=== PATIENT | female | born 1995 | race Caucasian/White ===

== ENCOUNTER 2018-09-19 11:54 | Emergency (ER) | payer OTHER, SELFPAY ==
[2018-09-19 11:55] VITALS: BP 100/60; PULSE 90; RESP 15; TEMP 36.6; O2SAT 96; BMI 26.6
--- NOTE | 2018-09-19 12:31 | ED.DCSUM_ITS ---
- ER Visit Summary Date of Service: 09/19/18 Chief Complaint: Lip piercing embedded in the skin History of Present Illness: The patient is a 23 F had her lower lip pierced on both sides on Thursday. Today the left lower lip piercing has retracted inside the skin and she wants it removed. Physical Examination: Well-appearing young female no acute distress. Vital signs are stable and afebrile. HEENT exam patient has piercings in both her upper and lower lip. The left lower lip piercing is retracted inside the skin. It swollen and tender. There is no obvious signs of infection at this time. Inside her mouth there is no swelling. Lungs clear to auscultation. Heart regular rhythm. Otherwise exam unremarkable. Test Results: None Emergency Department Course and Treatment: Patient did not need any lidocaine as able to manipulate the piercing back to the original hole. Discussed with the patient to the swelling in my concern that it would retract on the skin we did remove it. Also due to the amount of swelling and reported on antibiotics in case this is becoming an early infection. Treatment Plan: Keflex 500 4 times daily for 5 days. Ice to the area. Return if worse. Disposition: Discharge Impression: Removed piercing from left lower lip that was embedded in the subcutaneous tissue This note was generated with [employer] dictation software. It may contain incorrect words, spelling, and punctuation that were not noted in review of the chart prior to signing ED Disposition - Plan for ED Patient: Referrals: Phan Barreto III, MD [Primary Care Provider] -
--- NOTE | 2018-09-19 13:39 | ED.DEP ---
ED Disposition - Plan for ED Patient: Disposition: Home or Assisted Living Prescriptions: Cephalexin [Keflex] 500 mg PO Q6 #20 cap Referrals: Phan Barreto III, MD [Primary Care Provider] - As Needed Additional Instructions: Today. Motrin for Finish the 5 days of antibiotics to prevent a soft tissue infection.
== END 2018-09-19 13:52 | disposition home or self-care (01) ==
PROVIDERS: Emergency Provider Emergency Medicine; Family Provider Family Medicine; PCP Family Medicine
DX: S00.551A Superficial foreign body of lip, initial encounter (principal); W45.8XXA Other foreign body or object entering through skin, initial encounter; Y93.9 Activity, unspecified; Y92.9 Unspecified place or not applicable; Y99.9 Unspecified external cause status; Z72.0 Tobacco use
CPT/HCPCS: 99282

== ENCOUNTER → 2019-01-20 17:57 | Outpatient (CLI) | payer BC, SELFPAY ==
[2019-01-25 15:06] LABS: HPV Reflexed? NOT INDICATED
== END ==
PROVIDERS: Family Provider Family Medicine; PCP Family Medicine; Referring Provider Obstetrics & Gynecology; Visit Provider Obstetrics & Gynecology
DX: Z12.4 Encounter for screening for malignant neoplasm of cervix (principal)
CPT/HCPCS: 88175; G0145

== ENCOUNTER 2021-04-05 22:18 | Emergency (ER) | payer OTHER, SELFPAY ==
[2021-04-05 22:18] VITALS: BP 134/85; PULSE 127; RESP 19; TEMP 36.9; O2SAT 98; BMI 29.1
--- NOTE | 2021-04-05 22:30 | EX.ED.DYSGE1 ---
HPI History of Present Illness Chief Complaint: Cold Sx Informant: patient and spouse/S.O. Onset/Context/Timing Onset: Today Current Severity: Mild Maximum Severity: Moderate Narrative Narrative: Patient presents secondary to fever, sore throat, congestion, cough. Patient states that she woke this morning feeling slightly congested and her symptoms keep worsening throughout the day. Temperature has been fluctuating between 100-101. Cough has been largely nonproductive. Patient was exposed to her father who unfortunately from [facility] yesterday. Patient did have 2 doses of the Pfizer vaccine in January. She did not receive the booster. [facility] Medical History Depression PCOS (polycystic ovarian syndrome) Home Medications cephalexin 500 mg PO Q6 #20 cap 09/19/18 [Rx Last Taken Unknown] norgestimate-ethinyl estradiol [Sprintec (28)] 1 tab PO DAILY 09/19/18 [History Last Taken 09/19/18] Allergy/AdvReac Type Severity Reaction Status Date / Time No Known Allergies Allergy Verified 09/19/18 11:59 Social History Smoking Status: Current every day smoker tobacco type: cigarettes ROS ROS ED Constitutional Constitutional ED: Reports fever(s) Eyes Eyes: Denies blurry vision or change in vision ENT ENT ED: Reports rhinorrhea and sore throat Cardiovascular Cardiovascular: Reports chest pain Respiratory/Chest Respiratory/Chest: Reports cough and dyspnea; Denies sputum Gastrointestinal Gastrointestinal: Denies abdominal pain, nausea or vomiting Musculoskeletal Musculoskeletal: Denies back pain or neck pain Integumentary Denies rash Neurologic Neurologic: Denies weakness Allergic/Immunologic Allergic/Immunologic ED: Denies urticaria EXAM Physical Exam Const Vital Signs: 04/05/21 22:18 04/05/21 23:11 Temperature 98.4 F Temperature Source Temporal Pulse Rate 127 H Respiratory Rate 19 H Respiratory Effort Normal Non-Labored Respiratory Depth Normal Respiratory Pattern Normal Blood Pressure 134/85 H Blood Pressure Mean 101 Pulse Ox 98 Oxygen Delivery Method Room Air Positive well nourished and well developed General Appearance ED: well developed HEENT Reports moist mucous membranes Eyes PERRL and EOMs intact bilaterally Neck no lymphadenopathy and supple Chest Wall inspection of chest normal and palpation of chest normal Resp normal respiratory effort and clear to auscultation bilaterally Cardio regular rhythm Rate: tachycardic GI non-tender Auscultation: hypoactive bowel sounds Palpation: soft Extremity normal to inspection Neuro oriented x3 Sensorium / Orientation: alert Psych mental status grossly normal Skin no rashes or lesions noted MDM MDM MDM Narrative Medical decision making narrative: Portable chest x-ray obtained along with rapid Covid test. Radiography Chest X-Ray - ED: 1 View, Read by ED Physician, Normal, Heart, Lungs and Mediastinum Diagnostic Testing: Clinical Impression(s) from Imaging Studies Chest X-Ray 04/05/21 22:43 IMPRESSION: No acute cardiopulmonary disease. Electronically Signed: Cole Fish, at 23:04 EST Tel [phone], Service support , Treatment and Re-Evaluation Comments:: Patient's chest x-ray is clear. Covid test does return positive. We did discuss monoclonal antibodies. She will be referred for this. Patient does state that she lives in the [place] area and will likely had back home so she does not expose other family members here locally. She will contact her primary care physician to see if she can have monoclonal infusion there. I will go ahead and refer her here as well and if she is unable to get something scheduled in [place] she will return back here for monoclonal antibody treatment. The following information was communicated to the patient or caregiver: Monoclonal antibody infusion is not an FDA approved drug. The FDA has authorized the emergency use of monoclonal antibody therapy. The patient had the option to refuse or accept treatment with monoclonal antibody therapy. The patient was informed that the number of people treated with monoclonal antibody therapy at this time is small. The potential benefits and the potential risks of monoclonal antibody therapy are not fully known. Potential benefits of monoclonal antibody include a reduced risk of progressing to severe COVID-19 infection. Potential risks or side effects of monoclonal antibody therapy include allergic reactions, side effects from injection including brief pain, bleeding, bruising of the skin, soreness, swelling, possible infection at the infusion site. The patient stated understanding of this information communicated and wished to proceed with monoclonal antibody infusion therapy. The patient is appropriate for the Monoclonal Antibody Infusion. The patient states understanding of this information communicated and wishes to proceed with monoclonal antibody infusion therapy. Patient agrees to receive either Balanivimab/Etesvimab or Casirivimab/Imdevimab upon availability. Discharge Plan Triage Chief Complaint: Cold Sx ED Provider: Yesi Dias Dx/Rx/DC Orders Clinical Impression: COVID-19 Instructions: Coronavirus Disease 2019 (COVID-19): Overview, Coronavirus Disease 2019 (COVID-19): Caring for Yourself or Others Prescriptions: No Action norgestimate-ethinyl estradiol [Sprintec (28)] 1 TABLET Dose.Pack 1 tab PO DAILY RF: 0 cephalexin 500 MG capsule 500 mg PO Q6 Qty: 20 RF: 0 Stand Alone Forms: ED Work / School Excuse, Monoclonal Antibody Referral Primary Care Provider: Care Physician,No Primary Referrals: Care Physician,No Primary [Primary Care Provider] - Activity Restrictions/Additional Instructions: As discussed, contact your primary care physician to try to arrange monoclonal antibody treatment. You will be referred here at [facility] as well. Disposition Disposition: Home, Self Care
--- NOTE | 2021-04-05 22:43 | RAD_ITS ---
STUDY: X-RAY CHEST REASON FOR EXAM: Female, 26 years old. Cough. TECHNIQUE: Single AP portable view of the chest. COMPARISON: None. FINDINGS: The lungs are clear and expanded. There is no demonstrated pleural abnormality. Normal size heart. Normal mediastinum and yecenia. Normal visualized pulmonary arteries. Normal visualized aortic arch and descending thoracic aorta. Normal visualized thoracic spine. Normal visualized ribs, clavicles, and shoulders. There is no demonstrated abnormality of the visualized soft tissue structures of the upper abdomen. RAD/Chest 1 View (Portable) IMPRESSION: No acute cardiopulmonary disease. Electronically Signed: Cole Fish DO at 23:04 EST Tel [phone], Service support ,
== END 2021-04-05 23:51 | disposition home or self-care (01) ==
PROVIDERS: Emergency Provider Emergency Medicine
DX: U07.1 COVID-19 (principal); E28.2 Polycystic ovarian syndrome; F17.210 Nicotine dependence, cigarettes, uncomplicated
CPT/HCPCS: 71045; 87426; 99282

== ENCOUNTER 2024-01-17 13:42 | Emergency (ER) | payer SELFPAY ==
[2024-01-17 13:44] VITALS: BP 126/98; PULSE 99; RESP 16; TEMP 37.3; O2SAT 99; BMI 32.4
--- NOTE | 2024-01-17 14:58 | EX.ED.DYSGE1 ---
HPI History of Present Illness Chief Complaint: Edema Narrative Narrative: Chief complaint and HPI: Right cheek swelling. 29-year-old female presents for evaluation of right cheek swelling. Patient states she woke up with it today. She endorses pain in the area of the swelling. She denies any fever, chills, URI symptoms, headache, neck pain, earache, dental pain, difficulty swallowing, abdominal pain, nausea, vomiting. She denies any trauma to the face. States this has never happened to her in the past. Review of systems: See HPI Medications: As listed on the chart Allergies: As listed on the chart PFSH: Per chart Vital signs: As listed on the chart. Reviewed. Physical exam: Gen: A&O x3, NAD Head: Normocephalic, atraumatic Eyes: No sclera icterus, conjunctiva clear, PERRL, EOMI ENT: TMs clear BL, mild swelling of the right cheek externally, moist mucous membranes, posterior oropharynx unremarkable, uvula midline, tonsils not enlarged, no tonsillar exudates, multiple broken teeth and dental caries, patient's right lower wisdom tooth is breaking through the gingiva-there is stuck food in this area-has tenderness to palpation of this tooth/gingiva-states this recreates the pain she is feeling, piece of food was removed with mild gingivitis of the gum-no abscess or purulence, tolerating secretions, no oral swelling, no Steve angina, no tongue enlargement Neck: Trachea midline, No JVD, Full ROM, No meningismus CV: RRR, no murmurs, no peripheral edema Resp: Lungs CTA BL, no w/r/c Musc: Full ROM, no deformity Skin: Warm, dry, no rash Neuro: Alert, oriented, grossly intact, sensation intact Psych: Cooperative, appropriate mood and affect [facility] Medical History Depression PCOS (polycystic ovarian syndrome) Home Medications ?Medication ?Instructions ?Recorded ?Last Taken ?Type cephalexin 500 mg capsule 500 mg PO Q6 #20 caps 09/19/18 Unknown Rx norgestimate 0.25 mg-ethinyl 1 tab PO DAILY 09/19/18 09/19/18 History estradiol 35 mcg tablet (Sprintec (28)) amoxicillin 875 mg-potassium 1 tab PO Q12H 7 days #14 tabs 01/17/24 Unknown Rx clavulanate 125 mg tablet Allergy/AdvReac Type Severity Reaction Status Date / Time No Known Allergies Allergy Verified 01/17/24 13:44 Social History Smoking Status: Former smoker EXAM Physical Exam Const Vital Signs: 01/17/24 13:44 01/17/24 14:23 01/17/24 15:18 Temperature 99.1 F 99.1 F Temperature Source Oral Pulse Rate 99 99 Respiratory Rate 16 16 Respiratory Effort Normal Non-Labored Respiratory Pattern Normal Blood Pressure 126/98 H 126/98 H Blood Pressure Mean 107 107 Pulse Ox 99 99 Oxygen Delivery Method Room Air MDM MDM MDM Narrative Medical decision making narrative: 29-year-old female presents for evaluation of right cheek swelling. See physical exam findings. Differential diagnosis includes dental infection, dental abscess, dental carry. No dental abscess visualized on exam for I&D. Concern is for dental infection. Patient was educated on ibuprofen and Tylenol as needed for pain. Will prescribe her with a 7-day course of Augmentin. She is to follow-up with her dentist or a dentist that was provided to her with the clinic list. She confirmed understanding. Return precautions explained. Impression: 1. Right lower molar dental infection 2. Multiple dental caries Discharge Plan Triage Chief Complaint: Edema ED Provider: Bruno Corrigan Dx/Rx/DC Orders Clinical Impression: Dental infection Instructions: Dental Abscess Prescriptions: New amoxicillin-pot clavulanate 875-125 mg tablet 1 tab PO Q12H 7 Days Qty: 14 0RF No Action norgestimate-ethinyl estradiol [Sprintec (28)] 1 TABLET tablet 1 tab PO DAILY Patient Comments: TAKE 1 TABLET BY MOUTH EVERY DAY cephalexin 500 MG capsule 500 mg PO Q6 Qty: 20 0RF Primary Care Provider: Care Physician,No Primary Referrals: Care Physician,No Primary [Primary Care Provider] - Activity Restrictions/Additional Instructions: Follow-up with your dentist or one of the dental clinics that was provided to you. Take all of your antibiotics. Motrin and Tylenol as needed for pain. Return back if symptoms change or worsen. Print Language: Taiwanese Disposition Disposition: Home, Self Care Discharge Date/Time: 01/17/24 15:20
[2024-01-17 15:18] VITALS: BP 126/98; PULSE 99; RESP 16; TEMP 37.3; O2SAT 99
== END 2024-01-17 15:20 | disposition home or self-care (01) ==
LOC: ED 15:08
PROVIDERS: Emergency Provider Surgery; Visit Provider Surgery
DX: K04.7 Periapical abscess without sinus (principal); Z87.891 Personal history of nicotine dependence; R60.9 Edema, unspecified; K02.9 Dental caries, unspecified
CPT/HCPCS: 99282

== ENCOUNTER 2024-10-24 15:55 | Emergency (ER) | payer BC, SELFPAY ==
[2024-10-24 15:56] VITALS: BP 128/89; PULSE 101; RESP 16; TEMP 36.6; O2SAT 100; BMI 33.7
--- NOTE | 2024-10-24 16:25 | ED.VIS.DENTA ---
HPI History of Present Illness Chief Complaint: Dental Informant: patient Onset/Context/Timing Onset: Days Context: Gradual Onset Timing: Intermittent Maximum Severity: Moderate Narrative Narrative: 28-year-old female no past medical history. Having left upper dental pain intermittently the last several days to weeks. Also has known cavities on the right lower jaw. Currently does not have dental insurance. Prior similar symptoms: Yes Recent Illness/Hospitalization: No PFSH PFSH Medical History Physical exam, pre-employment Depression PCOS (polycystic ovarian syndrome) Home Medications ?Medication ?Instructions ?Recorded ?Last Taken ?Type cephalexin 500 mg capsule 500 mg PO Q6 #20 caps 09/19/18 Unknown Rx norgestimate 0.25 mg-ethinyl 1 tab PO DAILY 09/19/18 09/19/18 History estradiol 0.035 mg tablet (Sprintec (28)) amoxicillin 875 mg-potassium 1 tab PO Q12H 7 days #14 tabs 01/17/24 Unknown Rx clavulanate 125 mg tablet penicillin V potassium 500 mg 500 mg PO 4X/DAY #40 tabs 10/24/24 Unknown Rx tablet Allergy/AdvReac Type Severity Reaction Status Date / Time No Known Allergies Allergy Verified 01/17/24 13:44 Social History Smoking Status: Never smoker ROS ROS ED ROS Narrative Denies recent illness. Constitutional Constitutional ED: Denies chills or fever(s) Eyes Eyes: Denies blurry vision ENT ENT ED: Denies ear pain Cardiovascular Cardiovascular: Denies chest pain Respiratory/Chest Respiratory/Chest: Denies cough or dyspnea Gastrointestinal Gastrointestinal: Denies abdominal pain Genitourinary Genitourinary ED: Denies dysuria or hematuria Musculoskeletal Musculoskeletal: Denies arthralgias or back pain Integumentary Denies abscess or Abrasions Neurologic Neurologic: Denies headache(s) Psychiatric Psychiatric: Denies anxiety Endocrine Endocrinology: Denies cold intolerance Hematologic/Lymphatic Hematologic/Lymphatic: Denies easy bleeding Allergic/Immunologic Allergic/Immunologic ED: Denies mouth swelling EXAM Physical Exam Narrative Exam Narrative: Well-appearing 29-year-old female sitting upright in bed. Vital signs stable afebrile. No distress. H EENT exam left upper dentition midportion third to last molar there is a chip in the posterior aspect. There is no gingival swelling or abscess. Mildly tender. Right lower jaw there is no swelling but she has 2 large cavities decaying the tooth down to the gingiva. There is no abscess. No trismus. Posterior pharynx normal. No trouble swallowing or breathing. Underneath the tongue is normal in appearance. No Toya's. Neck nontender no lymphadenopathy. Lungs clear to auscultation bilaterally. Heart regular rhythm no murmur. Abdomen soft nontender. Moving all 4 extremities. Awake and alert. Const Vital Signs: 10/24/24 15:56 Temperature 97.8 F Temperature Source Temporal Pulse Rate 101 H Respiratory Rate 16 Blood Pressure 128/89 H Blood Pressure Mean 102 Pulse Ox 100 Oxygen Delivery Method Room Air Positive well nourished and well developed; Negative for cachectic, contractures or unkempt General Appearance ED: well developed and NAD; Negative for unkempt, cachectic or contractures Nutritional Appearance: Negative for cachectic HEENT HEENT Narrative: Left upper molar through from the back is chipped. Right lower jaw molars large cavity is decayed to the gumline. Minimal gingival swelling no abscess. No trismus. No trouble swallowing or breathing. Negative for trauma Mouth ED: Yes oral and palatal mucosa normal, Yes lips normal, Yes tongue normal and Yes salivary gland normal Mouth: oral and palatal mucosa normal, lips normal, tongue normal and salivary gland normal Teeth and Gingiva: abnormal tooth and associated gingiva, caries and poor dentition Throat: posterior oropharynx normal Eyes PERRL and EOMs intact bilaterally Neck no lymphadenopathy, supple and no JVD Lymph Lymphatic: no lymphadenopathy noted Chest Wall inspection of chest normal and palpation of chest normal Resp normal respiratory effort, no retractions and clear to auscultation bilaterally Cardio regular rate, regular rhythm, S1 normal heart sound, S2 normal heart sound and no murmurs GI normal to inspection, nondistended, normoactive bowel sounds, non-tender, non-distended and no masses Back/Spine no CVA tenderness Extremity no joint enlargement Neuro oriented x3, CN's II-XII intact bilaterally, moves all extremities and no focal motor deficits Sensorium / Orientation: oriented to person, oriented to place and oriented to time Motor Exam: strength 5/5 throughout Psych mental status grossly normal Appearance: Negative for unkempt Skin no rashes or lesions noted and no wounds Image ED - URI/Dental Diagram:  1. Fractured left upper third molar from the back. 2. Large cavity decay of the third molar on the right bottom and first premolar. MDM MDM MDM Narrative Medical decision making narrative: 29-year-old with placed on Pen-Vee K for dental cavities and gingival swelling. Also has a dental fracture. She [facility]. History & Record Review Discussion w/independent historian: Patient Discharge Plan Triage Chief Complaint: Dental ED Provider: Ruslan Wade Dx/Rx/DC Orders Clinical Impression: Pain, dental, Fracture of tooth, Dental cavity Instructions: ED Dental Pain, ED Dental Cavity Prescriptions: New penicillin V potassium 500 mg tablet 500 mg PO 4X/DAY Qty: 40 0RF No Action norgestimate-ethinyl estradiol [Sprintec (28)] 1 TABLET tablet 1 tab PO DAILY Patient Comments: TAKE 1 TABLET BY MOUTH EVERY DAY cephalexin 500 MG capsule 500 mg PO Q6 Qty: 20 0RF amoxicillin-pot clavulanate 875-125 mg tablet 1 tab PO Q12H 7 Days Qty: 14 0RF Primary Care Provider: Gopal Galarza Referrals: Care Physician,No Primary [Non-Staff] - [facility] [Non-Staff] - As soon as possible Activity Restrictions/Additional Instructions: Ice to your jaw. Motrin and Tylenol for pain. Penicillin 4 times a day. Call the [facility] tell them you need dental care for fractured tooth and cavities and get an appointment set up. They are across the street from the hospital. Print Language: Wolof Disposition Disposition: Home, Self Care
[2024-10-24 16:42] VITALS: BP 122/90; PULSE 81; RESP 18; TEMP 36.9; O2SAT 100
--- OUTSIDE RECORDS SUMMARY | 2024-10-24 21:26 | XMS RPT_ITS | CCD ---
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 Name Role Phone No, Physician Primary Care Provider Santino Al DO, Lele Alvaardo Primary Care Provider CARRIE JEAN-BAPTISTE Attending LELE Viera Primary Care Unavaila ble PARVEEN, KELECHI EDWARD Admitting Unavailabl e PARVEEN, KELECHI EDWARD Attending LELE Flowers Primary Care Unavaila ble PARVEEN, KELECHI EDWARD Admitting Unavailabl e PARVEEN, KELECHI EDWARD Referring UnavailLELE Aguilera Primary Care Unavaila ble PARVEEN, KELECHI EDWARD Admitting UnavailANCELMO Covington Attending LELE Flowers Primary Care Unavaila ANCELMO Esteves Attending UnavailLELE Aguilera Primary Care Unavaila LELE Castañeda Primary Care Unavaila LELE Castañeda Attending Unavaila LELE Castañeda Primary Care Unavaila ble PARVEEN, KELECHI EDWARD Attending MARCO ANTONIO Leyva Referring Unavail LELE Gonzalez Primary Care Unavaila ble PARVEEN, KELECHI EDWARD Admitting Unavailabl e PARVEEN, KELECHI EDWARD Referring UnavailLELE Aguilera Primary Care Unavaila LELE Castañeda Attending Unavaila LELE Castañeda Primary Care Unavaila ble PARVEEN, KELECHI EDWARD Attending LELE Flowers Primary Care Unavaila LELE Castañeda Attending Unavaila LELE Castañeda Primary Care Unavaila ble Servando DO, Lele Alvarado Primary Care Provider AUGUSTA KERR Attending Unavailable LELE AL Primary Care Unavaila ble SERVANDO, LELE ALVARADO Primary Care Unavaila ble AUGUSTA KERR Attending Unavailable LELE AL Primary Care Unavaila SOCO Renteria Attending Unavailabl e No, Physician Primary Care Provider UnavailKeaton Browning Unavailable Unavailable MARZENA SULTANA Attending Unavailable NO, PHYSICIAN Primary Care Unavailable SERVANDO, LELE ALVARADO Primary Care Unavaila CAROLINE Meyer Attending Unavail able Care Physician, No Primary Primary Care Unava ilable Kali Dawkins Attending Unavailable Care Physician, No Primary Referring Unava ilable Care Physician, No Primary Primary Care Unava ilable Kali Dawkins Attending Unavailable Care Physician, No Primary Referring Unava ilable Care Physician, No Primary Primary Care Unava ilable Bruno Corrigan Attending Unavailbuck Galarza DO, [facility] Primary Care Provid er GEOVANNI CATO SHRADDHA Attending Dwight GALARZA, [facility] Primary Care Dwight GALARZA, [facility] Attending Dwight RODARTE Referring Unavailable [facility] Primary Care Unavamariposa GALARZA, CATO SHRADDHA Attending Dwight GALARZA, [facility] Primary Care Vivianavamraiposa GALARZA CATO SHRADDHA Attending Dwight GALARZA, [facility] Primary Care Unavamariposa GALARZA, [facility] Primary Care VivianavaWEDNY Maloney Attending Unavailable [facility], [facility] Primary Care ANUSHA Flores Referring Unavailable [facility], [facility] Primary Care Unavamariposa lablily GALARZA, [facility] Primary Care Unavamariposa GALARZA, CATO SHRADDHA Referring Unavamariposa lablily GALARZA, [facility] Primary Care Unavamariposa GALARZA, CATO SHRADDHA Referring UnavaLOC Maldonado Attending Unavailable GEOVANNI [facility] Dwight GALARZA [facility] WENDY Schreiber Attending Gigi GALARZA [facility] WENDY Schreiber Attending WENDY Greenberg Referring Unavailable Dr. Ruslan Wade MD Emergency Provider Dr. Gopal Galarza DO Primary Care Provider Medications Current Medications Medication Drug Class(es) Dates Sig (Normalized) Sig (Original) amoxicillin 875 mg / clavulanate 125 mg oral tablet (1 source) Penicillin-class Antibacterial Start: 01-17-2024 Amoxicillin-Pot Clavulanate 875-125 mg tablet Active 1 {tbl} PO Q12H 14 7 0 January 17, 2024 12:00am cephalexin 500 mg oral capsule (1 source) Cephalosporin Antibacterial Start: 09-19-2018 take 1 capsule by mouth every six hours Cephalexin 500 MG capsule Active 500 mg PO EVERY 6 HOURS 20 0 September 19, 2018 12:00am citalopram 40 mg oral tablet (14 sources) Serotonin Reuptake Inhibitor Start: 08-30-2024 End: 08-30-2025 take 1 tablet by mouth once daily citalopram (CELEXA) 40 mg tablet Take 1 tablet by mouth once daily. 90 tablet 3 08/30/2024 08/30/2025 Active Start: 05-26-2024 End: 08-31-2024 take 0.5 tablet by mouth once daily, then take 1 tablet by mouth once daily citalopram (CELEXA) 20 mg tablet Indications: Anxiety with depression Take 0.5 tablets by mouth once daily for 7 days, THEN 1 tablet once daily. 94 tablet 05/26/2024 08/31/2024 Active Norgestimate-Ethinyl Estradiol (1 source) Progestin, Estrogen Start: 09-19-2018 take 1 tablet by mouth once daily Norgestimate-Ethinyl Estradiol (Sprintec (28)) 1 TABLET tablet Active 1 {tbl} PO DAILY September 19, 2018 12:00am etonogestrel 68 mg drug implant (5 sources) Progestin Start: 09-22-2024 End: 09-22-2027 etonogestrel (NEXPLANON) subdermal implant 68 mg Indications: Insertion of implantable subdermal contraceptive 1 each by SUBDERMAL route as directed. 1 each 09/22/2024 09/22/2027 Active FLUoxetine 20 mg oral capsule (20 sources) Serotonin Reuptake Inhibitor Start: 01-07-2021 End: 02-23-2022 take 3 capsules by mouth once daily FLUoxetine (PROzac) 20 MG capsule Indications: Depression, unspecified depression type Take 3 (three) capsules (60 mg total) by mouth daily . 270 capsule 0 11/25/2021 Active Start: 12-04-2020 End: 12-04-2021 take 1 capsule by mouth once daily FLUoxetine (PROZAC) 40 MG capsule Indications: Depression, unspecified depression type Take 1 (one) capsule (40 mg total) by mouth daily . 30 capsule 11 12/04/2020 01/07/2021 Discontinued Start: 11-06-2020 End: 11-06-2021 take 1 capsule by mouth once daily FLUoxetine (PROZAC) 20 MG capsule Indications: Depression, unspecified depression type Take 1 (one) capsule (20 mg total) by mouth daily . 30 capsule 2 11/06/2020 12/04/2020 Discontinued metFORMIN hydrochloride 500 mg oral tablet (20 sources) Biguanide Start: 05-26-2024 End: 08-31-2024 take 1 tablet by mouth once daily at breakfast, then take 1 tablet by mouth twice daily at mealtime metFORMIN (GLUCOPHAGE) 500 mg tablet Indications: PCOS (polycystic ovarian syndrome) Take 1 tablet by mouth daily with breakfast for 7 days, THEN 1 tablet two times a day with meals. 187 tablet 05/26/2024 Active Start: 08-26-2020 take 1 tablet by saritha th twice daily metFORMIN (GLUCOPHAGE) 500 MG tablet Indications: polycystic ovarian syndrome Take 1 tablet by mouth 2 (two) times a day Reasons: polycystic ovarian syndrome, a disease with cysts in the ovaries. 0 08/26/2020 Active metroNIDAZOLE 500 mg oral tablet (1 source) Nitroimidazole Antimicrobial Start: 09-29-2020 End: 10-06-2020 take 1 tablet by mouth twice daily metroNIDAZOLE (FlagyL) 500 MG tablet Indications: Bacterial vaginosis Take 1 (one) tablet (500 mg total) by mouth 2 (two) times a day for 7 days . 14 tablet 0 09/29/2020 10/06/2020 Active penicillin v potassium 500 mg oral tablet (5 sources) Start: 10-24-2024 take 1 tablet by mouth four times daily Penicillin V Potassium 500 mg tablet Active 500 mg PO 4 TIMES DAILY 40 0 October 24, 2024 12:00am Start: 11-20-2020 End: 12-04-2020 penicillin v potassium (VEET ID) 500 MG tablet triamcinolone acetonide 1 mg/ml topical cream (1 source) Corticosteroid Start: 03-05-2022 End: 04-04-2022 triamcinolone (KENALOG) 0.1 % cream Apply topically 2 (two) times a day . 15 g 0 03/05/2022 04/04/2022 Active Completed/Discontinued Medications Medication Drug Class(es) Dates Sig (Normalized) Sig (Original) acetaminophen 325 mg / HYDROcodone bitartrate 5 mg oral tablet (4 sources) Opioid Agonist Start: 11-20-2020 End: 12-04-2020 HYDROcodone-acetam inophen (NORCO) 5-325 mg per tablet [id number] 200 actuat albuterol 0.09 mg/actuat metered dose inhaler (1 source) beta2-Adrenergic Agonist Start: 11-03-2018 End: 05-26-2024 take 2 puff(s) by inhalation every six hours as needed albuterol HFA (PROAIR HFA) 90 mcg/actuation inhaler Inhale 2 Puffs as instructed every 6 hours as needed. 1 Inhaler 11/03/2018 05/26/2024 Discontinued (Course of therapy completed) amoxicillin 500 mg oral capsule (1 source) Penicillin-class Antibacterial Start: 10-10-2015 End: 05-26-2024 take 1 capsule by mouth three times daily amoxicillin (POLYMOX, AMOXIL) 500 mg capsule Take 1 capsule by mouth three times daily. 30 capsule 0 10/10/2015 05/26/2024 Discontinued (Course of therapy completed) benzonatate 100 mg oral capsule (1 source) Non-narcotic Antitussive Start: 11-03-2018 End: 05-26-2024 take 2 capsules by mouth every eight hours as needed benzonatate (TESSALON PERLE) 100 mg capsule Take 2 capsules by mouth three times daily as needed. 30 capsule 11/03/2018 05/26/2024 Discontinued (Course of therapy completed) clonazePAM 0.5 mg oral tablet (8 sources) Benzodiazepine Start: 06-02-2024 End: 08-31-2024 take 1 tablet by mouth twice daily as needed for anxiety clonazePAM (KLONOPIN) 0.5 mg tablet Indications: VIVIANA (generalized anxiety disorder) , Panic disorder Take 1 tablet by mouth two times a day as needed for anxiety for up to 7 days. 14 tablet 06/02/2024 08/31/2024 Discontinued (Discontinued by Patient) diclofenac sodium 75 mg delayed release oral tablet (5 sources) Nonsteroidal Anti-inflammatory Drug Start: 11-06-2020 End: 11-06-2021 take 1 tablet by mouth twice daily at mealtime diclofenac sodium (VOLTAREN) 75 MG EC tablet Indications: Ganglion of wrist, unspecified laterality Take 1 (one) tablet (75 mg total) by mouth 2 (two) times a day with meals . 60 tablet 0 11/06/2020 12/04/2020 Discontinued drospirenone / Ethinyl Estradiol (6 sources) Progestin, Estrogen Start: 08-25-2024 End: 09-22-2024 take 1 tablet by mouth once daily Drospirenone-Ethin yl Estradiol (MUKESH, 28,) 3-0.02 mg per tablet Indications: Encounter for initial prescription of contraceptive pills Take 1 tablet by mouth once daily. 84 tablet 3 08/25/2024 09/22/2024 Discontinued (Discontinued by Patient) Start: 08-25-2024 End: 07-27-2025 take 1 tablet by mouth once daily Drospirenone-Ethinyl Estradiol (MUKESH, 28,) 3-0.02 mg per tablet Indications: Encounter for initial prescription of contraceptive pills Take 1 tablet by mouth once daily. 84 tablet 3 08/25/2024 07/27/2025 Active Start: 06-10-2024 End: 05-12-2025 take 1 tablet by mouth once daily Drospirenone-Ethinyl Estradiol (MUKESH, 28,) 3-0.02 mg per tablet Indications: Encounter for initial prescription of contraceptive pills Take 1 tablet by mouth once daily. 84 tablet 3 06/10/2024 05/12/2025 Active fluconazole 150 mg oral tablet (7 sources) Azole Antifungal Start: 02-27-2021 End: 07-11-2021 fluconazole (DIFLUCAN) 150 MG tablet Indications: Vaginal discharge Take 1tab today and repeat in 72 hours if sx persist . 2 tablet 0 02/27/2021 07/11/2021 Discontinued Start: 09-29-2020 End: 11-06-2020 fluconazole (DIFLUCAN) 150 M G tablet Indications: Vaginal discharge Take 1 tab PO today, then repeat a dose in 3 days. . 2 tablet 0 09/29/2020 11/06/2020 Discontinued hydrocortisone 10 mg/ml / neomycin 3.5 mg/ml / polymyxin b [id number] unt/ml otic suspension (1 source) Aminoglycoside Antibacterial, Polymyxin-class Antibacterial, Corticosteroid Start: 10-10-2015 End: 05-26-2024 qzzjubvc-qshiantxe-qnlwndduu isone (CORTISPORIN) 3.5-10,000-1 mg/mL-unit/mL-% otic suspension Use 3 Drops in both ears three times daily. 1 Bottle 0 10/10/2015 05/26/2024 Discontinued (Course of therapy completed) ibuprofen 800 mg oral tablet (5 sources) Nonsteroidal Anti-inflammatory Drug Start: 11-29-2020 End: 07-11-2021 take 1 tablet by mouth every six hours as needed ibuprofen (ADVIL,MOTRIN) 800 MG tablet Take 800 mg by mouth every 6 (six) hours as needed for pain . 0 11/29/2020 07/11/2021 Discontinued Problems Active Problems Problem Classification Problem Date Documented Date Episodic/Chronic Administrative/socia l admission (8 sources) Patient encounter status; Translations: [Persons encountering health services in other specified circumstances] Episodic Allergic reactions (2 sources) Dermatitis, unspecified; Translations: [Dermatitis, unspecified] Onset: 03-05-2022 Episodic Anxiety disorders (20 sources) Mixed anxiety and depressive disorder; Translations: [Other specified anxiety disorders] Onset: 05-26-2024 05-26-2024 Chronic Contraceptive and procreative management (3 sources) Encounter for initial prescription of contraceptive pills; Translations: [History of contraceptive usage] Onset: 06-10-2024 08-31-2024 Episodic Disorders of teeth and jaw (3 sources) Dental caries; Translations: [Dental caries, unspecified] 10-24-2024 Episodic E Codes: Fall (1 source) Fall; Translations: [Unspecified fall, initial encounter] 06-07-2024 Episodic Headache; including migraine (2 sources) Tension-type headache, unspecified, not intractable; Translations: [Tension-type headache, unspecified, not intractable] Onset: 03-05-2022 Chronic Immunizations and screening for infectious disease (3 sources) Contact with and (suspected) exposure to other viral communicable diseases; Translations: [Exposure to SARS-associated coronavirus] Onset: 10-10-2024 Episodic Inflammatory diseases of female pelvic organs (1 source) Bacterial vaginosis; Translations: [Acute vaginitis] Episodic Menstrual disorders (9 sources) Amenorrhea; Translations: [Amenorrhea, unspecified] Onset: 06-10-2024 06-10-2024 Chronic Mood disorders (19 sources) Depressive disorder; Translations: [Major depressive disorder, single episode, unspecified] Onset: 11-06-2020 Chronic Other endocrine disorders (20 sources) Polycystic ovary syndrome; Translations: [Polycystic ovarian syndrome] Onset: 07-11-2021 Chronic Other endocrine disorders (1 source) Polycystic ovarian syndrome; Translations: [PCOS (polycystic ovarian syndrome)] Onset: 05-26-2024 Chronic Other female genital disorders (1 source) Abnormal uterine bleeding; Translations: [Abnormal uterine and vaginal bleeding, unspecified] 08-02-2024 Chronic Other female genital disorders (1 source) Abnormal uterine and vaginal bleeding, unspecified; Translations: [Abnormal uterine bleeding] Onset: 08-02-2024 Chronic Other female genital disorders (3 sources) Vaginal discharge; Translations: [Other specified noninflammatory disorders of vagina] Episodic Other non-traumatic joint disorders (4 sources) Acute ankle pain; Translations: [Pain in left ankle and joints of left foot] 06-07-2024 Episodic Other nutritional; endocrine; and metabolic disorders (18 sources) Obesity; Translations: [Class 1 obesity with body mass index (BMI) of 33.0 to 33.9 in adult, unspecified obesity type, unspecified whether serious comorbidity present] Onset: 05-29-2024 05-26-2024 Chronic Other nutritional; endocrine; and metabolic disorders (1 source) Body mass index (BMI) 38.0-38.9, adult; Translations: [Class 2 obesity with body mass index (BMI) of 38.0 to 38.9 in adult, unspecified obesity type, unspecified whether serious comorbidity present] Onset: 07-15-2024 Chronic Other nutritional; endocrine; and metabolic disorders (1 source) Body mass index (BMI) 37.0-37.9, adult; Translations: [Class 2 obesity with body mass index (BMI) of 37.0 to 37.9 in adult, unspecified obesity type, unspecified whether serious comorbidity present] Onset: 06-10-2024 Chronic Other nutritional; endocrine; and metabolic disorders (1 source) Body mass index (BMI) 33.0-33.9, adult; Translations: [Class 1 obesity with body mass index (BMI) of 33.0 to 33.9 in adult, unspecified obesity type, unspecified whether serious comorbidity present] Onset: 05-29-2024 Chronic Other screening for suspected conditions (not mental disorders or infectious disease) (6 sources) Encounter for screening for lipoid disorders; Translations: [Encounter for screening for other suspected endocrine disorder] Onset: 05-26-2024 10-10-2024 Episodic Other skin disorders (1 source) Abnormal hair finding; Translations: [Other hair color and hair shaft abnormalities] 05-27-2024 Episodic Other upper respiratory infections (2 sources) Acute upper respiratory infection, unspecified; Translations: [Acute upper respiratory infection, unspecified] Onset: 03-05-2022 Episodic Residual codes; unclassified (1 source) Edema, unspecified; Translations: [Edema, unspecified] Onset: 02-11-2024 Episodic Residual codes; unclassified (9 sources) FH: Polycystic kidney; Translations: [Family history of polycystic kidney] Onset: 07-26-2024 07-26-2024 Episodic Residual codes; unclassified (1 source) Family history of polycystic kidney; Translations: [Family history of polycystic kidney] Onset: 07-15-2024 Episodic Sexually transmitted infections (not HIV or hepatitis) (2 sources) Human papillomavirus deoxyribonucleic acid test positive, high risk on cervical specimen; Translations: [Cervical high risk human papillomavirus (HPV) DNA test positive] 10-19-2024 Episodic Skull and face fractures (1 source) Fracture of tooth ; Translations: [Fracture of tooth (traumatic), initial encounter for closed fracture] 10-24-2024 Episodic Sprains and strains (3 sources) Sprain of unspecified ligament of right ankle, initial encounter; Translations: [Sprain of left ankle] Onset: 06-12-2021 Episodic Unclassified (1 source) Class 2 obesity with body mass index (BMI) of 38.0 to 38.9 in adult, unspecified obesity type, unspecified whether serious comorbidity present; Translations: [Class 2 obesity with body mass index (BMI) of 38.0 to 38.9 in adult, unspecified obesity type, unspecified whether serious comorbidity present] Onset: 07-15-2024 Unclassified (1 source) Class 2 obesity with body mass index (BMI) of 37.0 to 37.9 in adult, unspecified obesity type, unspecified whether serious comorbidity present; Translations: [Class 2 obesity with body mass index (BMI) of 37.0 to 37.9 in adult, unspecified obesity type, unspecified whether serious comorbidity present] Onset: 06-10-2024 Unclassified (1 source) Class 1 obesity with body mass index (BMI) of 33.0 to 33.9 in adult, unspecified obesity type, unspecified whether serious comorbidity present; Translations: [Class 1 obesity with body mass index (BMI) of 33.0 to 33.9 in adult, unspecified obesity type, unspecified whether serious comorbidity present] Onset: 05-29-2024 Viral infection (14 sources) Herpetic vulvovaginitis; Translations: [Herpesviral vulvovaginitis] Onset: 08-30-2015 08-30-2015 Chronic Viral infection (1 source) Disease caused by 2019-nCoV; Translations: [COVID-19] 04-05-2021 Episodic Past or Other Problems Problem Classification Problem Date Documented Da te Episodic/Chronic Other connective tissue disease (17 sources) Ganglion cyst of right wrist; Translations: [Ganglion, right wrist] Onset: 11-27-2020 Episodic Other connective tissue disease (15 sources) Ganglion of wrist; Translations: [Ganglion, unspecified wrist] Onset: 11-06-2020 Episodic Other injuries and conditions due to external causes (7 sources) Injury of right ankle; Translations: [Unspecified injury of right ankle, subsequent encounter] Onset: 07-11-2021 Episodic Other non-traumatic joint disorders (2 sources) Pain in right ankle and joints of right foot; Translations: [Pain in right ankle and joints of right foot] Onset: 06-12-2021 Episodic Other non-traumatic joint disorders (1 source) Pain in left ankle and joints of left foot; Translations: [Acute left ankle pain] Onset: 06-07-2024 Episodic Results Test Name Value Interpretation Reference Range Facility BACTERIAL VAGINOSIS NAATon 0 10-10-2024 Lactobacillus crispatus+gasseri+shital senii + Gardnerella vaginalis + Atopobium vaginae rRNA VICKY+probe Ql (Vag fld) Not detected Normal Not detected [facility] Comment on above: Order Comment: Speci men Type: SWABOrdering Facility: [facility] Address: [address] [place] [address] Performed By: #### C VTV, BVAMP ####[facility] LABCLIA [id number] [place] [address] [place] VERÓNICA/TRICHOMONAS NAATon 0 10-10-2024 C. glabrata RNA VICKY+probe Ql (Vag fld) Not detected Normal Not detected [facility] Comment on above: Order Comment: Speci men Type: SWABOrdering Facility: [facility] Address: [address] [place] [address] Performed By: #### C VTV, BVAMP ####[facility] LABIA [id number] [address] [place] Verónica sp DNA VICKY+probe Ql (Vag fld) Not detected Normal Not detected [facility] Comment on above: Order Comment: Speci men Type: SWABOrdering Facility: [facility] Address: [address] [place] [address] Result Comment: The Verónica species group target includes C. albicans, C. tropicalis, C. parapsilosis, and C. dubliniensis. Performed By: #### C VTV, BVAMP ####[facility] LABIA [id number] [place] [address] [place] T. vaginalis DNA VICKY+probe Ql (Unsp spec) Not detected Normal Not detected [facility] Comment on above: Order Comment: Speci men Type: SWABOrdering Facility: [facility] Address: [address] [place] [address] Performed By: #### C VTAmadou, BVAMP ####[facility] LABDESIREE [id number] [place] [address] [place] [facility] CNOVon 10-10-2024 CNOV Office Visit (OBGYWM ) DICKERSON,RUFINA Goel ([id number]) 1995 F Date Time Provider Department 10/10/24 4:00 PM WENDY BENNETT OBGYWM During your visit today, we recorded the following information about you: Blood pressure Weight Height 128/74 91.3 kg 1.628 m Wendy Bennett APRN.CNM 10/10/2024 4:36 PM 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 History Comments: Sexual Activity: Yes; Male Contraception: Pill Menstrual Tracking History Flowsheet Row Office Visit from 08/31/2024 in OB/Gynecology Menstrual Flow Moderate PAST MEDICAL HISTORY Diagnosis Date Abnormal glandular Papanicolaou smear of cervix 2020 Anxiety Depression Insomnia PCOS (polycystic ovarian syndrome) PAST SURGICAL HISTORY Procedure Laterality Date CYST/MOLE REMOVAL gaglean NEXPLANON INSERTION Left 09/22/2024 Placed in office VAGINOSCOPY 2020 Pt reported FAMILY HISTORY Problem Relation Age of Onset other (iron deficient) Mother Kidney Disease Father No Known Problems Sister Hypothyroidism Sister Diabetes Maternal Grandmother SOCIAL HISTORY Social History Tobacco Use Smoking status: Never Smokeless tobacco: Never Vaping Use Vaping status: Never Used Substance Use Topics Alcohol use: Yes Comment: socially Drug use: Yes Types: Marijuana REVIEW OF SYSTEMS Abdomen: No abdominal pain, nausea, vomiting, diarrhea, or constipation. No bloating, early satiety, indigestion, or increased flatulence. Bladder: No dysuria, gross hematuria, urinary frequency, urinary urgency, or incontinence. Breast: No breast lumps, nipple d/c, overlying skin changes, redness or skin retraction. Allergies and current medication updated:Yes SENSITIVE EXAM: The sensitive examination was discussed with the Patient or Patient's Authorized Vice President Media Relations. As applicable, any other physician, advance practice provider, medical student, or other health professional student that will be observing or involved in the sensitive examination for educational or training purposes was discussed with the Patient or Authorized Vice President Media Relations. The Patient or Authorized Vice President Media Relations has agreed to proceed with the sensitive examination. (Sensitive examination includes inspection and/or palpation of the breasts, pelvis, prostate and anorectal regions). EXAM: BP 128/74 Ht 5' 4.094 (1.63m) Wt 201 lb 3.2 oz (91.3kg) LMP 09/07/2024 BMI 34.43 kg/(m2). GENERAL: pleasant, female in no apparent distress HEENT: Normocephalic and atraumatic NECK: Supple and full range of motion DERMATOLOGY: Normal and without lesions BREAST: soft, non-tender, symmetric, no dominant mass, normal nipple-areolar complex, no lymphadenopathy, no nipple discharge, and bilateral piercings CHEST: Normal inspiratory effort ABDOMEN: soft, non-tender, and no masses PELVIC: external genitalia normal, normal Bartholin's glands, urethra, Almanor's glands, no vulvar lesions, no cervical lesions, good vaginal support, normal appearing perineal body and perianal region. Increased white/yellow discharge present. Cervix friable BIMANUAL: uterus normal size, shape and consistency, no adnexal masses, non-tender, and no cervical motion tenderness RECTOVAGINAL: deferred. NEURO: alert and oriented x3,exam grossly non-focal EXTREMITIES: normal ASSESSMENT/PLAN: 1) Health maintenance: Pap done with HPV. Nutrition, exercise and routine health maintenance exams reviewed. HPV vaccine: discussed, not interested 2) Contraception: Nexplanon. Contraceptive options reviewed and information provided. 3) STD screening: Declined STD check. 4) YEAST/BV- collected and sent Follow up one year or sooner as needed Wendy Bennett APRN.CNM Allergies As of Date: 10/10/2024 (No Known Allergies) Date Reviewed: 10/10/2024 Reviewed by: Betty Molina LPN - Fully Assessed Reason for Visit: Well Woman [1463] Primary Visit Diagnosis:Encounter for gynecological examination (general) (routine) without abnormal findings [Z01.419] Other Visit Diagnoses:Screening for cervical cancer [Z12.4] Encounter for screening for human papillomavirus (HPV) [Z11.51] (more content not included)... Normal [facility] HIGH RISK HUMAN PAPILLOMA GRAZYNA (HPV), PCR FOR DETECTION AND GENOTYPINGon 10-10-2024 HPV 16 Ag Ql (Unsp spec) Not detected Normal Not detected [facility] Comment on above: Order Comment: Speci men Type: FLUID SPECIMENOrdering Facility: [facility] Address: [address] [place] [address] Performed By: #### H PVHRT ####[facility] LABIA [id number] [place] [address] [place] HPV 18 Ag Ql (Unsp spec) Not detected Normal Not detected [facility] Comment on above: Order Comment: Speci men Type: FLUID SPECIMENOrdering Facility: [facility] Address: [address] [place] [address] Performed By: #### H PVHRT ####[facility] [id number] [place] [address] [place] HPV 31+33+35+39+45+51+52+ 56+58+59+66+68 DNA VICKY+probe Ql (Cvx) Detected Abnormal Not detected [facility] Comment on above: Order Comment: Speci men Type: FLUID SPECIMENOrdering Facility: [facility] Address: [address] [place] [address] Result Comment: High Risk HPV Other Type includes HPV types 31, 33, 35, 39, 45, 51, 52, 56, 58, 59, 66 and 68. Performed By: #### H PVHRT ####[facility] LABCLIA [id number] [place] [address] [place] PAP TESTon 10-10-2024 ADEQUACY Normal [facility] Comment on above: Order Comment: Speci men Type: FLUID SPECIMEN Ordering Facility: [facility] Address: [address] [place] [address] Result Comment: Sati sfactory for interpretation. Transformation zone present Performed By: #### L [id number] #### [facility] CLIA [id number] [address] [place] [address] [place] CASE REPORT Normal [facility] Comment on above: Order Comment: Speci men Type: FLUID SPECIMEN Ordering Facility: [facility] Address: [address] [place] [address] Result Comment: Gyne cologic Cytology Report Case: [id number] Authorizing Provider: Wendy Bennett APRN.CNM Collected: 10/10/2024 04:24 PM Ordering Location: OB/Gynecology Received: 10/11/2024 12:26 PM First Screen: Kelsi De Los Santos, CT, ASCP Pathologist: Leslie Phillips MD Specimen: Pap Test, ThinPrep, Cervix Performed By: #### L [id number] #### [facility] CLIA [id number] [address] [place] [address] [place] CLINICAL HISTORY, CYTOLOGY, FORENSIC SCIENCE TECHNICIAN Routine Exam Normal [facility] Comment on above: Order Comment: Speci men Type: FLUID SPECIMEN Ordering Facility: [facility] Address: [address] [place] [address] Performed By: #### L [id number] #### [facility] CLIA [id number] [address] [place] [address] [place] [address] [place] FINAL PERFORMING LAB Normal [facility] Comment on above: Order Comment: Speci men Type: FLUID SPECIMEN Ordering Facility: [facility] Address: [address] [place] [address] Result Comment: Tech nical component, bus driver/monitor screening performed at: [facility], [address] [place] [address] [place] [address] CLIA: [id number] Diagnostic interpretation performed at: [facility], [address] [place] [address] [place] [address] CLIA# [id number] Hospice Nurse Practitioner: Hugo Carrasco MD Performed By: #### L [id number] #### [facility] CLIA [id number] [address] [place], [place] [id number] [place] INTERPRETATION, CYTOLOGY, FORENSIC SCIENCE TECHNICIAN Normal [facility] Comment on above: Order Comment: Speci men Type: FLUID SPECIMEN Ordering Facility: [facility] Address: [address] [place] [address] Result Comment: Nega tive for intraepithelial lesion or malignancy. at 0810 EDT Performed By: #### L [id number] #### [facility] CLIA [id number] [address] [place], [place] [id number] [place] LMP 09/07/2024 Normal [facility] Comment on above: Order Comment: Speci men Type: FLUID SPECIMEN Ordering Facility: [facility] Address: [address] [place], [place] [id number] Performed By: #### L [id number] #### [facility] CLIA [id number] [address] [place], [place] [id number] [place] PAP DISCLAIMER COMMENT The Pap Smear is a screening test for cervical cancer. False negative results occur with all screening tests, emphasizing the need for rescreening at recommended intervals, and clinical correlation. Normal [facility] Comment on above: Order Comment: Mona schafer Type: FLUID SPECIMEN Ordering Facility: [facility] Address: [address] [place] [address] Performed By: #### L [id number] #### [facility] CLIA [id number] [address] [place] [address] OF [place] PAP AIR INTELLIGENCE OFFICER COMMENT This specimen has been analyzed by the FDA-approved [employer] System, which uses digital imaging and an enhanced artificial intelligence image analysis algorithm to identify newell of interest on the microscopic slide, to assist the radiotelegraphist and pathologist in evaluating cells on ThinPrep Pap tests. Following analysis, newell of interest on the microscopic slide selected by the algorithm are reviewed by a radiotelegraphist. If a sample requires hierarchical review, the pathologist will review the same newell of interest selected by the algorithm prior to final interpretation. Normal [facility] Comment on above: Order Comment: Mona schafer Type: FLUID SPECIMEN Ordering Facility: [facility] Address: [address] [place] [address] Performed By: #### L [id number] #### [facility] CLIA [id number] [address] [place] [address] OF [facility] CNOVon 09-22-2024 CNOV Office Visit (OBGYWM ) DICKERSONRUFINA ([id number]) 1995 F Date Time Provider Department 09/22/24 2:45 PM WENDY BENNETT OBGYWM During your visit today, we recorded the following information about you: Blood pressure Weight Last Period 110/66 92.1 kg 09/07/24 Wendy Bennett APRN.CNM 09/22/2024 3:32 PM Sabi Almaraz is a 29 year old patient who presents for Nexplanon insertion. Patient's last menstrual period was 09/07/2024 (exact date). VITALS: BP 110/66 Wt 203 lb (92.1kg) LMP 09/07/2024 test: negative Nexplanon lot #: [id number] Exp date: 10/03/2026 [facility]: [id number] UNIVERSAL PROTOCOL / SAFETY CHECKLIST Procedure to be Performed: Nexplanon (contraceptive subdermal implant) insertion Sign In: A Moment of CARE was completed. Appropriate PPE (Personal Protective Equipment) worn by all providers involved with the procedure. Special equipment not required. Patient/Surrogate Stated/Verified: Patient name, Date of , Relevant allergies, and The intended procedure Time Out: Relevant labs, photos, and/or imaging studies have been reviewed. Intended patient and procedure match the source document(s) (e.g. consent, HANDP, associated studies [imaging, pathology]) match the intended patient and procedure. Consent obtained and matches the intended procedure. Yes. Correct side/site is not applicable. Medications required for this procedure are verified. Fire risk assessed and is not applicable. Implants: are not applicable. Sign Out: Specimens not collected. All instruments, equipment, possible retained foreign bodies are accounted for. Yes. The post-procedure plan of care has been communicated to the patient or surrogate. TECHNIQUE: Patient placed in supine position with left) bent at the elbow and placed over the head. Skin cleansed with betadine. 1mL of 1% lidocaine with 1:100,000 epi injected subQ along insertion site. Nexplanon felicia inserted under sterile technique. After insertion by the provider, the felicia was palpable under the skin by both patient and provider. Steristrips and sterile pressure dressing applied. AANDP: Nexplanon inserted without complications. The patient was instructed to remove the dressing after 24 hours. Advised to use backup contraception for 7 days. Wendy Bennett APRN.[facility] Tee Jamison MA 09/22/2024 2:40 PM Signed NEXPLANON PATIENT EDUCATION You may remove dressing in 24 hours. Expect some bruising around insertion site. You may take over the counter pain medication (i.e. Tylenol, motrin, advil, etc) if you have discomfort. Call your provider with excessive bruising or pain. Continue to use condoms for STD prevention. You should use backup contraception for 7 days to prevent . Referring Provider: WENDY BENNETT [[id number]] Allergies As of Date: 09/22/2024 (No Known Allergies) Date Reviewed: 09/22/2024 Reviewed by: Tee Jamison MA - Fully Assessed Reason for Visit: Nexplanon insertion [Other] Primary Visit Diagnosis:Insertion of implantable subdermal contraceptive [Z30.017] Order(s):[] etonogestrel subdermal implant 68 mg (NEXPLANON)Disp: Rfl: etonogestrel (NEXPLANON) subdermal implant 68 mg1 each by SUBDERMAL route as directed.Disp: 1 eachRfl: 0 UA DIP,URINE HCG (POC) [[id number]] Order #: [id number]. #:[id number] Prescriptions as of 09/22/2024 - etonogestrel (NEXPLANON) subdermal implant 68 mg 1 each by SUBDERMAL route as directed. - citalopram (CELEXA) 40 mg tablet Take 1 tablet by mouth once daily. - metFORMIN (GLUCOPHAGE) 500 mg tablet Take 1 tablet by mouth daily with breakfast for 7 days, THEN 1 tablet two times a day with meals. Problem List As Of Date 09/22/2024 Noted Resolved Well adolescent visit [Z00.129] 11/18/2010 Herpes simplex vulvovaginitis [A60.04] 08/30/2015 Anxiety with depression [F41.8] 05/29/2024 PCOS (polycystic ovarian syndrome) [E28.2] 05/29/2024 Class 2 obesity with body mass index (BMI) of 3*05/29/2024 VIVIANA (generalized anxiety disorder) [F41.1] 06/08/2024 Panic disorder [F41.0] 06/08/2024 Family history of polycystic kidney [Z82.71] 07/26/2024 Other instructions from your clinician: NEXPLANON PATIENT EDUCATION You may remove dressing in 24 hours. Expect some bruising around insertion site. You may take over the counter pain medication (i.e. Tylenol, motrin, advil, etc) if you have discomfort. Call your provider with excessive bruising or pain. Continue to use condoms for STD prevention. You should use backup contraception for 7 days to prevent . Prescriptions ordered this encounter Disp Refills Start End ETONOGESTREL 68 MG SUBDERMAL IMPLANT 09/22/2024 09/22/2024 Route: SDRM ETONOGESTREL 68 MG SUBDERMAL IMPLANT 1 ea* 0 09/22/2024 09/22/2027 Class: In Office Route: SDRM Si each by SUBDERMAL route as di (more content not included)... Normal [facility] UA DIP,URINE HCG (POC)on Beta HCG ( test) Ql (U) Negative Negative [facility] Comment on above: Location:[facility], [address] [facility], [place], [address] Combat Control Manager (POCT) Internal QC [place] [facility] Location:[facility], [address] [facility], [place], [address] [facility] POINT OF CARE [facility] CNOVon 08-31-2024 CNOV Office Visit (OBGYWM ) DICKERSONRUFINA ([id number]) 1995 F Date Time Provider Department 08/31/24 10:00 AM WENDY BENNETT OBGYWM During your visit today, we recorded the following information about you: Blood pressure Weight Last Period 124/80 92.5 kg 07/17/24 Wendy Bennett APRN.CNM 08/31/2024 12:46 PM Signed CONTRACEPTION Rufina Dickerson is a 29 year old No obstetric history on file. who presents today for contraception. Patient reported new Rx Mukesh started by PCP on 06/23/2024 reported LMP 07/17/2024 lasting 20 days. Patient's last menstrual period was 07/17/2024.. HPI: Dysmenorrhea Yes Heavy menses Yes Irregular menses Yes SUBJECTIVE Sexually active: Yes Smoking No Last PAP 03/19/2021 ASC-US with +HPV. Method of control: oral contraceptives Mukesh unsatisfactory. Methods tried previously: Depo - Provea, Sprintec Liked Depo other than weight gain Patient currently interested in: oral contraceptives Interested in in the next 3 years? No Date of last test: Not applicable Relevant Past Medical History: OB History No obstetric history on file. PAST MEDICAL HISTORY Diagnosis Date Anxiety Depression Insomnia PCOS (polycystic ovarian syndrome) PAST SURGICAL HISTORY Procedure Laterality Date CYST/MOLE REMOVAL gaglean FAMILY HISTORY Problem Relation Age of Onset other (iron deficient) Mother Kidney Disease Father No Known Problems Sister Hypothyroidism Sister Diabetes Maternal Grandmother SOCIAL HISTORY Social History Tobacco Use Smoking status: Never Smokeless tobacco: Never Vaping Use Vaping status: Never Used Substance Use Topics Alcohol use: Yes Comment: socially Drug use: Yes Types: Marijuana PAST SURGICAL HISTORY Procedure Laterality Date CYST/MOLE REMOVAL gaglean Current Outpatient Medications Medication Sig citalopram (CELEXA) 40 mg tablet Take 1 tablet by mouth once daily. Drospirenone-Ethinyl Estradiol (MUKESH, 28,) 3-0.02 mg per tablet Take 1 tablet by mouth once daily. clonazePAM (KLONOPIN) 0.5 mg tablet Take 1 tablet by mouth two times a day as needed for anxiety for up to 7 days. (Patient not taking: Reported on 06/10/2024) metFORMIN (GLUCOPHAGE) 500 mg tablet Take 1 tablet by mouth daily with breakfast for 7 days, THEN 1 tablet two times a day with meals. No current facility-administered medications for this visit. Allergies As of Date: 08/31/2024 (No Known Allergies) Fully Assessed 08/02/2024 SENSITIVE EXAM: Sensitive exam not performed. OBJECTIVE: General Appearance: Well appearing, alert, in no acute distress, well-hydrated, well nourished. ASSESSMENT/PLAN: 1. Irregular periods 2. Personal history of contraception -Reviewed R/B/A to OCP, Mirena, Nuva Ring, and Nexplanon -Partner has vasectomy -Desires contraception to help regulate periods due to PCOS - Desires placement of Nexplanon- order placed - Due to PAP- hx of abnormal and colposcopy with NO follow up Wendy Bennett APRN.CNM Allergies As of Date: 08/31/2024 (No Known Allergies) Date Reviewed: 08/31/2024 Reviewed by: Betty Molina LPN - Fully Assessed Reason for Visit: Contraception [26] Primary Visit Diagnosis:Irregular periods [N92.6] Other Visit Diagnosis:Personal history of contraception [Z92.0] Order(s):NEXPLANON INSERTION [[id number]] Order #: [id number] Prescriptions as of 08/31/2024 - citalopram (CELEXA) 40 mg tablet Take 1 tablet by mouth once daily. - Drospirenone-Ethinyl Estradiol (MUKESH, 28,) 3-0.02 mg per tablet Take 1 tablet by mouth once daily. - metFORMIN (GLUCOPHAGE) 500 mg tablet Take 1 tablet by mouth daily with breakfast for 7 days, THEN 1 tablet two times a day with meals. Problem List As Of Date 08/31/2024 Noted Resolved Well adolescent visit [Z00.129] 11/18/2010 Herpes simplex vulvovaginitis [A60.04] 08/30/2015 Anxiety with depression [F41.8] 05/29/2024 PCOS (polycystic ovarian syndrome) [E28.2] 05/29/2024 Class 2 obesity with body mass index (BMI) of 3*05/29/2024 VIVIANA (generalized anxiety disorder) [F41.1] 06/08/2024 Panic disorder [F41.0] 06/08/2024 Family history of polycystic kidney [Z82.71] 07/26/2024 Medications Discontinued During This Encounter Prescriptions - clonazePAM (KLONOPIN) 0.5 mg tablet (Discontinued) Reported on 06/10/2024 Disposition: Return if symptoms worsen or fail to improve. Follow-up and Disposition History for Encounter Date Provider Department Center 08/31/2024 [id number] BENNETT [facility] Encounter Status:Closed by WENDY BENNETT on 08/31/24 [facility] CNOVon 08-02-2024 CNOV Office Visit (UCWSTR ) RUFINA DICKERSON ([id number]) 1995 F Date Time Provider Department 08/02/24 6:45 PM LOC BECKETT UCWSTR During your visit today, we recorded the following information about you: Temperature Pulse Respiration Blood pressure 97.6 degrees 86/minute 18/minute 121/80 Weight Last Period 92.8 kg 07/17/24 Loc Beckett APRN.[facility] 08/02/2024 7:34 PM Signed [facility] Subjective Rufina Dickerson is a 29 year old female. Patient presents with: Vaginal Bleeding: X16 days, worse x3 days HPI Patient is a 29 year old female with a chronic history of PCOS that was put on mukesh control on June 10, she stopped her does last after talking to PCP who started her on the medication for a 5 day break and to start the pills tomorrow, she has been bleeding for 16 days but worsened when stopping her control pills. She does have a FORENSIC SCIENCE TECHNICIAN appointment but can't get established until august 31. NO fever, pelvic pain, she has felt tired and fatigued. She is sexually active, did take test when originally started that was negative. She is not soaking through pads in an hour, no dizziness or changes in vision. Review of Systems Constitutional: Negative for fatigue and fever. Genitourinary: Positive for menstrual problem and vaginal bleeding. Negative for dyspareunia, dysuria, flank pain, frequency, genital sores, pelvic pain, urgency, vaginal discharge and vaginal pain. Objective BP 121/80 Pulse 86 Temp 36.4 ?C (97.6 ?F) Resp 18 Wt 92.8 kg (204 lb 9.4 oz) LMP 07/17/2024 (Exact Date) SpO2 98% BMI 38.66 kg/m? PAST MEDICAL HISTORY Diagnosis Date Anxiety Depression Insomnia PCOS (polycystic ovarian syndrome) PAST SURGICAL HISTORY Procedure Laterality Date CYST/MOLE REMOVAL gaglean ALLERGIES Patient has no known allergies. MEDICATIONS metFORMIN (GLUCOPHAGE) 500 mg tablet Take 1 tablet by mouth daily with breakfast for 7 days, THEN 1 tablet two times a day with meals. citalopram (CELEXA) 20 mg tablet Take 0.5 tablets by mouth once daily for 7 days, THEN 1 tablet once daily. Drospirenone-Ethinyl Estradiol (MUKESH, 28,) 3-0.02 mg per tablet Take 1 tablet by mouth once daily. (Patient not taking: Reported on 08/02/2024) clonazePAM (KLONOPIN) 0.5 mg tablet Take 1 tablet by mouth two times a day as needed for anxiety for up to 7 days. (Patient not taking: Reported on 06/10/2024) FAMILY HISTORY Problem Relation Age of Onset other (iron deficient) Mother Kidney Disease Father No Known Problems Sister Hypothyroidism Sister Diabetes Maternal Grandmother Social History Tobacco Use Smoking status: Never Smokeless tobacco: Never Vaping Use Vaping status: Never Used Substance Use Topics Alcohol use: Yes Comment: socially Drug use: Yes Types: Marijuana Physical Exam Vitals reviewed. Constitutional: General: She is not in acute distress. Appearance: Normal appearance. She is not ill-appearing or toxic-appearing. Cardiovascular: Rate and Rhythm: Normal rate. Pulmonary: Effort: Pulmonary effort is normal. Breath sounds: Normal breath sounds. Abdominal: General: Abdomen is flat. Bowel sounds are normal. Tenderness: There is no abdominal tenderness. There is no right CVA tenderness, left CVA tenderness, guarding or rebound. Neurological: Mental Status: She is alert. {ASSESSMENT/PLAN: 1. Abnormal uterine bleeding - ICD9: 626.9, ICD10: N93.9 Discussed increased bleeding from the stop of birthcontrol pills for last 5 days, resume birthcontrol pills and follow up with FORENSIC SCIENCE TECHNICIAN scheduled appointment. Loc Beckett APRN.[facility] History and Record Review External record(s) reviewed: prior outpatient record. Findings from review of outpatient records: pcp plan of care for vaginal bleeding Differential Diagnoses - vaginal bleeding due to contraceptives is more likely for the following reason(s): suggested by HANDP Additional Tests or Interventions The following medication(s) were considered but not ordered: follow up with FORENSIC SCIENCE TECHNICIAN, discussed continue plan by pcp, not clinically indicated to change contraceptives at this time Disposition The patient was discharged. OTC Medications were advised: Tylenol and ibuprofen as needed. Patient is well appearing nontoxic in no acute distress. She presents with continued having vaginal bleeding from starting on mukesh control that is being medically managed by pcp. NO concerns for acute abdomen today of PID, pyelonephritis, sepsis, or acute dehydration. Patient has appointment on August 31, discussed Dr andrew snider accepting new patients and could be earlier appointment time (which is an [place] system) pt lived in [place]. This is after hours, at 7pm unable to call office. 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 ER if worsening (more content not included)... Normal [facility] CNOVon 07-15-2024 CNOV Office Visit (FPDOYL ) RUFINA DICKERSON ([id number]) 1995 F Date Time Provider Department 07/15/24 4:15 PM MORE GALARZA FPDOYL During your visit today, we recorded the following information about you: Pulse Blood pressure Weight 96/minute 100/80 91.6 kg More Galarza DO 07/26/2024 7:41 PM Signed [facility] Uvalde More DO [place] [address] [place] [address] Date of Evaluation: 07/15/2024 Patient Name: Rfuina Dickerson : 1995 Chief Complaint: Patient presents with: Anxiety: Follow up for medication Feeling a little better Contraception: Would like to discuss changing control She would prefer to not have a period Subjective Ms. Dickerson is a 29 year old female who presents with the following complaint(s): The history is provided by the patient. No mind reader was used. Anxiety Pertinent negatives include no weakness. This is a chronic problem. The problem has been gradually improving (patient states that she is smiling more brother has commented that she seems happier.) since onset. Treatments tried: citalopram. The treatment provided significant relief. Review of Systems Constitutional: Negative for fatigue and unexpected weight change. HENT: Negative for nosebleeds. Eyes: Negative for redness and visual disturbance. Respiratory: Negative for apnea, cough and shortness of breath. Cardiovascular: Negative for chest pain, palpitations and leg swelling. Genitourinary: Negative for hematuria. Neurological: Negative for dizziness, weakness, light-headedness, numbness and headaches. Hematological: Does not bruise/bleed easily. Psychiatric/Behaviora l: The patient is nervous/anxious. Denies feeling suicidal or any side effects with SSRI PAST MEDICAL HISTORY Diagnosis Date Anxiety Depression Insomnia PCOS (polycystic ovarian syndrome) PAST SURGICAL HISTORY Procedure Laterality Date CYST/MOLE REMOVAL gaglean FAMILY HISTORY Problem Relation Age of Onset other (iron deficient) Mother Kidney Disease Father No Known Problems Sister Hypothyroidism Sister Diabetes Maternal Grandmother Social History Tobacco Use Smoking status: Never Smokeless tobacco: Never Vaping Use Vaping status: Never Used Substance Use Topics Alcohol use: Yes Comment: socially Drug use: Yes Types: Marijuana Current Outpatient Medications Medication Sig Drospirenone-Ethinyl Estradiol (MUKESH, 28,) 3-0.02 mg per tablet Take 1 tablet by mouth once daily. metFORMIN (GLUCOPHAGE) 500 mg tablet Take 1 tablet by mouth daily with breakfast for 7 days, THEN 1 tablet two times a day with meals. citalopram (CELEXA) 20 mg tablet Take 0.5 tablets by mouth once daily for 7 days, THEN 1 tablet once daily. clonazePAM (KLONOPIN) 0.5 mg tablet Take 1 tablet by mouth two times a day as needed for anxiety for up to 7 days. (Patient not taking: Reported on 06/10/2024) No current facility-administered medications for this visit. I have confirmed and edited as necessary the past medical, family and social histories, HPI, and ROS obtained by others. Objective BP 100/80 Pulse 96 Wt 202 lb (91.6kg) SpO2 97% LMP 10/31/2015 Physical Exam Vitals and nursing note reviewed. Constitutional: General: She is not in acute distress. Appearance: Normal appearance. She is well-developed. She is obese. She is not ill-appearing. HENT: Head: Normocephalic. Nose: Nose normal. Mouth/Throat: Mouth: Mucous membranes are moist. Pharynx: Oropharynx is clear. Uvula midline. No oropharyngeal exudate or posterior oropharyngeal erythema. Eyes: General: Lids are normal. Vision grossly intact. Gaze aligned appropriately. No scleral icterus. Right eye: No discharge. Left eye: No discharge. Extraocular Movements: Extraocular movements intact. Conjunctiva/sclera: Conjunctivae normal. Pupils: Pupils are equal, round, and reactive to light. Neck: Thyroid: No thyroid mass, thyromegaly or thyroid tenderness. Vascular: No carotid bruit. Trachea: Trachea and phonation normal. Cardiovascular: Rate and Rhythm: Normal rate and regular rhythm. Pulses: Normal pulses. Heart sounds: Normal heart sounds. Pulmonary: Effort: Pulmonary effort is normal. Breath sounds: Normal breath sounds. Abdominal: General: Abdomen is flat. Bowel sounds are normal. Palpations: Abdomen is soft. Musculoskeletal: General: Normal range of motion. Right shoulder: Normal. Left shoulder: Normal. Cervical back: Normal, full passive range of motion without pain and neck supple. No tenderness. No spinous process tenderness. Thoracic back: Normal. Lumbar back: Normal. Right knee: Normal. Left knee: Normal. Right lower leg: No edema. Left lower leg: No edema. Ly (more content not included)... Normal [facility] B-HCG SerPl-aCncon 5 HCG.beta subunit Qn m[IU]/mL Normal <5.0 [facility] Comment on above: Order Comment: Speci men Type: BLOOD SPECIMENOrdering Facility: [facility] Address: [address] [place] [address] Result Comment: Musa cheney Performed By: #### 2 1198-7 ####[facility]ORATORYCLIA [id number] [place] [address] [place] CNOVon 06-10-2024 CNOV Office Visit (GAGANYL ) RUFINA DICKERSON ([id number]) 1995 F Date Time Provider Department 06/10/24 2:45 PM MORE GALARZA During your visit today, we recorded the following information about you: Temperature Pulse Blood pressure Weight 98.4 degrees 85/minute 112/84 91.2 kg Height 1.549 m More Galarza DO 06/20/2024 8:02 PM Signed [facility] Medicine [place] More Galarza DO [address] [place] [address] Date of Evaluation: 06/10/2024 Patient Name: Rufina Dickerson : 1995 Chief Complaint: Patient presents with: Anxiety: 1 week recheck. Patient states she stopped the clonazepam PCOS: Requesting control Results: Discuss recent labs Subjective Ms. Dickerson is a 29 year old female who presents with the following complaint(s): The history is provided by the patient. No mind reader was used. Anxiety Pertinent negatives include no weakness. This is a new problem. The current episode started more than 1 month ago. The problem has been gradually improving since onset. Treatments tried: Citalopram and Clonazepam. The treatment provided moderate (has stopped clonazepam, does not like the way it makes her feel- increased fatigue and sleepiness.) relief. Review of Systems Constitutional: Negative for fatigue and unexpected weight change. HENT: Negative for nosebleeds. Eyes: Negative for redness and visual disturbance. Respiratory: Negative for apnea, cough and shortness of breath. Cardiovascular: Negative for chest pain, palpitations and leg swelling. Genitourinary: Negative for hematuria. Neurological: Negative for dizziness, weakness, light-headedness, numbness and headaches. Hematological: Does not bruise/bleed easily. Psychiatric/Behaviora l: The patient is nervous/anxious. PAST MEDICAL HISTORY Diagnosis Date Anxiety Depression Insomnia PCOS (polycystic ovarian syndrome) PAST SURGICAL HISTORY Procedure Laterality Date CYST/MOLE REMOVAL gaglean FAMILY HISTORY Problem Relation Age of Onset other (iron deficient) Mother Kidney Disease Father No Known Problems Sister Hypothyroidism Sister Diabetes Maternal Grandmother Social History Tobacco Use Smoking status: Never Smokeless tobacco: Never Vaping Use Vaping status: Never Used Substance Use Topics Alcohol use: Yes Comment: socially Drug use: Yes Types: Marijuana Current Outpatient Medications Medication Sig metFORMIN (GLUCOPHAGE) 500 mg tablet Take 1 tablet by mouth daily with breakfast for 7 days, THEN 1 tablet two times a day with meals. citalopram (CELEXA) 20 mg tablet Take 0.5 tablets by mouth once daily for 7 days, THEN 1 tablet once daily. Drospirenone-Ethinyl Estradiol (MUKESH, 28,) 3-0.02 mg per tablet Take 1 tablet by mouth once daily. clonazePAM (KLONOPIN) 0.5 mg tablet Take 1 tablet by mouth two times a day as needed for anxiety for up to 7 days. (Patient not taking: Reported on 06/10/2024) No current facility-administered medications for this visit. I have confirmed and edited as necessary the past medical, family and social histories, HPI, and ROS obtained by others. Objective BP 112/84 Pulse 85 Temp 98.4 Ht 5' 1 (1.55m) Wt 201 lb (91.2kg) SpO2 96% LMP 10/31/2015 BMI 38.00 kg/(m2). Physical Exam Vitals and nursing note reviewed. Constitutional: General: She is not in acute distress. Appearance: Normal appearance. She is well-developed. She is obese. She is not ill-appearing. HENT: Head: Normocephalic. Nose: Nose normal. Mouth/Throat: Pharynx: Uvula midline. Eyes: General: Lids are normal. Vision grossly intact. Gaze aligned appropriately. Extraocular Movements: Extraocular movements intact. Conjunctiva/sclera: Conjunctivae normal. Pupils: Pupils are equal, round, and reactive to light. Neck: Thyroid: No thyroid mass, thyromegaly or thyroid tenderness. Trachea: Trachea and phonation normal. Cardiovascular: Rate and Rhythm: Normal rate and regular rhythm. Pulses: Normal pulses. Heart sounds: Normal heart sounds. Pulmonary: Effort: Pulmonary effort is normal. Breath sounds: Normal breath sounds. Musculoskeletal: General: Normal range of motion. Right shoulder: Normal. Left shoulder: Normal. Cervical back: Normal, full passive range of motion without pain and neck supple. No spinous process tenderness. Thoracic back: Normal. Lumbar back: Normal. Right knee: Normal. Left knee: Normal. Right lower leg: No edema. Left lower leg: No edema. Skin: General: Skin is warm and dry. Neurological: General: No focal deficit present. Mental Status: She is alert and oriented to person, place, and time. Mental status is at baseline. Sensory: Sensation is intact. Motor: Motor function is intact. (more content not included)... Normal [facility] HCG QUANTITATIVEon HCG.beta subunit Qn NINF [facility] Comment on above: Negative HCG.beta subunit Qnon 2024 Interpretation and review of laboratory results Normal [facility] Urinalysis complete panel (U )on 06-09-2024 Bacteria LM.HPF (Urine sed) [#/Area] Negative Normal Negative [facility] Comment on above: Order Comment: Speci men Type: URINE SPECIMENOrdering Facility: [facility] Address: [address] [place] [address] Performed By: #### 2 4356-8 ####[facility] LABCLIA [id number] [place] [address] [place] Bilirubin Ql (U) Negative Normal Negative [facility] Comment on above: Order Comment: Speci men Type: URINE SPECIMENOrdering Facility: [facility] Address: [address] [place] [address] Performed By: #### 2 4356-8 ####[facility] LABCLIA [id number] [place] [address] [place] Clarity (Unsp spec) Clear Normal Clear [facility] Comment on above: Order Comment: Speci men Type: URINE SPECIMENOrdering Facility: [facility] Address: [address] [place] [address] Performed By: #### 2 4356-8 ####[facility] LABCLIA [id number] [place] [id number] [place] Color (U) Yellow Normal Yellow [facility] Comment on above: Order Comment: Speci men Type: URINE SPECIMENOrdering Facility: [facility] Address: [address] [place] [address] Performed By: #### 2 4356-8 ####[facility] LABCLIA [id number] [place] [id number] [place] Epithelial cells LM.HPF (Urine sed) [#/Area] None Seen Normal [facility] Comment on above: Order Comment: Speci men Type: URINE SPECIMENOrdering Facility: [facility] Address: [address] [place] [address] Performed By: #### 2 4356-8 ####[facility] LABCLIA [id number] [address] [place] [address] [place] Glucose Test strip (U) [Mass/Vol] Negative Normal Negative [facility] Comment on above: Order Comment: Speci men Type: URINE SPECIMENOrdering Facility: [facility] Address: [address] [place] [address] Performed By: #### 2 4356-8 ####[facility] LABCLIA [id number] [address], [place] [address] [place] Hemoglobin Ql (U) Negative Normal Negative [facility] Comment on above: Order Comment: Speci men Type: URINE SPECIMENOrdering Facility: [facility] Address: [address] [place] [address] Performed By: #### 2 4356-8 ####[facility] LABCLIA [id number] [address], [place] [address] [place] Hyaline casts (Urine sed) [#/Area] 0 /[LPF] Normal 0 /LPF [facility] Comment on above: Order Comment: Speci men Type: URINE SPECIMENOrdering Facility: [facility] Address: [address] [place] [address] Performed By: #### 2 4356-8 ####[facility] LABCLIA [id number] [facility] [address], [facility]95 [place] Ketones Ql (U) Negative Normal Negative [facility] Comment on above: Order Comment: Speci men Type: URINE SPECIMENOrdering Facility: [facility] Address: [address] [place] [address] Performed By: #### 2 4356-8 ####[facility] LABCLIA [id number] [address] [place] [address] [place] Leukocyte esterase Test strip Ql (U) Negative Normal Negative [facility] Comment on above: Order Comment: Speci men Type: URINE SPECIMENOrdering Facility: [facility] Address: [address] [place] [address] Performed By: #### 2 4356-8 ####[facility] LABCLIA [id number] [address], [facility]95 [place] Nitrite Ql (U) Negative Normal Negative [facility] Comment on above: Order Comment: Speci men Type: URINE SPECIMENOrdering Facility: [facility] Address: [address] [place] [address] Performed By: #### 2 4356-8 ####[facility] LABCLIA [id number] [address], [facility]95 [place] pH (U) 6.0 [pH] Normal <8.5 [facility] Comment on above: Order Comment: Speci men Type: URINE SPECIMENOrdering Facility: [facility] Address: [address] [place] [address] Performed By: #### 2 4356-8 ####[facility] LABCLIA [id number] [address], [place] [address] [place] Protein (U) [Mass/Vol] Negative Normal Negative [facility] Comment on above: Order Comment: Speci men Type: URINE SPECIMENOrdering Facility: [facility] Address: [address] [place] [address] Performed By: #### 2 4356-8 ####[facility] LABCLIA [id number] [address], [facility]95 [place] RBC LM.HPF (Urine sed) [#/Area] 0-2 /HPF Normal 0-2 /HPF [facility] Comment on above: Order Comment: Speci men Type: URINE SPECIMENOrdering Facility: [facility] Address: [address] [place] [address] Performed By: #### 2 4356-8 ####[facility] LABIA [id number] [place] [address] [place] Specific gravity (U) [Rel density] 1.011 Normal 1.005-1.030 [facility] Comment on above: Order Comment: Speci men Type: URINE SPECIMENOrdering Facility: [facility] Address: [address] [place] [address] Performed By: #### 2 4356-8 ####[facility] LABIA [id number] [place] [address] [place] Urobilinogen Ql (U) 0.2 EU/dL Normal 0.2-1.0 EU/dL [facility] Comment on above: Order Comment: Speci men Type: URINE SPECIMENOrdering Facility: [facility] Address: [address] [place] [address] Performed By: #### 2 4356-8 ####[facility] LABIA [id number] [place] [address] [place] WBC LM.HPF (Urine sed) [#/Area] 0-5 /HPF Normal 0-5 /HPF [facility] Comment on above: Order Comment: Speci men Type: URINE SPECIMENOrdering Facility: [facility] Address: [address] [place] [address] Performed By: #### 2 4356-8 ####[facility] LABIA [id number] [place] [id number] [place] CBC W Auto Differential pane l (Bld)on 06-08-2024 Basophils (Bld) [#/Vol] 0.08 10*3/uL Normal <0.11 [facility] Comment on above: Order Comment: Speci men Type: BLOOD SPECIMENOrdering Facility: [facility] Address: [address] [place] [address] Performed By: #### 5 7021-8 ####[facility] LABORATORYCLIA [id number] [address] [place] Basophils/100 WBC (Bld) 0.7 % Normal [facility] Comment on above: Order Comment: Speci men Type: BLOOD SPECIMENOrdering Facility: [facility] Address: [address] [place] [address] Performed By: #### 5 7021-8 ####[facility]ORATORYCLIA [id number] [address] [place] Differential cell count method Nom (Bld) Auto Normal [facility] Comment on above: Order Comment: Speci men Type: BLOOD SPECIMENOrdering Facility: [facility] Address: [address] [place] [address] Performed By: #### 5 7021-8 ####[facility]ATORYCLIA [id number] [address] [place] Eosinophils (Bld) [#/Vol] 0.40 10*3/uL Normal <0.46 [facility] Comment on above: Order Comment: Speci men Type: BLOOD SPECIMENOrdering Facility: [facility] Address: [address] [place] [address] Performed By: #### 5 7021-8 ####[facility]ATORYCLIA [id number] [address] [place] Eosinophils/100 WBC (Bld) 3.7 % Normal [facility] Comment on above: Order Comment: Speci men Type: BLOOD SPECIMENOrdering Facility: [facility] Address: [address] [place] [address] Performed By: #### 5 7021-8 ####[facility]ATORYCLIA [id number] [address] [place] Erythrocyte distribution width (RBC) [Ratio] 14.2 % Normal 11.5-15.0 [facility] Comment on above: Order Comment: Speci men Type: BLOOD SPECIMENOrdering Facility: [facility] Address: [address] [place] [address] Performed By: #### 5 7021-8 ####[facility]ATORYCLIA [id number] [address] [place] Hematocrit (Bld) [Volume fraction] 39.9 % Normal 36.0-46.0 [facility] Comment on above: Order Comment: Speci men Type: BLOOD SPECIMENOrdering Facility: [facility] Address: [address] [place] [address] Performed By: #### 5 7021-8 ####[facility] LABORATORYCLIA [id number] [address] [place] Hemoglobin (Bld) [Mass/Vol] 12.7 g/dL Normal 11.5-15.5 [facility] Comment on above: Order Comment: Speci men Type: BLOOD SPECIMENOrdering Facility: [facility] Address: [address] [place] [address] Performed By: #### 5 7021-8 ####[facility] LABORATORYCLIA [id number] [address] [place] Immature granulocytes (Bld) [#/Vol] 0.03 10*3/uL Normal <0.10 [facility] Comment on above: Order Comment: Speci men Type: BLOOD SPECIMENOrdering Facility: [facility] Address: [address] [place] [address] Performed By: #### 5 7021-8 ####[facility] LABORATORYCLIA [id number] [address] [place] Immature granulocytes/100 WBC (Bld) 0.3 % Normal [facility] Comment on above: Order Comment: Speci men Type: BLOOD SPECIMENOrdering Facility: [facility] Address: [address] [place] [address] Performed By: #### 5 7021-8 ####[facility]ORATORYCLIA [id number] [place] [address] [place] Lymphocytes (Bld) [#/Vol] 4.38 10*3/uL High 1.00-4.00 [facility] Comment on above: Order Comment: Speci men Type: BLOOD SPECIMENOrdering Facility: [facility] Address: [address] [place] [address] Performed By: #### 5 7021-8 ####[facility]ORATORYCLIA [id number] [address] [place] Lymphocytes/100 WBC (Bld) 40.9 % Normal [facility] Comment on above: Order Comment: Speci men Type: BLOOD SPECIMENOrdering Facility: [facility] Address: [address] [place] [address] Performed By: #### 5 7021-8 ####[facility]ORATORYCLIA [id number] [address] [place] MCH (RBC) [Entitic mass] 26.8 pg Normal 26.0-34.0 [facility] Comment on above: Order Comment: Speci men Type: BLOOD SPECIMENOrdering Facility: [facility] Address: [address] [place] [address] Performed By: #### 5 7021-8 ####[facility]ORATORYCLIA [id number] [address] [place] MCHC (RBC) [Mass/Vol] 31.8 g/dL Normal 30.5-36.0 [facility] Comment on above: Order Comment: Speci men Type: BLOOD SPECIMENOrdering Facility: [facility] Address: [address] [place] [address] Performed By: #### 5 7021-8 ####[facility]ORATORYCLIA [id number] [address] [place] MCV (RBC) [Entitic vol] 84.4 fL Normal 80.0-100.0 [facility] Comment on above: Order Comment: Speci men Type: BLOOD SPECIMENOrdering Facility: [facility] Address: [address] [place] [address] Performed By: #### 5 7021-8 ####[facility]ORATORYCLIA [id number] [address] [place] Monocytes (Bld) [#/Vol] 0.85 10*3/uL Normal <0.87 [facility] Comment on above: Order Comment: Speci men Type: BLOOD SPECIMENOrdering Facility: [facility] Address: [address] [place] [address] Performed By: #### 5 7021-8 ####[facility]ORATORYCLIA [id number] [place] [address] [place] Monocytes/100 WBC (Bld) 7.9 % Normal [facility] Comment on above: Order Comment: Speci men Type: BLOOD SPECIMENOrdering Facility: [facility] Address: [address] [place] [address] Performed By: #### 5 7021-8 ####[facility] LABORATORYCLIA [id number] [place] [address] [place] Neutrophils (Bld) [#/Vol] 4.98 10*3/uL Normal 1.45-7.50 [facility] Comment on above: Order Comment: Speci men Type: BLOOD SPECIMENOrdering Facility: [facility] Address: [address] [place] [address] Performed By: #### 5 7021-8 ####[facility]ATORYCLIA [id number] [place] [address] [place] Neutrophils/100 WBC (Bld) 46.5 % Normal [facility] Comment on above: Order Comment: Speci men Type: BLOOD SPECIMENOrdering Facility: [facility] Address: [address] [place] [address] Performed By: #### 5 7021-8 ####[facility] LABORATORYCLIA [id number] [place] [address] [place] Nucleated RBC (Bld) [#/Vol] 10*3/uL Normal <0.01 [facility] Comment on above: Order Comment: Speci men Type: BLOOD SPECIMENOrdering Facility: [facility] Address: [address] [place] [address] Performed By: #### 5 7021-8 ####[facility]ATORYCLIA [id number] [place] [address] [place] Nucleated RBC/100 WBC (Bld) [Ratio] 0.0 /100 WBC Normal [facility] Comment on above: Order Comment: Speci men Type: BLOOD SPECIMENOrdering Facility: [facility] Address: [address] [place] [address] Performed By: #### 5 7021-8 ####[facility] LABORATORYCLIA [id number] [place] [address] [place] Platelet mean volume (Bld) [Entitic vol] 11.0 fL Normal 9.0-12.7 [facility] Comment on above: Order Comment: Speci men Type: BLOOD SPECIMENOrdering Facility: [facility] Address: [address] [place] [address] Performed By: #### 5 7021-8 ####LVL7 SystemsMON[facility] LABORATORYCLIA [id number] [place] [address] [place] Platelets (Bld) [#/Vol] 321 10*3/uL Normal 150-400 [facility] Comment on above: Order Comment: Speci men Type: BLOOD SPECIMENOrdering Facility: [facility] Address: [address] [place] [address] Performed By: #### 5 7021-8 ####[facility]ORATORYCLIA [id number] [place] [address] [place] RBC (Bld) [#/Vol] 4.73 10*6/uL Normal 3.90-5.20 [facility] Comment on above: Order Comment: Speci men Type: BLOOD SPECIMENOrdering Facility: [facility] Address: [address] [place] [address] Performed By: #### 5 7021-8 ####[facility]ATORYCLIA [id number] [place] [address] [place] WBC (Bld) [#/Vol] 10.72 10*3/uL Normal 3.70-11.00 [facility] Comment on above: Order Comment: Speci men Type: BLOOD SPECIMENOrdering Facility: [facility] Address: [address] [place] [address] Performed By: #### 5 7021-8 ####[facility] LABORATORYCLIA [id number] [place] [address] [place] [facility] Comprehensive metabolic 2000 panelon 06-08-2024 Albumin [Mass/Vol] 4.2 g/dL Normal 3.9-4.9 [facility] Comment on above: Order Comment: Speci men Type: BLOOD SPECIMENOrdering Facility: [facility] Address: [address] [place] [address] Performed By: #### 2 4323-8, 3016-3, 64156-5 ####[facility]ATORYCLIA [id number] [place] [address] [place] ALP [Catalytic activity/Vol] 81 U/L Normal 34-123 [facility] Comment on above: Order Comment: Speci men Type: BLOOD SPECIMENOrdering Facility: [facility] Address: [address] [place] [address] Performed By: #### 2 4323-8, 6-3, 38849-8 ####[facility]ORATORYCLIA [id number] [place] [address] [place] ALT With P-5'-P [Catalytic activity/Vol] 14 U/L Normal 7-38 [facility] Comment on above: Order Comment: Speci men Type: BLOOD SPECIMENOrdering Facility: [facility] Address: [address] [place] [address] Performed By: #### 2 4323-8, 6-3, 85997-3 ####[facility]ORATORYCLIA [id number] [place] [address] [place] Anion gap [Moles/Vol] 13 mmol/L Normal 8-15 [facility] Comment on above: Order Comment: Speci men Type: BLOOD SPECIMENOrdering Facility: [facility] Address: [address] [place] [address] Performed By: #### 2 4323-8, 6-3, 91603-2 ####[facility] LABORATORYCLIA [id number] [place] [address] [place] AST With P-5'-P [Catalytic activity/Vol] 23 U/L Normal 13-35 [facility] Comment on above: Order Comment: Speci men Type: BLOOD SPECIMENOrdering Facility: [facility] Address: [address] [place] [address] Performed By: #### 2 4323-8, 3016-3, 41855-4 ####[facility] LABORATORYCLIA [id number] [place] [address] [place] Bilirubin [Mass/Vol] 0.5 mg/dL Normal 0.2-1.3 [facility] Comment on above: Order Comment: Speci men Type: BLOOD SPECIMENOrdering Facility: [facility] Address: [address] [place] [address] Performed By: #### 2 4323-8, 6-3, 52702-9 ####[facility] LABORATORYCLIA [id number] [place] [address] [place] Calcium [Mass/Vol] 9.5 mg/dL Normal 8.5-10.2 [facility] Comment on above: Order Comment: Speci men Type: BLOOD SPECIMENOrdering Facility: [facility] Address: [address] [place] [address] Performed By: #### 2 4323-8, 6-3, 55474-6 ####[facility] LABORATORYCLIA [id number] [place] [address] [place] Chloride [Moles/Vol] 101 mmol/L Normal 98-107 [facility] Comment on above: Order Comment: Speci men Type: BLOOD SPECIMENOrdering Facility: [facility] Address: [address] [place] [address] Performed By: #### 2 4323-8, 3016-3, 37894-0 ####[facility] LABORATORYCLIA [id number] [place] [address] [place] CO2 [Moles/Vol] 25 mmol/L Normal 22-30 [facility] Comment on above: Order Comment: Speci men Type: BLOOD SPECIMENOrdering Facility: [facility] Address: [address] [place] [address] Performed By: #### 2 4323-8, 3016-3, 87412-8 ####NIC [facility] ERCLIA [id number] [place] [id number] [place] Creatinine [Mass/Vol] 0.79 mg/dL Normal 0.58-0.96 [facility] Comment on above: Order Comment: Speci men Type: BLOOD SPECIMENOrdering Facility: [facility] Address: [address] [place] [address] Performed By: #### 2 4323-8, 301-3, 63755-6 ####[facility] HOSPITALIA [id number] [address] [facility] Creatinine and Glomerular filtration rate.predicted panel (S/P/Bld) 104 mL/min/1.73m??? Normal >=60 [facility] Comment on above: Order Comment: Speci men Type: BLOOD SPECIMENOrdering Facility: [facility] Address: [address] [place] [address] Result Comment: Lavern mated Glomerular Filtration Rate (eGFR) is calculated using the 2020 CKD-EPI creatinine equation. This equation utilizes serum creatinine, sex, and age as parameters. The creatinine assay has traceable calibration to isotope dilution-mass spectrometry. Refer to KDIGO guidelines for clinical interpretation. In patients with unstable renal function, e.g. those with acute kidney injury, the eGFR may not accurately reflect actual GFR. Performed By: #### 2 4323-8, 6-3, 53194-2 ####[facility] LABORATORYCLIA [id number] [place] [id number] [place] Glucose [Mass/Vol] 78 mg/dL Normal 74-99 [facility] Comment on above: Order Comment: Mona men Type: BLOOD SPECIMENOrdering Facility: [facility] Address: [address] [place] [address] Result Comment: The [place] Diabetes Association (ADA) provides guidance for cutoff values for fasting glucose and random glucose. The ADA defines fasting as no caloric intake for at least 8 hours. Fasting plasma glucose results between 100 to 125 mg/dL indicate increased risk for diabetes (prediabetes). Fasting plasma glucose results greater than or equal to 126 mg/dL meet the criteria for diagnosis of diabetes. In the absence of unequivocal hyperglycemia, results should be confirmed by repeat testing. In a patient with classic symptoms of hyperglycemia or hyperglycemic crisis, random plasma glucose results greater than or equal to 200 mg/dL meet the criteria for diagnosis of diabetes. Reference: Standards of Medical Care in Diabetes 2016, [place] Diabetes Association. Diabetes Care. 2016.39(Suppl 1). Performed By: #### 2 4323-8, 6-3, 85160-7 ####LVL7 SystemsMON[facility]OM[facility] LABORATORYCLIA [id number] [place] [address] [place] Potassium [Moles/Vol] 4.7 mmol/L Normal 3.7-5.1 [facility] Comment on above: Order Comment: Speci men Type: BLOOD SPECIMENOrdering Facility: [facility] Address: [address] [place] [address] Performed By: #### 2 4323-8, 3, 84393-8 ####LVL7 SystemsCHARLESTON AREA MEDICAL CENTERCLIA [id number] [place] [address] [place] Protein [Mass/Vol] 7.4 g/dL Normal 6.3-8.0 [facility] Comment on above: Order Comment: Speci men Type: BLOOD SPECIMENOrdering Facility: [facility] Address: [address] [place] [address] Performed By: #### 2 4323-8, 3, 85899-0 ####[facility] LABORATORYCLIA [id number] [place] [address] [place] Sodium [Moles/Vol] 139 mmol/L Normal 136-144 [facility] Comment on above: Order Comment: Speci men Type: BLOOD SPECIMENOrdering Facility: [facility] Address: [address] [place] [address] Performed By: #### 2 4323-8, 3015-3, 54487-4 ####[email or web address] LABORATORYCLIA [id number] [place] [address] [place] Urea nitrogen [Mass/Vol] 11 mg/dL Normal 7-21 [facility] Comment on above: Order Comment: Speci men Type: BLOOD SPECIMENOrdering Facility: [facility] Address: [address] [place] [address] Performed By: #### 2 4323-8, 3016-3, 91948-1 ####[facility]ATORYCLIA [id number] [place] [address] [place] Lipid 1996 panelon 5 Cholesterol [Mass/Vol] 205 mg/dL High <200 [facility] Comment on above: Order Comment: Speci men Type: BLOOD SPECIMENOrdering Facility: [facility] Address: [address] [place] [address] Result Comment: <200 mg/dL, Desirable 200-239 mg/dL, Borderline high >239 mg/dL, High Performed By: #### 2 4323-8, 3016-3, 37550-3 ####[facility]ATORYCLIA [id number] [address] [place] Cholesterol in HDL [Mass/Vol] 68 mg/dL Normal >39 [facility] Comment on above: Order Comment: Speci men Type: BLOOD SPECIMENOrdering Facility: [facility] Address: [address] [place] [address] Result Comment: 40-5 9 mg/dL, Acceptable >59 mg/dL, High: Negative risk factor for coronary heart disease <40 mg/dL, Low: Positive risk factor for coronary heart disease Performed By: #### 2 4323-8, 3016-3, 50265-1 ####[facility]ATORYCLIA [id number] [place] [address] [place] Cholesterol in LDL [Mass/Vol] 120 mg/dL High <100 [facility] Comment on above: Order Comment: Speci men Type: BLOOD SPECIMENOrdering Facility: [facility] Address: [address] [place] [address] Result Comment: <100 mg/dL, Optimal 100-129 mg/dL, Near optimal/above optimal 130-159 mg/dL, Borderline high 160-189 mg/dL, High >189 mg/dL, Very high Secondary prevention optimal LDL Cholesterol levels are recommended to be < 70 mg/dL Performed By: #### 2 4323-8, 3016-3, 42886-9 ####LVL7 SystemsMON[facility]OM[facility] LABORATORYCLIA [id number] [place] [address] [place] Cholesterol in LDL/Cholesterol in HDL [Mass ratio] 1.76 {ratio} Normal <2.54 [facility] Comment on above: Order Comment: Speci men Type: BLOOD SPECIMENOrdering Facility: [facility] Address: [address] [place] [address] Result Comment: Santos albarran: 1. National Cholesterol Education Program ATP III Guideline At-A-Glance Quick Desk Reference: National Heart, Lung, and Blood [place]. National Institutes of Health. 2001: NIH Publication No. 01-3305. 2. An International Atherosclerosis Society position paper: global recommendations for the management of dyslipidemia: executive summary, Atherosclerosis. 2014: 232(2):410-413. Performed By: #### 2 4323-8, 6-3, 55575-0 ####LVL7 SystemsMONTGOM[facility] LABORATORYCLIA [id number] [place] [address] [place] Cholesterol in VLDL [Mass/Vol] 17 mg/dL Normal <30 [facility] Comment on above: Order Comment: Mona schafer Type: BLOOD SPECIMENOrdering Facility: [facility] Address: [address] [place] [address] Performed By: #### 2 4323-8, 6-3, 99085-1 ####[facility]ORATORYCLIA [id number] [place] [address] [place] Cholesterol non HDL [Mass/Vol] 137 mg/dL High <130 [facility] Comment on above: Order Comment: Mona schafer Type: BLOOD SPECIMENOrdering Facility: [facility] Address: [address] [place] [address] Result Comment: <130 mg/dL, Optimal 130-159 mg/dL, Near optimal/above optimal 160-189 mg/dL, Borderline high 190-219 mg/dL, High >219 mg/dL, Very high Secondary prevention optimal non HDL Cholesterol levels are recommended to be <100 mg/dL Performed By: #### 2 4323-8, 3016-3, 75475-9 ####[facility] LABORATORYCLIA [id number] [address] STATES [facility] Cholesterol.total/Cho lesterol in HDL [Mass ratio] 3.01 {ratio} Normal <5.10 [facility] Comment on above: Order Comment: Speci men Type: BLOOD SPECIMENOrdering Facility: [facility] Address: [address] [place] [address] Performed By: #### 2 4323-8, 3015-3, 22054-5 ####[facility] LABORATORYCLIA [id number] [address] FASTING TIME 12 hrs Normal [facility] Comment on above: Order Comment: Speci men Type: BLOOD SPECIMENOrdering Facility: [facility] Address: [address] [place] [address] Performed By: #### 2 4323-8, 6-3, 93698-1 ####[facility]ATORYCLIA [id number] [address] Triglyceride [Mass/Vol] 87 mg/dL Normal <150 [facility] Comment on above: Order Comment: Speci men Type: BLOOD SPECIMENOrdering Facility: [facility] Address: [address] [place] [address] Result Comment: <150 mg/dL, Normal 150-199 mg/dL, Borderline high 200-499 mg/dL, High >499 mg/dL, Very high Performed By: #### 2 4323-8, 6-3, 84018-4 ####[facility] LABORATORYCLIA [id number] [place] [address] [place] TSH SerPl-aCncon 06-08-2024 TSH Qn 1.590 m[IU]/L Normal 0.270-4.200 [facility] Comment on above: Order Comment: Speci men Type: BLOOD SPECIMENOrdering Facility: [facility] Address: [address], [place] [address] Result Comment: If t he patient is , TSH reference range varies by gestational period: First Trimester (weeks 9-12): 0.180-2.990 mIU/L Second Trimester: 0.110-3.980 mIU/L Third Trimester: 0.480-4.710 mIU/L Ciro Doshi et al. A Practical Approach for the Verifications and Determination of Site- and Trimester-Specific Reference Intervals for Thyroid Function tests in . Thyroid, 2019:29:3:412-420. Mu Goldstein, et al. 2017 Guidelines of the [place] Thyroid Association for the Diagnosis and Management of Thyroid Disease during and the . Thyroid, 2017:27:3:315-389. Performed By: #### 2 4323-8, 3016-3, 15638-0 ####[facility] LABORATORYCLIA [id number] [address] [facility] CNOVon 06-07-2024 CNOV Office Visit (WSTR ) DICKERSON,RUFINA Goel ([id number]) 1995 F Date Time Provider Department 06/07/24 6:00 PM ANUSHA GUILLORY [facility] During your visit today, we recorded the following information about you: Temperature Pulse Respiration Blood pressure 96.9 degrees 112/minute 16/minute 124/70 Weight 90.8 kg Anusha Guillory APRN.SLEEVE IRONER 06/07/2024 7:42 PM Signed This note was created using NoteWriter. Subjective Rufina Manasa Tuan is a 29 year old female. 29 year old female with PCOS and anxiety present for ankle pain Acute onset 06/04/24 Left ankle Endorses that her foot fell asleep, As she went to stand [place] it crack and twisted Denies head injury Denies LOC Denies neck or back pain Denies abdominal pain Denies N/V/D +swelling +pain with walking The history is provided by the patient. No mind reader was used. Musculoskeletal Problem This is a new problem. The current episode started in the past 7 days. The problem occurs constantly. The problem has been unchanged. Pertinent negatives include no abdominal pain, anorexia, arthralgias, change in bowel habit, chest pain, chills, congestion, coughing, diaphoresis, fatigue, fever, headaches, joint swelling, myalgias, nausea, neck pain, numbness, rash, sore throat, swollen glands, urinary symptoms, vertigo, visual change, vomiting or weakness. Exacerbated by: walking, touching , activity. She has tried nothing for the symptoms. The treatment provided no relief. PAST MEDICAL HISTORY Diagnosis Date Anxiety Depression Insomnia PCOS (polycystic ovarian syndrome) PAST SURGICAL HISTORY Procedure Laterality Date CYST/MOLE REMOVAL gaglean ALLERGIES Patient has no known allergies. MEDICATIONS clonazePAM (KLONOPIN) 0.5 mg tablet Take 1 tablet by mouth two times a day as needed for anxiety for up to 7 days. metFORMIN (GLUCOPHAGE) 500 mg tablet Take 1 tablet by mouth daily with breakfast for 7 days, THEN 1 tablet two times a day with meals. citalopram (CELEXA) 20 mg tablet Take 0.5 tablets by mouth once daily for 7 days, THEN 1 tablet once daily. FAMILY HISTORY Problem Relation Age of Onset other (iron deficient) Mother Kidney Disease Father No Known Problems Sister Hypothyroidism Sister Diabetes Maternal Grandmother Social History Tobacco Use Smoking status: Never Smokeless tobacco: Never Vaping Use Vaping status: Never Used Substance Use Topics Alcohol use: Yes Comment: socially Drug use: Yes Types: Marijuana Review of Systems Constitutional: Negative for chills, diaphoresis, fatigue and fever. HENT: Negative for congestion and sore throat. Respiratory: Negative for cough. Cardiovascular: Negative for chest pain. Gastrointestinal: Negative for abdominal pain, anorexia, change in bowel habit, nausea and vomiting. Musculoskeletal: Negative for arthralgias, joint swelling, myalgias and neck pain. Left ankle pain Skin: Negative for rash. Allergic/Immunologic: Negative for environmental allergies, food allergies and immunocompromised state. Neurological: Negative for vertigo, weakness, numbness and headaches. Hematological: Negative for adenopathy. Does not bruise/bleed easily. Psychiatric/Behaviora l: Negative for agitation and behavioral problems. Objective BP 124/70 Pulse 112 Temp 36.1 ?C (96.9 ?F) Resp 16 Wt 90.8 kg (200 lb 2.8 oz) LMP 10/31/2015 SpO2 97% BMI 33.31 kg/m? Physical Exam Vitals and nursing note reviewed. Constitutional: General: She is not in acute distress. Appearance: Normal appearance. She is normal weight. She is not ill-appearing, toxic-appearing or diaphoretic. HENT: Head: Normocephalic and atraumatic. Right Ear: Ear canal and external ear normal. Left Ear: Ear canal and external ear normal. Nose: Nose normal. No congestion or rhinorrhea. Mouth/Throat: Mouth: Mucous membranes are moist. Pharynx: No oropharyngeal exudate or posterior oropharyngeal erythema. Eyes: General: Right eye: No discharge. Left eye: No discharge. Extraocular Movements: Extraocular movements intact. Conjunctiva/sclera: Conjunctivae normal. Pupils: Pupils are equal, round, and reactive to light. Cardiovascular: Rate and Rhythm: Normal rate and regular rhythm. Pulses: Normal pulses. Heart sounds: Normal heart sounds. No murmur heard. No friction rub. Pulmonary: Effort: Pulmonary effort is normal. No respiratory distress. Breath sounds: Normal breath sounds. No stridor. No wheezing, rhonchi or rales. Chest: Chest wall: No tenderness. Abdominal: General: Abdomen is flat. There is no distension. Palpations: Abdomen is soft. There is no mass. Tenderness: There is no abdominal tenderness. There is no right CVA tenderness, left CVA tenderness, guarding or rebound. Hernia: No hernia is present. Musculoskeletal: General: Swelling, tenderness and signs (more content not included)... Normal [facility] XR ANKLE 3V AP/LAT/OBL LTon 06-07-2024 XR ANKLE 3V AP/LAT/OBL LT * * *Final Report* * * DATE OF EXAM: Jun 07 2024 6:32PM WOX [id number] - XR ANKLE 3V AP/LAT/OBL LT / PROCEDURE REASON: Acute left ankle pain * * * * Physician Interpretation * * * * EXAMINATION: XR ANKLE 3V AP/LAT/OBL LT CLINICAL HISTORY: Left ankle pain Technique: XR ANKLE 3V AP/LAT/OBL LT -- LEFT with 3 views on 3 images Comparison: None RESULT: There is no acute fracture or malalignment. There is no significant joint effusion. There is no radiopaque foreign body or soft tissue gas. IMPRESSION: No acute abnormality. Ethanol Quality Leader: PSCB Transcribe Date/Time: Jun 07 2024 7:29P Dictated by : KAILA BURRELL MD This examination was interpreted and the report reviewed and electronically signed by: KAILA BURRELL MD on Jun 07 2024 7:30PM EST [id number] Normal [facility] XR Ankle - left AP and Later al and obliqueon 06-07-2024 IMPRESSION: No acute abnormality. Ethanol Quality Leader: PSCB Transcribe Date/Time: Jun 07 2024 7:29P Dictated by : KAILA BURRELL MD This examination was interpreted and the report reviewed and electronically signed by: KAILA BURRELL MD on Jun 07 2024 7:30PM EST DIVISION OF RADIOLOGY * * *Final Report* * * DATE OF EXAM: Jun 07 2024 6:32PM WOX [id number] - XR ANKLE 3V AP/LAT/OBL LT / PROCEDURE REASON: Acute left ankle pain * * * * Physician Interpretation * * * * EXAMINATION: XR ANKLE 3V AP/LAT/OBL LT CLINICAL HISTORY: Left ankle pain Technique: XR ANKLE 3V AP/LAT/OBL LT -- LEFT with 3 views on 3 images Comparison: None RESULT: There is no acute fracture or malalignment. There is no significant joint effusion. There is no radiopaque foreign body or soft tissue gas. DIVISION OF RADIOLOGY Provider, [facility] - 06/07/2024 * * *Final Report* * * DATE OF EXAM: Jun 07 2024 6:32PM WOX [id number] - XR ANKLE 3V AP/LAT/OBL LT / PROCEDURE REASON: Acute left ankle pain * * * * Physician Interpretation * * * * EXAMINATION: XR ANKLE 3V AP/LAT/OBL LT CLINICAL HISTORY: Left ankle pain Technique: XR ANKLE 3V AP/LAT/OBL LT -- LEFT with 3 views on 3 images Comparison: None RESULT: There is no acute fracture or malalignment. There is no significant joint effusion. There is no radiopaque foreign body or soft tissue gas. IMPRESSION IMPRESSION: No acute abnormality. Ethanol Quality Leader: PSCB Transcribe Date/Time: Jun 07 2024 7:29P Dictated by : KAILA BURRELL MD This examination was interpreted and the report reviewed and electronically signed by: KAILA BURRELL MD on Jun 07 2024 7:30PM EST [facility] Radiology Study observation (narrative) [facility] XR Ankle - left AP and Later al and obliqueOrdered By: [facility]cf Provider on 06-07-2024 [facility] CNOVon 06-02-2024 CNOV Office Visit (FPDOYL ) DICKERSONRUFINA Goldstein ([id number]) 1995 F Date Time Provider Department 06/02/24 4:15 PM MORE GALARZA FPDOYL During your visit today, we recorded the following information about you: Pulse Blood pressure Weight Height 72/minute 90/60 90.7 kg 1.651 m More Galarza DO 06/08/2024 5:44 PM Signed [facility] Medicine [place] More Galarza DO [address] [place] [address] Date of Evaluation: 06/02/2024 Patient Name: Rufina Dickerson : 1995 Chief Complaint: Patient presents with: Panic attacks: Had one Thursday and Thursday - felt this way around 4 hours Chest Pain: Chest gets very tight and difficult to breathe Anxiety: Very fidgety Dizziness Subjective Ms. Dickerson is a 29 year old female who presents with the following complaint(s): The history is provided by the patient. Anxiety Primary symptoms comment: chest pain, sob, increased anxiety, dizziness , feeling of doom. This is a chronic problem. The problem has been gradually worsening (with new increased panic attacks) since onset. Review of Systems Constitutional: Negative for fatigue and unexpected weight change. HENT: Negative for nosebleeds. Eyes: Negative for redness and visual disturbance. Respiratory: Negative for apnea, cough and shortness of breath. Cardiovascular: Negative for chest pain, palpitations and leg swelling. Genitourinary: Negative for hematuria. Neurological: Negative for dizziness, light-headedness, numbness and headaches. Hematological: Does not bruise/bleed easily. Psychiatric/Behaviora l: The patient is not nervous/anxious. PAST MEDICAL HISTORY Diagnosis Date Anxiety Depression Insomnia PCOS (polycystic ovarian syndrome) PAST SURGICAL HISTORY Procedure Laterality Date CYST/MOLE REMOVAL gaglean FAMILY HISTORY Problem Relation Age of Onset other (iron deficient) Mother Kidney Disease Father No Known Problems Sister Hypothyroidism Sister Diabetes Maternal Grandmother Social History Tobacco Use Smoking status: Never Smokeless tobacco: Never Vaping Use Vaping status: Never Used Substance Use Topics Alcohol use: Yes Comment: socially Drug use: Yes Types: Marijuana Current Outpatient Medications Medication Sig metFORMIN (GLUCOPHAGE) 500 mg tablet Take 1 tablet by mouth daily with breakfast for 7 days, THEN 1 tablet two times a day with meals. citalopram (CELEXA) 20 mg tablet Take 0.5 tablets by mouth once daily for 7 days, THEN 1 tablet once daily. clonazePAM (KLONOPIN) 0.5 mg tablet Take 1 tablet by mouth two times a day as needed for anxiety for up to 7 days. No current facility-administered medications for this visit. I have confirmed and edited as necessary the past medical, family and social histories, HPI, and ROS obtained by others. Objective BP 90/60 Pulse 72 Ht 5' 5 (1.65m) Wt 200 lb (90.7kg) SpO2 96% LMP 10/31/2015 BMI 33.28 kg/(m2). Physical Exam Vitals and nursing note reviewed. Constitutional: General: She is not in acute distress. Appearance: Normal appearance. She is well-developed. She is obese. She is not ill-appearing. HENT: Head: Normocephalic. Nose: Nose normal. Mouth/Throat: Pharynx: Uvula midline. Eyes: General: Lids are normal. Vision grossly intact. Gaze aligned appropriately. Extraocular Movements: Extraocular movements intact. Conjunctiva/sclera: Conjunctivae normal. Pupils: Pupils are equal, round, and reactive to light. Neck: Thyroid: No thyroid mass, thyromegaly or thyroid tenderness. Trachea: Trachea and phonation normal. Cardiovascular: Rate and Rhythm: Regular rhythm. Pulses: Normal pulses. Heart sounds: Normal heart sounds. Pulmonary: Effort: Pulmonary effort is normal. Breath sounds: Normal breath sounds. Musculoskeletal: General: Normal range of motion. Right shoulder: Normal. Left shoulder: Normal. Cervical back: Normal, full passive range of motion without pain and neck supple. No spinous process tenderness. Thoracic back: Normal. Lumbar back: Normal. Right knee: Normal. Left knee: Normal. Right lower leg: No edema. Left lower leg: No edema. Skin: General: Skin is warm and dry. Neurological: General: No focal deficit present. Mental Status: She is alert and oriented to person, place, and time. Mental status is at baseline. Sensory: Sensation is intact. Motor: Motor function is intact. Psychiatric: Attention and Perception: Attention and perception normal. Mood and Affect: Mood is anxious. Speech: Speech normal. Behavior: Behavior normal. Thought Content: Thought content normal. Judgment: Judgment normal. Data Reviewed: No new labs Advised to get blood work previously ordered. ASSESSMENT/PLAN: 1. VIVIANA (gener (more content not included)... Normal [facility] CNOVon 05-26-2024 CNOV Office Visit (FPDOYL ) RUFINA DICKERSON ([id number]) 1995 F Date Time Provider Department 05/26/24 2:30 PM MORE GALARZA FPDOYL During your visit today, we recorded the following information about you: Temperature Pulse Blood pressure Weight 98.6 degrees 81/minute 120/84 90.7 kg Height 1.651 m More Galarza DO 05/29/2024 3:50 PM Signed [facility] Galarza DO [address] [place] [address] Date of Evaluation: 05/26/2024 Patient Name: Rufina Dickerson : 1995 Chief Complaint: Patient presents with: Establish Care Depression Sleep Problem PCOS Subjective Ms. Dickerson is a 29 year old female who presents with the following complaint(s): The history is provided by the patient. No mind reader was used. Depression Pertinent negatives include no weakness. This is a chronic problem. The current episode started more than 1 year ago. The problem is unchanged. Past treatments include nothing. Anxiety Pertinent negatives include no weakness. This is a chronic problem. The current episode started more than 1 year ago. The problem is unchanged. Past treatments include nothing. Review of Systems Constitutional: Negative for fatigue and unexpected weight change. HENT: Negative for nosebleeds. Eyes: Negative for redness and visual disturbance. Respiratory: Negative for apnea, cough and shortness of breath. Cardiovascular: Negative for chest pain, palpitations and leg swelling. Genitourinary: Negative for hematuria. Neurological: Negative for dizziness, weakness, light-headedness, numbness and headaches. Hematological: Does not bruise/bleed easily. Psychiatric/Behaviora l: Positive for depression, dysphoric mood and sleep disturbance. Suicidal ideas: has had thoughts in the past but never intentions or plans..The patient is nervous/anxious. PAST MEDICAL HISTORY Diagnosis Date Anxiety Depression Insomnia PCOS (polycystic ovarian syndrome) PAST SURGICAL HISTORY Procedure Laterality Date CYST/MOLE REMOVAL gaglean FAMILY HISTORY Problem Relation Age of Onset other (iron deficient) Mother Kidney Disease Father No Known Problems Sister Hypothyroidism Sister Diabetes Maternal Grandmother Social History Tobacco Use Smoking status: Never Smokeless tobacco: Never Vaping Use Vaping status: Never Used Substance Use Topics Alcohol use: Yes Comment: socially Drug use: Yes Types: Marijuana No current outpatient medications on file. No current facility-administered medications for this visit. I have confirmed and edited as necessary the past medical, family and social histories, HPI, and ROS obtained by others. Objective BP 120/84 Pulse 81 Temp 98.6 Ht 5' 5 (1.65m) Wt 200 lb (90.7kg) SpO2 98% LMP 10/31/2015 BMI 33.28 kg/(m2). Physical Exam Vitals and nursing note reviewed. Constitutional: General: She is not in acute distress. Appearance: Normal appearance. She is well-developed. She is obese. She is not ill-appearing. HENT: Head: Normocephalic. Nose: Nose normal. Mouth/Throat: Mouth: Mucous membranes are moist. Pharynx: Oropharynx is clear. Uvula midline. No oropharyngeal exudate or posterior oropharyngeal erythema. Eyes: General: Lids are normal. Vision grossly intact. Gaze aligned appropriately. No scleral icterus. Right eye: No discharge. Left eye: No discharge. Extraocular Movements: Extraocular movements intact. Conjunctiva/sclera: Conjunctivae normal. Pupils: Pupils are equal, round, and reactive to light. Neck: Thyroid: No thyroid mass, thyromegaly or thyroid tenderness. Vascular: No carotid bruit. Trachea: Trachea and phonation normal. Cardiovascular: Rate and Rhythm: Normal rate and regular rhythm. Pulses: Normal pulses. Heart sounds: Normal heart sounds. Pulmonary: Effort: Pulmonary effort is normal. Breath sounds: Normal breath sounds. Abdominal: General: Abdomen is flat. Bowel sounds are normal. Palpations: Abdomen is soft. Musculoskeletal: General: Normal range of motion. Right shoulder: Normal. Left shoulder: Normal. Cervical back: Normal, full passive range of motion without pain and neck supple. No tenderness. No spinous process tenderness. Thoracic back: Normal. Lumbar back: Normal. Right knee: Normal. Left knee: Normal. Right lower leg: No edema. Left lower leg: No edema. Lymphadenopathy: Cervical: No cervical adenopathy. Skin: General: Skin is warm and dry. Comments: Slight facial hair to face Neurological: General: No focal deficit present. Mental Status: She is alert and oriented to person, place, and time. Mental status is at baseline. Sensory: Sensation is intact. Motor: Motor function is intact. Psychi (more content not included)... Normal [facility] Office Visit Reporton 2023 Office Visit Report [facility] [address] [place] [address] OFFICE VISIT Date of Service: 02/03/24 MR#: [id number] Acct: [id number] Patient: RUFINA ASTUDILLO Rep #: [id number] : 1995 Provider: PETER Blancas Age/Sex: 29/F Location: [facility] Status: Signed Intake Vital Signs 01/17/24 13:44 Height 5 ft 5 in Weight: 195 lb BMI 32.4 BP 126/98 H Respiration 16 Pulse 99 Temp 99.1 F Temp Source Oral Pulse Oximetry (%) 99 Intake Visit Reasons: PRE EMP/NON DOT/DRUG/BAT SCREEN/SINDY BRUSH Allergies No Known Allergies Allergy (Verified 01/17/24 13:44) Office Procedures [facility] Billing Sheet Testing Breath Alcohol Test Pre-Employment: Yes Pre-Employment Drug Screen: Yes 02/08/24 0658 Date Kali GREEN Cosigner Signature: Date (if applicable) CC: Normal [facility] Urgent Care Visit Reporton 1 Urgent Care Visit Report [facility] [address], [address] [place] [address] OFFICE VISIT Date of Service: 02/03/24 MR#: [id number] Acct: [id number] Name: RUFINA ASTUDILLO Rep #: [id number] : 1995 Provider: PETER Blancas Age/Sex: 29/F Location: [facility] Status: Signed Intake Vital Signs 01/17/24 13:44 Height 5 ft 5 in Intake Visit Reasons: PRE EMP/NON DOT/PHYSICAL/SINDY BRUSH Allergies No Known Allergies Allergy (Verified 01/17/24 13:44) [facility] Medical History (Updated 02/03/24 @ 17:05 by Kali GREEN PA) Physical exam, pre-employment Depression PCOS (polycystic ovarian syndrome) Social History Smoking Status: Former smoker HPI HPI Details: RUFINA ASTUDILLO, is a 29 F who presents to the office today for Office Procedures Physical Exam Coding PE Coding Pre-employment PE: Yes Coding Level of Care Code No Charge Diagnoses Physical exam, pre-employment Z02.1 Assessment and Plan Assessment and Plan (1) Physical exam, pre-employment: Status: Acute 02/03/24 1733 Date Kali Esteban Signature: Date (if applicable) CC: Normal [facility] Emergency Department Summary on 01-17-2024 Emergency Department Summary [facility] Medical Records Department [address] [place] [address] Emergency Department Summary 01/17/24 MR#: [id number] Acct: [id number] Name: RUFINA ASTUDILLO Rep #: [id number] : 1995 29 From: Bruno Corrigan DO PCP: Care Physician,No Primary Status:DEP ER Location: ED HPI History of Present Illness Chief Complaint: Edema Narrative Narrative: Chief complaint and HPI: Right cheek swelling. 29-year-old female presents for evaluation of right cheek swelling. Patient states she woke up with it today. She endorses pain in the area of the swelling. She denies any fever, chills, URI symptoms, headache, neck pain, earache, dental pain, difficulty swallowing, abdominal pain, nausea, vomiting. She denies any trauma to the face. States this has never happened to her in the past. Review of systems: See HPI Medications: As listed on the chart Allergies: As listed on the chart PFSH: Per chart Vital signs: As listed on the chart. Reviewed. Physical exam: Gen: A O x3, NAD Head: Normocephalic, atraumatic Eyes: No sclera icterus, conjunctiva clear, PERRL, EOMI ENT: TMs clear BL, mild swelling of the right cheek externally, moist mucous membranes, posterior oropharynx unremarkable, uvula midline, tonsils not enlarged, no tonsillar exudates, multiple broken teeth and dental caries, patient's right lower wisdom tooth is breaking through the gingiva-there is stuck food in this area-has tenderness to palpation of this tooth/gingiva-states this recreates the pain she is feeling, piece of food was removed with mild gingivitis of the gum-no abscess or purulence, tolerating secretions, no oral swelling, no Steve angina, no tongue enlargement Neck: Trachea midline, No JVD, Full ROM, No meningismus CV: RRR, no murmurs, no peripheral edema Resp: Lungs CTA BL, no w/r/c Musc: Full ROM, no deformity Skin: Warm, dry, no rash Neuro: Alert, oriented, grossly intact, sensation intact Psych: Cooperative, appropriate mood and affect PFSH [facility] Medical History Depression PCOS (polycystic ovarian syndrome) Home Medications ???Medication ???Instructions ???Recorded ???Last Taken ???Type cephalexin 500 mg capsule 500 mg PO Q6 #20 caps 09/19/18 Unknown Rx norgestimate 0.25 mg-ethinyl 1 tab PO DAILY 09/19/18 09/19/18 History estradiol 35 mcg tablet (Sprintec (28)) amoxicillin 875 mg-potassium 1 tab PO Q12H 7 days #14 tabs 01/17/24 Unknown Rx clavulanate 125 mg tablet Allergy/AdvReac Type Severity Reaction Status Date / Time No Known Allergies Allergy Verified 01/17/24 13:44 Social History Smoking Status: Former smoker EXAM Physical Exam Const Vital Signs: 01/17/24 13:44 01/17/24 14:23 01/17/24 15:18 Temperature 99.1 F 99.1 F Temperature Source Oral Pulse Rate 99 99 Respiratory Rate 16 16 Respiratory Effort Normal Non-Labored Respiratory Pattern Normal Blood Pressure 126/98 H 126/98 H Blood Pressure Mean 107 107 Pulse Ox 99 99 Oxygen Delivery Method Room Air MDM MDM MDM Narrative Medical decision making narrative: 29-year-old female presents for evaluation of right cheek swelling. See physical exam findings. Differential diagnosis includes dental infection, dental abscess, dental carry. No dental abscess visualized on exam for I D. Concern is for dental infection. Patient was educated on ibuprofen and Tylenol as needed for pain. Will prescribe her with a 7-day course of Augmentin. She is to follow- up with her dentist or a dentist that was provided to her with the clinic list. She confirmed understanding. Return precautions explained. Impression: 1. Right lower molar dental infection 2. Multiple dental caries Discharge Plan Triage Chief Complaint: Edema ED Provider: Bruno Corrigan Dx/Rx/DC Orders Clinical Impression: Dental infection Instructions: Dental Abscess Prescriptions: New amoxicillin-pot clavulanate 875-125 mg tablet 1 tab PO Q12H 7 Days Qty: 14 0RF No Action norgestimate-ethinyl estradiol [Sprintec (28)] 1 TABLET tablet 1 tab PO DAILY Patient Comments: TAKE 1 TABLET BY MOUTH EVERY DAY cephalexin 500 MG capsule 500 mg PO Q6 Qty: 20 0RF Primary Care Provider: Care Physician,No Primary Referrals: Care Physician,No Primary [Primary Care Provider] - Activity Restrictions/Addition al Instructions: Follow-up with your dentist or one of the dental clinics that was provided to you. Take all of your antibiotics. Motrin and Tylenol as needed for pain. Return back if symptoms change or worsen. Print Language: Sierra Leonean Disposition Disposition: Home, Self Care Discharge Date/Time: 01/17/24 15:20 What to d (more content not included)... Normal [facility] COVID-19/INFLUENZA A,B MOLEC [facility] 03-05-2022 SARS-CoV-2 (COVID-19) Ab IA Ql SARS-COV-2 (TYRON): Not Detected INFLUENZA A (TYRON): Not Detected INFLUENZA B (TYRON): Not Detected Normal Not Detected [facility] Comment on above: Order Comment: This test was performed under the FDA's Emergency Use Authorization (EUA). Testing was performed using the Fany Annalisa SARS-CoV-2 RT-PCR AND Influenza A/B Nucleic Acid Test on the Annalisa Tyron System. This test has not been approved for use in asymptomatic patients and its performance in this patient population has not been evaluated. Negative results do not rule out the presence of SARS-CoV-2, influenza A, and/or influenza B. Fact sheets for the EUA can be found at the following links: For Healthcare Providers: https://www.fda.gov/media/407255/download For Patients: https://www.fda.gov/media/188705/download Performed By: #### L [id number] #### [place] [address] [place], [place] [address] Judi Vizcarra M.D. [id number] XR ANKLE RIGHT 3+ VIEWS (STA NDARD)on 06-12-2021 XR ANKLE RIGHT 3+ VIEWS (STANDARD) EXAMINATION: XR ANKLE RIGHT 3+ VIEWS (STANDARD) 06/12/2021 9:01 pm HISTORY: ORDERING SYSTEM PROVIDED HISTORY: injury, TECHNOLOGIST PROVIDED HISTORY: The patient is a 26-year-old female. Injury/Trauma Reason for exam: injury Cancer History: / Surgery, RadiationHistory: / Encounter Type: Initial Mechanism of injury: . ORDERING SYSTEM PROVIDED DIAGNOSIS CODES: COMPARISON: None. FINDINGS: I do not identify any acute or ununited fractures within or around the ankle joint. The ankle mortise is intact and uniform. The syndesmosis is maintained. There is lateral soft tissue swelling. IMPRESSION: No fracture seen. Workstation ID: [id number] Dictated by: COLLEEN LAUREN on ThuJun 12, 2021 9:10:29 PM EST Transcribed by: COLLEEN LAUREN on ThuJun 12, 2021 9:10:29 PM EST Finalized by: COLLEEN LAUREN on ThuJun 12, 2021 9:10:29 PM EST Normal [facility] Comment on above: Order Comment: Injur y/Trauma or Illness?:Injury/Trauma How long have you had these symptoms (acute/chronic)?:Acute Reason for exam?:injury History of cancer?:/ Surgeries, chemotherapy, or radiation?:/ Type of Exam?:Initial Mechanism of injury?:. COVID-19, MOLECULARon 2020 SARS-CoV-2 (COVID-19) RNA VICKY+probe Ql (Unsp spec) Not detected Normal Not Detected [facility] Comment on above: Result Comment: This test was performed under the FDA's Emergency Use Authorization (EUA). Testing was performed using the Annalisa SARS-CoV-2 RT-PCR assay on the Fany Annalisa 6800 System. This test has not been approved for use in asymptomatic patients and its performance in this patient population has not been evaluated. Negative results do not rule out the presence of SARS-CoV-2/COVID-19. Fact sheets for this EUA can be found at the following links: For Healthcare Providers: https://www.fda.gov/media/212222/download For Patients: https://www.fda.gov/media/290224/download Performed By: #### L [id number] #### [facility] [address] [place] [address] Cristian Ghotra M.D. [id number] COVID-19, MolecularOrdered B y: Leandro King on 12-10-2020 SARS-CoV-2 (COVID-19) RNA VICKY+probe Ql (Resp) Not detected Not Detected [facility] Comment on above: This test was perfor med under the FDA's Emergency Use Authorization (EUA). Testing was performed using the Annalisa SARS-CoV-2 RT-PCR assay on the Fany Annalisa 6800 System. This test has not been approved for use in asymptomatic patients and its performance in this patient population has not been evaluated. Negative results do not rule out the presence of SARS-CoV-2/COVID-19. Fact sheets for this EUA can be found at the following links: For Healthcare Providers: https://www.fda.gov/media/550009/download For Patients: https://www.fda.gov/media/669088/download SARS-CoV-2 (COVID-19) RNA NA A+probe Ql (Resp)Ordered By: Leandro King on 12-10-2020 Interpretation and review of laboratory results Normal [facility] XR WRIST RIGHT 2 VIEWSon XR WRIST RIGHT 2 VIEWS X-rays 2 views of Right wrist (PA, lateral) were obtained and independently reviewed. Impression: Well-preserved joint spaces, negative for acute osseous abnormality. Dictated by: KELECHI POLANCO on ThuNov 21, 2020 9:00:00 AM EDT Transcribed by: KELECHI POLANCO on ThuNov 21, 2020 9:00:00 AM EDT Finalized by: KELECHI POLANCO on ThuNov 21, 2020 9:00:00 AM EDT Normal [facility] Comment on above: Order Comment: Injur y/Trauma or Illness?:Illness/Other How long have you had these symptoms (acute/chronic)?:Unknown Reason for exam?:/ History of cancer?:/ Surgeries, chemotherapy, or radiation?:/ Type of Exam?:Initial Additional signs and symptoms?:/ CBC panel Auto (Bld)Ordered By: Lele Al on 11-06-2020 Erythrocyte distribution width (RBC) [Entitic vol] 13.5 % 11.6 - 14.8 % [facility] Hematocrit (Bld) [Volume fraction] 39.9 % 36.0 - 46.0 % [facility] Hemoglobin (Bld) [Mass/Vol] 12.7 g/dL 12.0 - 16.0 g/dL [facility] MCH (RBC) [Entitic mass] 28.0 pg 26.0 - 34.0 pg [facility] MCHC (RBC) [Mass/Vol] 31.8 g/dL 31.0 - 37.0 g/dL [facility] MCV (RBC) [Entitic vol] 87.9 fL 80.0 - 100.0 fL [facility] Nucleated RBC (Bld) [#/Vol] 0.00 10*3/uL [facility] Nucleated RBC/100 WBC (Bld) [Ratio] 0.0 % [facility] Platelet mean volume (Bld) [Entitic vol] 10.8 fL 9.4 - 12.4 fL [facility] Platelets (Bld) [#/Vol] 269 10*3/uL [facility] RBC (Bld) [#/Vol] 4.54 10*6/uL [facility] WBC (Bld) [#/Vol] 8.65 10*3/uL [facility] POC Bacterial VaginosisOrder ed By: Jesenia Moy on 09-29-2020 Bacterial Vaginosis Positive Abnormal Negative [facility] Interpretation and review of laboratory results Abnormal [facility] PROLACTINon 08-25-2019 PROLACTIN 17.1 ng/mL Normal [facility] Comment on above: Result Comment: Unab le to flag abnormal result(s), please refer to reference range(s) below: Reference range(s): Adult Males: 2.0 - 18.0 ng/mL Adult Females: - Non-: 3.0 - 30.0 ng/mL - : 10.0 - 209.0 ng/mL - Post-Menopausal: 2.0 - 20.0 ng/mL Test Performed by [facility], [place], [address] [place], [place] Cisco Bush M.D., Ph.D., Director of Laboratories , CLIA [id number] TESTOSTERONE FREEon 08-25-19 20 Testosterone [Mass/Vol] 69 ng/dL Abnormal 2-45 [facility] Comment on above: Result Comment: For additional information, please refer to http://education.Deal Co-op/faq/ UbgxwVqvzyrhlmqlfHTWMRSGXY111 (This link is being provided for informational/ educational purposes only.) This test was developed and its analytical performance characteristics have been determined by [employer] [place], [place]. It has not been cleared or approved by the U.S. Food and Drug Administration. This assay has been validated pursuant to the CLIA regulations and is used for clinical purposes. TESTOSTERONE FREE 12.5 pg/mL Abnormal 0.1-6.4 [facility] Comment on above: Result Comment: This test was developed and its analytical performance characteristics have been determined by [employer] [place], [place]. It has not been cleared or approved by the U.S. Food and Drug Administration. This assay has been validated pursuant to the CLIA regulations and is used for clinical purposes. Test Performed by [facility], [address] [place], [place] Cisco Bush M.D., Ph.D., Director of Laboratories , CLIA [id number] COMPREHENSIVE METABOLIC PANE Maximino 08-22-2019 Albumin [Mass/Vol] 4.6 g/dL High 3.0-4.5 [facility] Comment on above: Performed By: #### C VARGHESE ROSS #### MAIN [facility] CLIA:[id number] [address] [place] [address] Albumin/Globulin [Mass ratio] 1.5 {ratio} High 1-1.4 [facility] Comment on above: Performed By: #### C MP, VASR #### [facility] CLIA:[id number] [address] [place] [address], [place] [address] ALP [Catalytic activity/Vol] 78 U/L Normal 35-104 [facility] Comment on above: Performed By: #### C VANDANA, VASR #### [facility] CLIA:[id number] [address] [place] [address], [place] [address] ALT [Catalytic activity/Vol] 15 U/L Normal 0-33 [facility] Comment on above: Performed By: #### C VANDANA, VASR #### [facility] CLIA:[id number] [address] [place] [address], [place] [address] Anion gap [Moles/Vol] 16 mmol/L Normal 9-18 [facility] Comment on above: Performed By: #### C VANDANA, VASR #### MAIN [facility] CLIA:[id number] [address] [place] [address], [place] [address] AST [Catalytic activity/Vol] 20 U/L Normal 0-32 [facility] Comment on above: Performed By: #### C VANDANA, VASR #### MAIN [facility] CLIA:[id number] [address] [place] [address], [place] [address] Bilirubin [Mass/Vol] 0.3 mg/dL Normal 0.2-1.2 [facility] Comment on above: Performed By: #### C VANDANA, VASR #### MAIN [facility] CLIA:[id number] [address] [place] [address], [place] [address] Calcium [Mass/Vol] 9.9 mg/dL Normal 8.6-10.0 [facility] Comment on above: Performed By: #### C VANDANA, VASR #### MAIN LAB CLIA:[id number] [address] [place] [address], [place] [address] Chloride [Moles/Vol] 99 mmol/L Normal 98-107 [facility] Comment on above: Performed By: #### C VANDANA, VASR #### MAIN [facility] CLIA:[id number] [address] [place] [address], [place] [address] CO2 [Moles/Vol] 27 mmol/L Normal 22-29 [facility] Comment on above: Performed By: #### Russ ROSS, VASR #### MAIN LAB CLIA:[id number] [address] [place] [address] Creatinine [Mass/Vol] 0.59 mg/dL Normal 0.50-0.90 [facility] Comment on above: Performed By: #### C VANDANA, VASR #### MA[facility] CLIA:[id number] [address] [place] [address] GFR/1.73 sq M.predicted MDRD (S/P/Bld) [Vol rate/Area] mL/min/{1.73_m2} Normal >60 mL/min [facility] Comment on above: Result Comment: eGFR is calculated using the CKD-EPI equation. Result is intended only for patients between 18 and 71 years of age and is corrected for age, race, and gender. eGFR should NOT be used for pharmacy dosing. Performed By: #### C VANDANA, VASR #### [facility] CLIA:[id number] [address] [place] [address] Globulin (S) [Mass/Vol] 3.0 g/dL Normal 2.3-3.5 [facility] Comment on above: Performed By: #### Russ ROSS, VASR #### [facility] CLIA:[id number] [address] [place] [address] Glucose [Mass/Vol] 83 mg/dL Normal 74-109 [facility] Comment on above: Performed By: #### Russ ROSS, VASR #### MA[facility] CLIA:[id number] [address] [place] [address] Potassium [Moles/Vol] 3.9 mmol/L Normal 3.5-5.1 [facility] Comment on above: Performed By: #### Russ ROSS, VASR #### MA[facility] CLIA:[id number] [address] [place] [address] Protein [Mass/Vol] 7.6 g/dL Normal 6.4-8.3 [facility] Comment on above: Performed By: #### Russ ROSS, VASR #### MAIN [facility] CLIA:[id number] [address] [place] [address] Sodium [Moles/Vol] 138 mmol/L Normal 136-145 [facility] Comment on above: Performed By: #### C VANDANA VASR #### MAIN LAB CLIA:[id number] [address] [place] [address] 48387 Urea nitrogen [Mass/Vol] 10 mg/dL Normal 6-20 [facility] Comment on above: Performed By: #### C VANDANA, VASR #### MAIN LAB CLIA:[id number] [address] [place] [address] 77256 Urea nitrogen/Creatinine [Mass ratio] 16.9 mg/mg Normal [facility] Comment on above: Performed By: #### C VANDANA VASR #### MAIN LAB CLIA:[id number] [address] [place] [address] 56838 THYROID STIMULATING HORMONEo n 08-22-2019 TSH Qn 2.11 uIU/mL Normal 0.27-4.20 [facility] Comment on above: Performed By: #### T SH #### MAIN LAB CLIA:[id number] [address] [place] [address] 52395 VASCULAR RISK PANELon 2019 Cholesterol [Mass/Vol] 223 mg/dL High 0-199 [facility] Comment on above: Performed By: #### C VANDANA VASR #### MAIN LAB CLIA:[id number] [address] [place] [address] 85825 Cholesterol in HDL [Mass/Vol] 86 mg/dL Normal >65 [facility] Comment on above: Performed By: #### C VANDANA VASR #### MAIN LAB CLIA:[id number] [address] [place] [address] 34951 Cholesterol in LDL [Mass/Vol] 125 mg/dL Normal <129 [facility] Comment on above: Performed By: #### C VANDANA VASR #### MAIN LAB CLIA:[id number] [address] [place] [address] 89790 Triglyceride [Mass/Vol] 60 mg/dL Normal 0-199 [facility] Comment on above: Performed By: #### C VANDANA VASR #### MAIN LAB CLIA:[id number] [address] [place] [address] 30419 VLDL CHOLESTEROL 12 mg/dL Normal 5-40 [facility] Comment on above: Performed By: #### C VARGHESE ROSS #### MAIN LAB CLIA:[id number] [address] [place] [address] 38547 COMPLETE BLOOD COUNTon 05-29 ABSOLUTE SEGS 4000 /cmm Normal 5949-0633 [facility] Comment on above: Performed By: #### C BC #### MAIN LAB CLIA:[id number] [address] [place] [address] 27972 Basophils (Bld) [#/Vol] 100 /cmm Normal <216 [facility] Comment on above: Performed By: #### C BC #### MAIN LAB CLIA:[id number] [address] [place] [address] 03790 Basophils/100 WBC (Bld) 0.6 % Normal <2.0 [facility] Comment on above: Performed By: #### C BC #### MAIN LAB CLIA:[id number] [address] [place] [address] 26887 Eosinophils (Bld) [#/Vol] 300 /cmm Normal <432 [facility] Comment on above: Performed By: #### C BC #### MAIN LAB CLIA:[id number] [address] [place] [address] 95617 Eosinophils/100 WBC (Bld) 3.0 % Normal <4.0 [facility] Comment on above: Performed By: #### C BC #### MAIN LAB CLIA:[id number] [address] [place] [address] 09859 Erythrocyte distribution width (RBC) [Ratio] 14.1 % Normal 11.5-14.5 [facility] Comment on above: Performed By: #### C BC #### MAIN LAB CLIA:[id number] [address] [place] [address] 33939 Hematocrit (Bld) [Volume fraction] 47.4 % High 38.0-47.0 [facility] Comment on above: Performed By: #### C BC #### MAIN LAB CLIA:[id number] [address] [place] [address] 54919 Hemoglobin (Bld) [Mass/Vol] 15.3 g/dL Normal 12.0-16.4 [facility] Comment on above: Performed By: #### C BC #### MAIN LAB CLIA:[id number] [address] [place] [address] 81031 Lymphocytes (Bld) [#/Vol] 3700 /cmm Normal [facility] Comment on above: Performed By: #### C BC #### MAIN LAB CLIA:[id number] [address] [place] [address] 70428 Lymphocytes/100 WBC (Bld) 42.6 % Normal 20.0-44.0 [facility] Comment on above: Performed By: #### C BC #### MAIN LAB CLIA:[id number] [address] [place] [address] 44086 MCH (RBC) [Entitic mass] 27.9 pg Normal 27.0-31.0 [facility] Comment on above: Performed By: #### C BC #### MAIN LAB CLIA:[id number] [address] [place] [address] 34038 MCH (RBC) [Entitic mass] 32.2 g/dL Normal 32.0-36.0 [facility] Comment on above: Performed By: #### C BC #### MAIN LAB CLIA:[id number] [address] [place] [address] 11341 MCV (RBC) [Entitic vol] 87 fL Normal 80.0-96.0 [facility] Comment on above: Performed By: #### C BC #### MAIN LAB CLIA:[id number] [address] [place] [address] 67239 Monocytes (Bld) [#/Vol] 700 /cmm Normal 96-972 [facility] Comment on above: Performed By: #### C BC #### MAIN LAB CLIA:[id number] [address] [place] [address] 52651 Monocytes/100 WBC (Bld) 8.0 % Normal 2.0-9.0 [facility] Comment on above: Performed By: #### C BC #### MAIN LAB CLIA:[id number] [address] [place] [address] 99215 Neutrophils/100 WBC (Bld) 45.8 % Low 50.0-70.0 [facility] Comment on above: Performed By: #### C BC #### MAIN LAB CLIA:[id number] [address] [place] [address] 21113 Platelets (Bld) [#/Vol] 302 10 3/uL Normal 130-400 [facility] Comment on above: Performed By: #### C BC #### MAIN LAB CLIA:[id number] [address] [place] [address] 85066 RBC (Bld) [#/Vol] 5.46 10 6/cmm High 4.20-5.40 [facility] Comment on above: Performed By: #### C BC #### MAIN LAB CLIA:[id number] [address] [place] [address] 23599 WBC (Bld) [#/Vol] 8.6 10 3/uL Normal 4.8-10.8 [facility] Comment on above: Performed By: #### C BC #### MAIN LAB CLIA:[id number] [address] [place] [address] [address] [facility] 05-29-2019 Albumin [Mass/Vol] 4.9 g/dL High 3.0-4.5 [facility] Comment on above: Performed By: #### C MP #### MAIN LAB CLIA:[id number] [address] [place] [address] 89193 Albumin/Globulin [Mass ratio] 1.4 {ratio} Normal 1-1.4 [facility] Comment on above: Performed By: #### C MP #### MAIN LAB CLIA:[id number] [address] [place] [address] 82125 ALP [Catalytic activity/Vol] 82 U/L Normal 35-104 [facility] Comment on above: Performed By: #### C MP #### MAIN LAB CLIA:[id number] [address] [place] [address] 20896 ALT [Catalytic activity/Vol] 23 U/L Normal 0-33 [facility] Comment on above: Performed By: #### C MP #### MAIN LAB CLIA:[id number] [address] [place] [address] [place] [address] Anion gap [Moles/Vol] 19 mmol/L High 9-18 [facility] Comment on above: Performed By: #### C MP #### MAIN LAB CLIA:[id number] [address] [place] [address] 00444 AST [Catalytic activity/Vol] 26 U/L Normal 0-32 [facility] Comment on above: Performed By: #### C MP #### MAIN LAB CLIA:[id number] [address] [place] [address] 35461 Bilirubin [Mass/Vol] 0.5 mg/dL Normal 0.2-1.2 [facility] Comment on above: Performed By: #### C MP #### MAIN LAB CLIA:[id number] [address] [place] [address] 44285 Calcium [Mass/Vol] 10.4 mg/dL High 8.6-10.0 [facility] Comment on above: Performed By: #### C MP #### MAIN LAB CLIA:[id number] [address] [place] [address] 03495 Chloride [Moles/Vol] 99 mmol/L Normal 98-107 [facility] Comment on above: Performed By: #### C MP #### MAIN LAB CLIA:[id number] [address] [place] [address] 47081 CO2 [Moles/Vol] 23 mmol/L Normal 22-29 [facility] Comment on above: Performed By: #### C MP #### MAIN LAB CLIA:[id number] [address] [place] [address] 07965 Creatinine [Mass/Vol] 0.57 mg/dL Normal 0.50-0.90 [facility] Comment on above: Performed By: #### C MP #### MAIN LAB CLIA:[id number] [address] [place] [address] 05927 GFR/1.73 sq M.predicted MDRD (S/P/Bld) [Vol rate/Area] 139 /1.73 m2 Normal >60 mL/min [facility] Comment on above: Result Comment: Norm al Range Stage Description: 1 Normal or Increased GFR >=90 2 Mild Decrease in GFR 60-90 3 Moderately Decreased GFR 30-59 4 Severely Decreased GFR 15-29 5 Kidney Failure <15 Performed By: #### C MP #### MAIN LAB CLIA:[id number] [address] [place] [address] 88040 Globulin (S) [Mass/Vol] 3.6 g/dL High 2.3-3.5 [facility] Comment on above: Performed By: #### C MP #### MAIN LAB CLIA:[id number] [address] [place] [address] 73963 Glucose [Mass/Vol] 83 mg/dL Normal 74-109 [facility] Comment on above: Performed By: #### C MP #### MAIN LAB CLIA:[id number] [address] [place] [address] 59483 Potassium [Moles/Vol] 4.3 mmol/L Normal 3.5-5.1 [facility] Comment on above: Performed By: #### C MP #### MAIN LAB CLIA:[id number] [address] [place] [address] 97433 Protein [Mass/Vol] 8.5 g/dL High 6.4-8.3 [facility] Comment on above: Performed By: #### C MP #### MAIN LAB CLIA:[id number] [address] [place] [address] 92293 Sodium [Moles/Vol] 137 mmol/L Normal 136-145 [facility] Comment on above: Performed By: #### C MP #### MAIN LAB CLIA:[id number] [address] [place] [address] 10751 Urea nitrogen [Mass/Vol] 11 mg/dL Normal 6-20 [facility] Comment on above: Performed By: #### C MP #### MAIN LAB CLIA:[id number] [address] [place] [address] 40751 Urea nitrogen/Creatinine [Mass ratio] 19.3 mg/mg Normal [facility] Comment on above: Performed By: #### C MP #### MAIN LAB CLIA:[id number] [address] [place] [address] Emergency Room Visit Reporto n 05-29-2019 [place] [address] - RUFINA DICKERSON JERRI 1995 (24 F) [id number] Jacky Finch MD ED Report #: [id number] (Signed) PCP: No Doctor Emergency Room Visit Report Visit Date: 05/29/19 Report Date/Time: 05/29/19 1219 Dizziness (EDM) Arrival Condition on Arrival: Good GAB Level: 3 Information Source: patient and significant other ( boyfriend) Mode of Arrival: vehicle Limitations: no limitations Lives With: Significant Other Support System: Significant Other Travel Screening Traveled Out Of Country In Last 30 Days: No (Or) Been in Contact With Ill Person Who Has Traveled: No (If Yes) Was Travel to [place] or an Ebola Affected Area: No Are Symptoms Present: No History of Present Illness Complaint: dizziness Other Description of Symptoms: Patient has been having dizziness since thursday. She left work x2 days last week for this. She reports she gets dizzy at work around 9-10am. She usually eats breakfast. She denies any falls or injury. She has reciently stopped taking control in due to running out. Date of Onset (approx): 05/24/19 Time of Onset (approx): 08:00 Timing: sudden onset Improves With: nothing Provider HPI Details Please note that a [employer] system is utilized in the completion of this document, and this may result in errors and/or erroneous omissions/additons during the dictation process. History as per nursing. 24-year-old female previously well who notes the onset about 3-4 days ago of some intermittent dizziness the patient describes as mild lightheadedness and not vertigo. She denies syncopal type symptoms are near-syncope just feels generalized weakness and slightly dizzy when up and around at work, more typically in the morning. Patient denies any syncope, falls or injury. No new headache, neck pain, chest pain, abdominal pain, extremity concerns or any neurovascular complaints. Patient has a history of an long-term therapy with oral contraceptives which she took from February 2018 into the moved here recently in April 2019 and she has been off it since then. She feels coming off her control pill is likely the cause of her symptoms. She does work for shift at [employer] and is a full-time employee. She denies any systemic complaints or concerns otherwise. Immunizations Immunizations Up to Date: yes Patient Tetanus UTD (Within 5 Years): yes Flu Vaccine: no Pneumonia Vaccine: no Allergies/Home Meds Allergy to Contrast: No Allergy to Iodine/Shellfish: No Allergies Allergy/AdvReac Type Severity Reaction Status Date / Time No Known Drug Allergies Allergy Unverified 05/29/19 11:00 Home Medications Medication Instructions Recorded Confirmed Nonformulary [No Known Home 05/29/19 05/29/19 Medications] Last Intake Date Of Last Food/Fluid: 05/29/19 Time Of Last Food/Fluid: 09:00 Reproductive History LMP: 04/30/2019 Sexually Active: Yes Currently : No Possibility of : Yes Comment: just stopped taking control in April Past Medical/Family/Social Hx [facility] Medical History Medical History (Updated 05/29/19 @ 12:32 by Jacky Finch MD) PCOS (polycystic ovarian syndrome) (Acute) Social History Social History (Updated 05/29/19 @ 11:01 by Candice Feliz RN) Smoking Status: Patient has never smoked. Substance Use: Denies substance use. Lives With: Lives with significant other. Housing: Lives in a house. Marital Status: Patient marital status is single. Caregiver/Support Person: Support person includes significant other. Employment Status: Employed; Sexually Active: Patient is sexually active. ROS Constitutional: Reports: no symptoms reported; Denies: body aches, chills, decreased/poor appetite, difficulty sleeping, fever(s), headache(s), malaise or weakness Eyes: Reports: no symptoms reported; Denies: blurry vision or light sensitivity Ears, Nose, Throat: Reports: as per HPI and dizziness; Denies: difficulty swallowing, ear pain, headache(s), nasal congestion or sore throat Breast/Chest: Reports: no symptoms reported Cardiovascular: Reports: no symptoms reported; Denies: chest pain, generalized swelling, palpitations or shortness of breath Respiratory: Reports: no symptoms reported; Denies: cough, shortness of breath or wheezing Gastrointestinal: Reports: no symptoms reported; Denies: abdominal pain, diarrhea, difficulty swallowing, nausea or vomiting Genitourinary: Reports: no symptoms reported; Denies: blood in urine or painful urination Musculoskeletal: Reports: no symptoms reported; Denies: muscle cramps Integumentary: Reports: no symptoms reported; Denies: rash Neurological: Reports: no symptoms reported; Denies: headache(s) Psychological: Reports: no symptoms reported Endocrine: Denies: palpitations Hematological/Lymphat ic: Reports: no symptoms reported Allergic/Immunologic: Reports: no symptoms reported; Denies: wheezing Exam Vital Signs Vital Signs Arrival Temperature 98.0 F 05/29/19 10:55 Pulse Rate 85 05/29/19 10:55 Respiratory Rate 16 05/29/19 10:55 Blood Pressure 143/71 H 05/29/19 10:55 Pulse Oximetry 100 05/29/19 10:55 Current/Last Documented Temperature 98.0 F 05/29/19 10:59 Pulse Rate 70 05/29/19 12:10 Respiratory Rate 18 05/29/19 12:10 Blood Pressure 139/70 05/29/19 12:10 Pulse Oximetry 100 05/29/19 12:10 Height/Weight/BMI Height 5 ft 4 in Weight 74.843 kg Body Mass Index 28.3 Const General no acute distress, appears healthy, well developed, comfortable, cooperative and not ill appearing Orientation alert, oriented x 3 and awake Appearance well groomed Limitations no limitations HENMT Head normal to inspection, normocephalic, atraumatic, no cyanosis and no periorbital ecchymosis Ears external ears normal bilaterally Nose external nose normal Face/Sinus normal facial exam Mouth normal oral mucosae, normal oropharynx and normal speech Teeth/Gingiva normal dentition and normal gingiva Throat posterior oropharynx normal Eyes Eyes normal appearance, normal alignment, normal conjunctivae and normal periorbital findings Pupils PERRL EOM EOM intact bilaterally Neck Neck normal visual inspection, supple, full ROM, trachea midline, nontender and no submandibular swelling Lymphatic no lymphadenopathy Chest Chest normal chest inspection and symmetrical chest movement Cardio Rate regular rate Rhythm regular rhythm Heart Sounds without murmurs Resp Effort Inspection normal respiratory effort, no accessory muscle use, no audible wheezes, no respiratory distress, no segmental paradoxical chest movements and symmetric chest movement Auscultation clear bilaterally throughout, no rales, no rhonchi and no wheezes GI Inspection normal inspection and no distension Palpation soft and nontender General bladder normal to palpation Musc Cervical Spine normal cervical lordosis Skin Skin pink, warm, dry, normal turgor, no cyanosis, no diaphoresis and no rash Neuro General alert, awake and oriented x3 (person, place, time) Cranial Nerves CN's II-XII intact bilaterally and PERRL Speech normal speech Gait normal gait Extrem Inspection normal inspection of extremities, normal/full ROM, normal capillary refill, normal gait, no calf tenderness and no edema Details Bilateral upper and lower extremities both with full range of motion and good strength and sensation throughout with no significant tenderness, lesions, weakness or sensory changes except as noted above. Psych Mental Status mental status grossly normal Speech normal speech Movement normal movement Results (EDM) Results Reviewed: laboratory results reviewed and radiology results reviewed Last Chemstick Result Finger Stick Blood Glucose 80 Laboratory 05/29/19 05/29/19 Range/Units 11:15 11:15 WBC 8.6 (4.8-10.8) 10 3/uL RBC 5.46 H (4.20-5.40) 10 6/cmm Hgb 15.3 (12.0-16.4) g/dL Hct 47.4 H (38.0-47.0) % MCV 87 (80.0-96.0) fL MCH 27.9 (27.0-31.0) pg MCHC 32.2 (32.0-36.0) g/dL RDW 14.1 (11.5-14.5) Plt Count 302 (130-400) 10 3/uL Neut % (Auto) 45.8 L (50.0-70.0) % Lymph % (Auto) 42.6 (20.0-44.0) % Dixon % (Auto) 8.0 (2.0-9.0) % Eos % (Auto) 3.0 (<4.0) % Baso % (Auto) 0.6 (<2.0) % Abs Neuts cells/mm3 4000 (4290-1777) /cmm Lymphocytes # 3700 (960-4752) /cmm Monocytes # 700 (96-972) /cmm Eosinophils # 300 (<432) /cmm Basophils # 100 (<216) /cmm Sodium 137 (136-145) mmol/L Potassium 4.3 (3.5-5.1) mmol/L Chloride 99 (98-107) mmol/L Carbon Dioxide 23 (22-29) mmol/L Anion Gap 19 H (9-18) BUN 11 (6-20) mg/dL Creatinine 0.57 (0.50-0.90) mg/dL GFR Calculation 139 (>60 mL/min) /1.73 m2 BUN/Creatinine Ratio 19.3 Glucose 83 (74-109) mg/dL Calcium 10.4 H (8.6-10.0) mg/dL Total Bilirubin 0.5 (0.2-1.2) mg/dL AST 26 (0-32) U/L ALT 23 (0-33) U/L Alkaline Phosphatase 82 (35-104) U/L Total Protein 8.5 H (6.4-8.3) g/dL Albumin 4.9 H (3.0-4.5) g/dL Globulin 3.6 H (2.3-3.5) g/dL Albumin/Globulin Ratio 1.4 (1-1.4) ratio Course Testing/Orders: Orders Category Date Time Status Orthostatic BP's PRN ADL 05/29/19 10:53 Active Neurological Checks ONCE Assessment 05/29/19 10:53 Active COMPLETE BLOOD COUNT Stat Lab 05/29/19 11:15 Completed COMPREHENSIVE METABOLIC PANEL Stat Lab 05/29/19 11:15 Completed - Urine [HCG URINE] Stat Lab 05/29/19 12:09 Received URINALYSIS Stat Lab 05/29/19 12:09 Received Chemsticks ONCE Routine Ca 05/29/19 10:53 Active Telemetry in ED ED TELE Routine Ca 05/29/19 10:53 Completed Course Narrative: COURSE SUMMARY: On arrival, patient was evaluated. Vital signs within normal limits. Patient comfortable and in no distress or discomfort. Physical exam is benign with no abnormal findings noted. For completeness orthostatic blood pressures were obtained and okay. Also labs obtained including a CBC and CMP and both demonstrated no acute findings. Urinalysis was within normal limits and serum HCG was negative. Patient does appear to have some intermittent dizziness of uncertain etiology. This could be secondary to hormonal modulation secondary to the recent discontinuation of her oral contraceptives a couple months ago after long-term therapy. I did give her a referral list for primary care physicians and gynecologists in the area and encouraged her to get evaluated, and restarted on her medication if needed. 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 However I did advise observation for signs and symptoms of such. Return to the ED if symptoms worsen or if additional concerns develop. Patient and her boyfriend were comfortable with this will follow up as discussed. I did advise her off work today. Discharge Plan Visit Data Chief Complaint: ED: Dizziness Stated Complaint: LIGHTHEADED, DIZZY, HEADACHES Triaged At: 05/29/19 10:53 Time Seen by Provider: 05/29/19 11:18 Disposition Disposition: Home or Self Care Discharge Clinical Impression: Dizziness Prescriptions: No Action No Known Home Medications 0 RF: 0 Follow-Up/Referrals: Doctor,No [Primary Care Provider] - [facility] Education/Forms: Retail Pharmacy (ED/URG), Patient Portal Instructions, ED-Off Work/School, Phys Accepting New Patients Education/Instruction s: Dizziness (ED) Additional/Special Instructions: Please note that testing in the ER today did include normal labs, normal urinalysis, negative and normal orthostatic blood pressures. Increase fluids and maintain good hydration. Ibuprofen (400-600 mg) or Tylenol every 6-8 hours as needed for discomfort. Disposition/Condition Condition: Good Electronically Signed By/Signed Date Time Jacky Finch MD 05/29/19 1930 Electronically Cosigned By/Signed Date Time Normal [facility] HCG URINEon 05-29-2019 Beta HCG ( test) Ql (U) Negative Normal [facility] Comment on above: Order Comment: COLLE CTED BY: adina oliveira Performed By: #### H CGU #### MAIN LAB CLIA:[id number] [address] [place] [address] URINALYSISon 05-29-2019 Appearance (U) CLEAR Normal CLEAR [facility] Comment on above: Order Comment: COLLE CTED BY: adina oliveira VOID-MIDSTREAM Performed By: #### U A #### MAIN LAB CLIA:[id number] [address] [place] [address] 70139 Color (U) YELLOW Normal [facility] Comment on above: Order Comment: COLLE CTED BY: adina oliveira VOID-MIDSTREAM Performed By: #### U A #### MAIN LAB CLIA:[id number] [address] [place] [address] 91342 RBC (U) [#/Vol] NONE Normal 0-2 [facility] Comment on above: Order Comment: COLLE CTED BY: adina oliveira VOID-MIDSTREAM Performed By: #### U A #### MAIN LAB CLIA:[id number] [address] [place] [address] 81686 UA BACTERIA NONE Normal NONE [facility] Comment on above: Order Comment: COLLE CTED BY: adina oliveira VOID-MIDSTREAM Performed By: #### U A #### MAIN LAB CLIA:[id number] [address] [place] [address] 81360 UA SQUAMOUS EPITHELIAL NONE Normal 0-4 [facility] Comment on above: Order Comment: COLLE CTED BY: adina oliveira VOID-MIDSTREAM Performed By: #### U A #### MAIN LAB CLIA:[id number] [address] [place] [address] 92296 UA WBC 0-2 Normal 0-2 [facility] Comment on above: Order Comment: COLLE CTED BY: adina oliveira VOID-MIDSTREAM Performed By: #### U A #### MAIN LAB CLIA:[id number] [address] [place] [address] 20284 Glucose (U) [Mass/Vol] Negative Normal NEGATIVE [facility] Comment on above: Order Comment: COLLE CTED BY: adina oliveira VOID-MIDSTREAM Performed By: #### U A #### MAIN LAB CLIA:[id number] [address] [place] [address] 16103 Ketones Ql (U) Negative Normal NEGATIVE [facility] Comment on above: Order Comment: COLLE CTED BY: adina oliveira VOID-MIDSTREAM Performed By: #### U A #### MAIN LAB CLIA:[id number] [address] [place] [address] 90193 Protein (U) [Mass/Vol] Negative Normal NEGATIVE [facility] Comment on above: Order Comment: COLLE CTED BY: adina oliveira VOID-MIDSTREAM Performed By: #### U A #### MAIN LAB CLIA:[id number] [address] [place] [address] 14445 UA BILIRUBIN Negative Normal NEGATIVE [facility] Comment on above: Order Comment: COLLE CTED BY: adina oliveira VOID-MIDSTREAM Performed By: #### U A #### MAIN LAB CLIA:[id number] [address] [place] [id number] UA BLOOD Negative Normal NEGATIVE [facility] Comment on above: Order Comment: COLLE CTED BY: adina oliveira VOID-MIDSTREAM Performed By: #### U A #### MAIN LAB CLIA:[id number] [address] [place] [address]4840 UA LEUKOCYTE ESTERASE Negative Normal NEGATIVE [facility] Comment on above: Order Comment: COLLE CTED BY: adina oliveira VOID-MIDSTREAM Performed By: #### U A #### MAIN LAB CLIA:[id number] [address] [place] [address] 96205 UA NITRITES Negative Normal NEGATIVE [facility] Comment on above: Order Comment: COLLE CTED BY: adina oliveira VOID-MIDSTREAM Performed By: #### U A #### MAIN LAB CLIA:[id number] [address] [place] [address]11 UA PH 5.5 Normal 5.0-8.0 [facility] Comment on above: Order Comment: COLLE CTED BY: adina oliveira VOID-MIDSTREAM Performed By: #### U A #### MAIN LAB CLIA:[id number] [address] [place] [address] 69876 UA SPECIFIC GRAVITY 1.010 Normal 1.001-1.035 [facility] Comment on above: Order Comment: COLLE CTED BY: adina oliveira VOID-MIDSTREAM Performed By: #### U A #### MAIN LAB CLIA:[id number] [address] [place] [address] [id number] UA UROBILINOGEN 0.2 mg/dL Normal 0.0-1.0 [facility] Comment on above: Order Comment: COLLE CTED BY: adina oliveira VOID-MIDSTREAM Performed By: #### U A #### MAIN LAB CLIA:[id number] [address] [place] [address] 24012 URINE SOURCE VOID-MIDSTREAM [facility] Comment on above: Order Comment: COLLE CTED BY: adina oliveira VOID-MIDSTREAM Performed By: #### U A #### MAIN LAB CLIA:[id number] [address] [place], [place] [id number] Vital Signs Date Time Vital Sign Value Performing Clinician Facility 10-24-2024 16:42-0400 Body temperature 98.5 [degF] Dr. Ruslan Wade MD Work Phone: 3([phone])[phone] [place] [address] 10-24-2024 16:42-0400 Diastolic blood pressure 90 mm[Hg] Dr. Ruslan Wade MD Work Phone: 4(712)[phone] [place] [address] 10-24-2024 16:42-0400 Heart rate 81 /min Dr. Ruslan Wade MD Work Phone: 8(926)866-117791 [place] [address] 10-24-2024 16:42-0400 Respiratory rate 18 /min Dr. Ruslan Wade MD Work Phone: 9(172)[phone] [place] [address] 10-24-2024 16:42-0400 SaO2% (BldA) [Mass fraction] 100 % Dr. Ruslan Wade MD Work Phone: 0(185)060-181891 [place] [address] 10-24-2024 16:42-0400 Systolic blood pressure 122 mm[Hg] Dr. Ruslan Wade MD Work Phone: 0(235)[phone] [place] [address] 10-24-2024 15:56-0400 Body height 165.[address] Ruslan Wade MD Work Phone: 3(619)[phone] [place] [address] 10-24-2024 15:56-0400 Body mass index (BMI) [Ratio] 33.7 kg/m2 Dr. Ruslan Wade MD Work Phone: 5(200)166-021828 [place] [address] 10-24-2024 15:56-0400 Body weight 92.[address] Ruslan Wade MD Work Phone: 9(142)[phone] [place] [address] 10-10-2024 15:55-0400 Body height 162.8 cm Wendy Plotts SOFTWARE TESTING SPECIALIST.CNM Work Phone: [facility] 10-10-2024 15:55-0400 Body mass index (BMI) [Ratio] 34.43 kg/m2 Wendy Plotts SOFTWARE TESTING SPECIALIST.CNM Work Phone: [facility] 10-10-2024 15:55-0400 Body weight 91.26 kg Wendy Plotts SOFTWARE TESTING SPECIALIST.CNM Work Phone: [facility] 10-10-2024 15:55-0400 Diastolic blood pressure 74 mm[Hg] Wendy Plotts SOFTWARE TESTING SPECIALIST.CNM Work Phone: [facility] 10-10-2024 15:55-0400 Systolic blood pressure 128 mm[Hg] Wendy Plotts SOFTWARE TESTING SPECIALIST.CNM Work Phone: [facility] 09-22-2024 14:47-0400 Body mass index (BMI) [Ratio] 38.36 kg/m2 Wendy Plotts SOFTWARE TESTING SPECIALIST.CNM Work Phone: [facility] 09-22-2024 14:47-0400 Body weight 92.08 kg Wendy Plotts SOFTWARE TESTING SPECIALIST.CNM Work Phone: [facility] 09-22-2024 14:47-0400 Diastolic blood pressure 66 mm[Hg] Wendy Plotts SOFTWARE TESTING SPECIALIST.CNM Work Phone: [facility] 09-22-2024 14:47-0400 Systolic blood pressure 110 mm[Hg] Wendy Plotts SOFTWARE TESTING SPECIALIST.CNM Work Phone: [facility] 08-31-2024 10:06-0400 Body mass index (BMI) [Ratio] 38.55 kg/m2 Wendy Plotts SOFTWARE TESTING SPECIALIST.CNM Work Phone: [facility] 08-31-2024 10:06-0400 Body weight 92.53 kg Wendy Plotts SOFTWARE TESTING SPECIALIST.CNM Work Phone: [facility] 08-31-2024 10:06-0400 Diastolic blood pressure 80 mm[Hg] Wendy Plotts SOFTWARE TESTING SPECIALIST.CNM Work Phone: [facility] 08-31-2024 10:06-0400 Systolic blood pressure 124 mm[Hg] Wendy Martinezts SOFTWARE TESTING SPECIALIST.CNM Work Phone: [facility] 08-02-2024 18:39-0400 Body mass index (BMI) [Ratio] 38.66 kg/m2 Loc Swank 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 Work Phone: [facility] 08-02-2024 18:39-0400 Body temperature 97.59 [degF] Loc Swank 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 Work Phone: [facility] 08-02-2024 18:39-0400 Body weight 92.8 kg Loc Swank 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 Work Phone: [facility] 08-02-2024 18:39-0400 Diastolic blood pressure 80 mm[Hg] Loc Swank 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 Work Phone: [facility] 08-02-2024 18:39-0400 Heart rate 86 /min Loc Swank 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 Work Phone: [facility] 08-02-2024 18:39-0400 Respiratory rate 18 /min Loc Swank 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 Work Phone: [facility] 08-02-2024 18:39-0400 SaO2% (BldA) [Mass fraction] 98 % Loc Swank 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 Work Phone: [facility] 08-02-2024 18:39-0400 Systolic blood pressure 121 mm[Hg] Loc Swank 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 Work Phone: [facility] 07-15-2024 16:04-0400 Body mass index (BMI) [Ratio] 38.17 kg/m2 [place] Geovanni DO Work Phone: [facility] 07-15-2024 16:04-0400 Body weight 91.63 kg Corey Hospitalrio DO Work Phone: [facility] 07-15-2024 16:04-0400 Diastolic blood pressure 80 mm[Hg] More Geovanni DO Work Phone: [facility] 07-15-2024 16:04-0400 Heart rate 96 /min More Geovanni DO Work Phone: [facility] 07-15-2024 16:04-0400 SaO2% (BldA) [Mass fraction] 97 % [place] Geovanni DO Work Phone: [facility] 07-15-2024 16:04-0400 Systolic blood pressure 100 mm[Hg] [place] Geovanni DO Work Phone: [facility] 06-10-2024 14:42-0500 Body height 154.9 cm [place] Geovanni DO Work Phone: [facility] 06-10-2024 14:42-0500 Body mass index (BMI) [Ratio] 37.98 kg/m2 More Geovanni DO Work Phone: [facility] 06-10-2024 14:42-0500 Body temperature 98.4 [degF] More Geovanni DO Work Phone: [facility] 06-10-2024 14:42-0500 Body weight 91.17 kg More Geovanni DO Work Phone: [facility] 06-10-2024 14:42-0500 Diastolic blood pressure 84 mm[Hg] More Geovanni DO Work Phone: [facility] 06-10-2024 14:42-0500 Heart rate 85 /min [place] Geovanni DO Work Phone: [facility] 06-10-2024 14:42-0500 SaO2% (BldA) [Mass fraction] 96 % [place] Geovanni DO Work Phone: [facility] 06-10-2024 14:42-0500 Systolic blood pressure 112 mm[Hg] More Geovanni DO Work Phone: [facility] 06-07-2024 18:02-0500 Body mass index (BMI) [Ratio] 33.31 kg/m2 Anusha Guillory 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 Work Phone: [facility] 06-07-2024 18:02-0500 Body temperature 96.91 [degF] Anusha Guillory 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 Work Phone: [facility] 06-07-2024 18:02-0500 Body weight 90.8 kg Anusha Guillory 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 Work Phone: [facility] 06-07-2024 18:02-0500 Diastolic blood pressure 70 mm[Hg] Anusha Guillory 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 Work Phone: [facility] 06-07-2024 18:02-0500 Heart rate 112 /min Anusha Guillory 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 Work Phone: [facility] 06-07-2024 18:02-0500 Respiratory rate 16 /min Anusha Guillory 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 Work Phone: [facility] 06-07-2024 18:02-0500 SaO2% (BldA) [Mass fraction] 97 % Anusha Guillory 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 Work Phone: [facility] 06-07-2024 18:02-0500 Systolic blood pressure 124 mm[Hg] Anusha Guillory 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 Work Phone: [facility] 06-02-2024 16:20-0500 Body height 165.1 cm MoreFutubrario DO Work Phone: [facility] 06-02-2024 16:20-0500 Body mass index (BMI) [Ratio] 33.28 kg/m2 [place] Geovanni DO Work Phone: [facility] 06-02-2024 16:20-0500 Body weight 90.72 kg [place] Geovanni DO Work Phone: [facility] 06-02-2024 16:20-0500 Diastolic blood pressure 60 mm[Hg] More Geovanni DO Work Phone: [facility] 06-02-2024 16:20-0500 Heart rate 72 /min [place] Geovanni DO Work Phone: [facility] 06-02-2024 16:20-0500 SaO2% (BldA) [Mass fraction] 96 % [place] Geovanni DO Work Phone: [facility] 06-02-2024 16:20-0500 Systolic blood pressure 90 mm[Hg] [place] Geovanni DO Work Phone: [facility] 05-26-2024 14:28-0500 Body height 165.1 cm More Geovanni DO Work Phone: [facility] 05-26-2024 14:28-0500 Body mass index (BMI) [Ratio] 33.28 kg/m2 [place] Geovanni DO Work Phone: [facility] 05-26-2024 14:28-0500 Body temperature 98.6 [degF] [place] Geovanni DO Work Phone: [facility] 05-26-2024 14:28-0500 Body weight 90.72 kg More Geovanni DO Work Phone: [facility] 05-26-2024 14:28-0500 Diastolic blood pressure 84 mm[Hg] More Geovanni DO Work Phone: [facility] 05-26-2024 14:28-0500 Heart rate 81 /min [place] Geovanni DO Work Phone: [facility] 05-26-2024 14:28-0500 SaO2% (BldA) [Mass fraction] 98 % More Geovanni DO Work Phone: [facility] 05-26-2024 14:28-0500 Systolic blood pressure 120 mm[Hg] More Geovanni DO Work Phone: [facility] 11-10-2021 16:43-0400 Body height 163.8 cm Augusta Kerr SLEEVE IRONER Work Phone: [facility] 11-10-2021 16:43-0400 Body mass index (BMI) [Ratio] 30.42 kg/m2 Augusta Kerr CNP Work Phone: [facility] 11-10-2021 16:43-0400 Body temperature 97.9 [degF] Augusta Kerr CNP Work Phone: [facility] 11-10-2021 16:43-0400 Body weight 81.65 kg Augusta Kerr CNP Work Phone: [facility] 11-10-2021 16:43-0400 Diastolic blood pressure 76 mm[Hg] Augusta Kerr CNP Work Phone: [facility] 11-10-2021 16:43-0400 Heart rate 75 /min Augusta Kerr CNP Work Phone: [facility] 11-10-2021 16:43-0400 Respiratory rate 16 /min Augusta Kerr CNP Work Phone: [facility] 11-10-2021 16:43-0400 SaO2% (BldA) [Mass fraction] 95 % Augusta Kerr CNP Work Phone: [facility] 11-10-2021 16:43-0400 Systolic blood pressure 107 mm[Hg] Augusta Kerr CNP Work Phone: [facility] 07-11-2021 10:50-0400 Body mass index (BMI) [Ratio] 29.52 kg/m2 Lele Servando DO Work Phone: [facility] 07-11-2021 10:50-0400 Body temperature 98.1 [degF] Lele Servando DO Work Phone: [facility] 07-11-2021 10:50-0400 Body weight 78.02 kg Lele Servando DO Work Phone: [facility] 07-11-2021 10:50-0400 Diastolic blood pressure 64 mm[Hg] Lele Esrvando DO Work Phone: [facility] 07-11-2021 10:50-0400 Heart rate 87 /min Lele Servando DO Work Phone: [facility] 07-11-2021 10:50-0400 SaO2% (BldA) [Mass fraction] 97 % Lele Servando DO Work Phone: [facility] 07-11-2021 10:50-0400 Systolic blood pressure 97 mm[Hg] Lele Servando DO Work Phone: [facility] 02-27-2021 11:56-0500 Body height 162.6 cm Soco Stuart CNP Work Phone: [facility] 02-27-2021 11:56-0500 Body mass index (BMI) [Ratio] 29.58 kg/m2 Soco Stuart CNP Work Phone: [facility] 02-27-2021 11:56-0500 Body temperature 96.6 [degF] Soco Stuart SLEEVE IRONER Work Phone: [facility] 02-27-2021 11:56-0500 Body weight 78.16 kg Soco Stuart CNP Work Phone: [facility] 02-27-2021 11:56-0500 Diastolic blood pressure 76 mm[Hg] Soco Stuart SLEEVE IRONER Work Phone: [facility] 02-27-2021 11:56-0500 Heart rate 77 /min Soco Mckeono SLEEVE IRONER Work Phone: [facility] 02-27-2021 11:56-0500 Respiratory rate 14 /min Soco Mckeono SLEEVE IRONER Work Phone: [facility] 02-27-2021 11:56-0500 SaO2% (BldA) [Mass fraction] 95 % Soco Mckeono SLEEVE IRONER Work Phone: [facility] 02-27-2021 11:56-0500 Systolic blood pressure 111 mm[Hg] Soco Mckeono SLEEVE IRONER Work Phone: [facility] 11-06-2020 09:55-0400 Body height 165.1 cm Lele Servando DO Work Phone: [facility] 11-06-2020 09:55-0400 Body mass index (BMI) [Ratio] 30.12 kg/m2 Lele Servando DO Work Phone: [facility] 11-06-2020 09:55-0400 Body temperature 98.1 [degF] Lele Servando DO Work Phone: [facility] 11-06-2020 09:55-0400 Body weight 82.1 kg Lele Servando DO Work Phone: [facility] 11-06-2020 09:55-0400 Diastolic blood pressure 68 mm[Hg] Lele Servando DO Work Phone: [facility] 11-06-2020 09:55-0400 Heart rate 88 /min Lele Servando DO Work Phone: [facility] 11-06-2020 09:55-0400 SaO2% (BldA) [Mass fraction] 98 % Lele Servando DO Work Phone: [facility] 11-06-2020 09:55-0400 Systolic blood pressure 99 mm[Hg] Lele Servando DO Work Phone: [facility] 10-26-2020 18:02-0400 Body mass index (BMI) [Ratio] 29.67 kg/m2 [employer] SLEEVE IRONER Work Phone: [facility] 10-26-2020 18:02-0400 Body temperature 98.6 [degF] [employer] SLEEVE IRONER Work Phone: [facility] 10-26-2020 18:02-0400 Body weight 80.88 kg [employer] SLEEVE IRONER Work Phone: [facility] 10-26-2020 18:02-0400 Diastolic blood pressure 80 mm[Hg] [employer] SLEEVE IRONER Work Phone: [facility] 10-26-2020 18:02-0400 Heart rate 81 /min Marco Antonio [address] SLEEVE IRONER Work Phone: [facility] 10-26-2020 18:02-0400 Respiratory rate 14 /min Marco Antonio [address] SLEEVE IRONER Work Phone: [facility] 10-26-2020 18:02-0400 SaO2% (BldA) [Mass fraction] 99 % Marco Antonio [address] SLEEVE IRONER Work Phone: [facility] 10-26-2020 18:02-0400 Systolic blood pressure 117 mm[Hg] Marco Antonio [address] SLEEVE IRONER Work Phone: [facility] 09-29-2020 09:53-0400 Body height 165.1 cm Jesenia Moy SLEEVE IRONER Work Phone: [facility] 09-29-2020 09:53-0400 Body mass index (BMI) [Ratio] 30.22 kg/m2 Jesenia Chinmay SLEEVE IRONER Work Phone: [facility] 09-29-2020 09:53-0400 Body temperature 97.39 [degF] Jesenia Chinmay SLEEVE IRONER Work Phone: [facility] 09-29-2020 09:53-0400 Body weight 82.37 kg Jesenia Chinmay SLEEVE IRONER Work Phone: [facility] 09-29-2020 09:53-0400 Diastolic blood pressure 81 mm[Hg] Jesenia Chinmay SLEEVE IRONER Work Phone: [facility] 09-29-2020 09:53-0400 Heart rate 73 /min Jesenia Chinmay SLEEVE IRONER Work Phone: [facility] 09-29-2020 09:53-0400 Respiratory rate 14 /min Jesenia Chinmay SLEEVE IRONER Work Phone: [facility] 09-29-2020 09:53-0400 SaO2% (BldA) [Mass fraction] 97 % Jesenia Chinmay SLEEVE IRONER Work Phone: [facility] 09-29-2020 09:53-0400 Systolic blood pressure 121 mm[Hg] Jesenia Chinmay SLEEVE IRONER Work Phone: [facility] Encounters Encounter Date Encounter Type Care Provider Facility Start: 10-24-2024 End: 10-24-2024 Emergency department patient visit Dr. Ruslan Wade MD Work Phone: -Emergency Department Work Phone: Start: 10-12-2024 End: 10-19-2024 Follow-up encounter Wendy Bennett APRN.CNM Work Phone: OB/Gynecology Start: 10-10-2024 End: 10-10-2024 Patient encounter procedure Wendy Bennett SOFTWARE TESTING SPECIALIST.CNM Work Phone: OB/Gynecology Comment on above: Encounter for gyneco logical examination (general) (routine) without abnormal findings (Primary Dx); Screening for cervical cancer; Encounter for screening for human papillomavirus (HPV); Vaginal discharge Start: 10-10-2024 End: 10-10-2024 Patient encounter status Wendy Bennett SOFTWARE TESTING SPECIALIST.CNM Work Phone: [facility] Start: 10-10-2024 End: 10-10-2024 ambulatory [facility] Facility:[facility] Start: 10-10-2024 Encounter for gynecological examination (general) (routine) without abnormal findings WENDY BENNETT [facility] Start: 09-22-2024 End: 09-22-2024 Patient encounter procedure Wendy Bennett SOFTWARE TESTING SPECIALIST.CNM Work Phone: OB/Gynecology Comment on above: Insertion of implant able subdermal contraceptive (Primary Dx) Start: 09-22-2024 End: 09-22-2024 [facility] Facility:[facility] Start: 08-31-2024 End: 08-31-2024 Patient encounter procedure Wendy Bennett SOFTWARE TESTING SPECIALIST.CNM Work Phone: OB/Gynecology Comment on above: Irregular periods (P rimary Dx); Personal history of contraception Start: 08-31-2024 End: 08-31-2024 [facility] Facility:[facility] Start: 08-02-2024 End: 08-02-2024 Patient encounter procedure Loc Beckett 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 Work Phone: [facility] Comment on above: Abnormal uterine ble eding (Primary Dx); Breakthrough bleeding on control pills Start: 08-02-2024 End: 08-02-2024 ambulatory LOC BECKETT Facility:[facility] Start: 07-21-2024 End: 07-22-2024 ambulatory More Galarza DO Work Phone: [facility] Start: 07-21-2024 End: 07-22-2024 Patient encounter procedure More Galarza DO Work Phone: [facility] Comment on above: Service Animal Start: 07-15-2024 End: 07-15-2024 Patient encounter procedure More Galarza DO Work Phone: [facility] Comment on above: VIVIANA (generalized anx iety disorder) (Primary Dx); Panic disorder; Amenorrhea; Family history of polycystic kidney; Class 2 obesity with body mass index (BMI) of 38.0 to 38.9 in adult, unspecified obesity type, unspecified whether serious comorbidity present Start: 07-15-2024 End: 07-15-2024 ambulatory MORE SHRADDHA GALARZA Facility:[facility] Start: 06-10-2024 End: 06-10-2024 ambulatory MORE SHRADDHA GALARZA Facility:[facility] Start: 06-10-2024 End: 06-10-2024 Patient encounter procedure More Galarza DO Work Phone: [facility] Comment on above: VIVIANA (generalized anx iety disorder) (Primary Dx); Panic disorder; Amenorrhea; Encounter for initial prescription of contraceptive pills; Class 2 obesity with body mass index (BMI) of 37.0 to 37.9 in adult, unspecified obesity type, unspecified whether serious comorbidity present Start: 06-10-2024 End: 06-10-2024 ambulatory CATO SHRADDHA GALARZA Facility:[facility] Start: 06-09-2024 End: 08-09-2024 Follow-up encounter More Galarza DO Work Phone: [facility] Start: 06-08-2024 End: 06-08-2024 ambulatory [facility] Facility:[facility] Start: 06-07-2024 End: 06-07-2024 Subsequent hospital visit by physician Bethanie [facility] Sindy Work Phone: Radiology Comment on above: Acute left ankle gem n [M25.572] Start: 06-07-2024 End: 06-07-2024 ambulatory [facility] Facility:[facility] Start: 06-07-2024 End: 06-07-2024 Patient encounter procedure Anusha Guillory APRN.SLEEVE IRONER Work Phone: [facility] Comment on above: Acute left ankle gem n (Primary Dx); Sprain of ligament of left ankle, initial encounter; Fall, initial encounter Start: 06-02-2024 End: 06-02-2024 Patient encounter procedure [place] Shraddha Mengrio DO Work Phone: [facility] Comment on above: VIVIANA (generalized anx iety disorder) (Primary Dx); Panic disorder; Class 1 obesity with body mass index (BMI) of 33.0 to 33.9 in adult, unspecified obesity type, unspecified whether serious comorbidity present Start: 06-02-2024 End: 06-02-2024 ambulatory [facility] Facility:[facility] Start: 05-31-2024 End: 05-31-2024 ambulatory [place] Shraddha Mengrio DO Work Phone: [facility] Start: 05-31-2024 End: 05-31-2024 Patient encounter procedure [place] Shraddha Geovanni DO Work Phone: [facility] Comment on above: Panic Attacks Start: 05-26-2024 End: 05-26-2024 Patient encounter procedure [place] Shraddha Geoavnni DO Work Phone: [facility] Comment on above: Anxiety with depress ion (Primary Dx); PCOS (polycystic ovarian syndrome); Abnormal facial hair; Class 1 obesity with body mass index (BMI) of 33.0 to 33.9 in adult, unspecified obesity type, unspecified whether serious comorbidity present; Screening for hyperlipidemia; Screening for thyroid disorder Start: 05-26-2024 End: 05-26-2024 ambulatory MORE GALARZA Facility:[facility] Start: 02-03-2024 End: 02-03-2024 ambulatory No Primary Care Physician Facility:[facility] Start: 01-17-2024 End: 01-17-2024 Emergency department patient visit No Primary Care Physician Facility:[facility] Start: 03-07-2022 ambulatory Keaton Sorenson [place] [facility] Start: 03-05-2022 End: 03-05-2022 Emergency department patient visit MARZENAELEUTERIO GOEL [facility] Start: 11-25-2021 Refill Lele Al DO Work Phone: [facility] Comment on above: Depression, unspecif ied depression type Start: 11-10-2021 End: 11-10-2021 ambulatory AUGUSTA KERR [facility] Start: 11-10-2021 End: 11-10-2021 Nursing evaluation of patient and report Augusta Kerr CNP Work Phone: [facility] Start: 11-10-2021 End: 11-10-2021 Patient encounter procedure Augusta Kerr CNP Work Phone: [facility] Comment on above: Encounter for physic al examination related to employment (Primary Dx) Start: 08-22-2021 Refill Lele Al DO Work Phone: [facility] Comment on above: Depression, unspecif ied depression type Start: 07-11-2021 End: 07-11-2021 ambulatory LELE AL [facility] Start: 07-11-2021 End: 07-11-2021 Office outpatient visit 25 minutes Lele Al DO Work Phone: [facility] Comment on above: Depression, unspecif ied depression type (Primary Dx); Injury of right ankle, subsequent encounter; PCOS (polycystic ovarian syndrome) Start: 06-12-2021 End: 06-12-2021 Emergency department patient visit LELELON QUIROGAOLPH SERVANDO [facility] Start: 05-08-2021 End: 05-08-2021 ambulatory [facility] Start: 04-02-2021 Refill Lele Quirogabarbara Al DO Work Phone: [facility] Start: 03-19-2021 End: 03-22-2021 ambulatory [facility] Start: 02-27-2021 End: 02-27-2021 ambulatory LELECorinne ALVARADO SERVANDO [facility] [facility] Start: 02-27-2021 End: 02-27-2021 Office outpatient visit 25 minutes Soco Stuart [employer]ER Work Phone: [facility] Comment on above: Vaginal discharge (P rimary Dx) Start: 01-07-2021 Orders Only Lele Chato Al DO Work Phone: [facility] Start: 12-14-2020 End: 12-14-2020 ambulatory [facility] Start: 12-10-2020 End: 12-10-2020 ambulatory [facility] Start: 12-07-2020 End: 12-07-2020 ambulatory CARRIECARA JEAN-BAPTISTE [facility] Start: 12-04-2020 End: 12-04-2020 ambulatory [facility] Start: 12-04-2020 End: 12-04-2020 Office outpatient visit 15 minutes Lele Al DO Work Phone: [facility] Comment on above: Depression, unspecif ied depression type (Primary Dx) Start: 11-27-2020 Admission to [facility] Nora Azevedo MA [facility] Comment on above: Ganglion, right wris t (Primary Dx); Exposure to SARS-associated coronavirus Start: 11-21-2020 End: 11-25-2020 ambulatory KELECHI POLANCO [facility] Start: 11-21-2020 End: 11-21-2020 Office outpatient new 45 minutes Kelechi Polanco MD Work Phone: [facility] Comment on above: Ganglion, right wris t (Primary Dx) Start: 11-06-2020 End: 11-10-2020 ambulatory LELE DUARTE AL [facility] Start: 11-06-2020 End: 11-06-2020 ambulatory [facility] Start: 11-06-2020 End: 11-06-2020 Office outpatient new 30 minutes Lele Al DO Work Phone: [facility] Comment on above: Depression, unspecif ied depression type (Primary Dx); Ganglion of wrist, unspecified laterality; Establishing care with new doctor, encounter for Start: 10-26-2020 End: 10-26-2020 Office outpatient visit 25 minutes [facility] Work Phone: [facility] Comment on above: Ganglion, right wris t (Primary Dx) Start: 09-29-2020 End: 09-29-2020 Office outpatient new 20 minutes Jesenia Moy [employer]ER Work Phone: [facility] [place] [facility] Comment on above: Vaginal discharge (P rimary Dx); Bacterial vaginosis Start: 11-18-2010 Patient encounter status Oliverio DO Work Phone: [facility] Procedures Date Procedure Procedure Detail Performing Clinician Start: 09-22-2024 UA DIP,URINE HCG (POC) Wendy Bennett SOFTWARE TESTING SPECIALIST.CNM Work Phone: Start: 06-07-2024 Radex ankle complete minimum 3 views Anusha Guillory 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 Work Phone: Start: 03-19-2021 Microscopic observat ion [Identifier] in Cervix by Cyto stain Lele Al DO Work Phone: Start: 02-27-2021 Cul bact xcpt urine blood/stool aerobic isol Soco Stuart [employer] IR[employer]ER Work Phone: Start: 09-29-2020 Infectious agent enz ymatic actv oth/thn virus Jesenia Moy [employer]E IR[employer]ER Work Phone: Plan of Treatment Date Care Activity Detail Author Start: 11-11-2031 Tetanus vaccination Tetanus: Every 10yrs [facility] Start: 11-11-2031 Urine microalbumin profile DTaP,Tdap,Td Vaccine (8 - Td or Tdap) [facility] Start: 10-10-2025 End: 10-10-2025 Patient encounter procedure 10/10/2025 4:00 PM EDT Office Visit OB/Gynecology [address] [place] [id number] Wendy Bennett APRN.CN [address] [place] [id number] Annual OB/Gynecology Comment on above: Annual Start: 10-10-2025 Screening for malignant neoplasm of cervix Cervical Cancer Screening [facility] Start: 01-13-2025 End: 01-13-2025 Patient encounter procedure 01/13/2025 4:00 [place] [address] More Galarza DO [address] [place] [address] f/u 6 month [facility] Comment on above: f/u 6 month Start: 12-05-2024 Influenza vaccination [facility] Start: 10-27-2024 End: 10-27-2024 Patient encounter procedure 10/27/2024 2:00 PM EDT Office Visit OB/Gynecology [address] [place] [id number] Yesi Mckoy MD [address] [place] [address] Colposcopy OB/Gynecology Comment on above: Colposcopy Start: 10-10-2024 End: 10-10-2024 Patient encounter procedure 10/10/2024 4:00 PM EDT Office Visit OB/Gynecology [address] [place] [address] Wendy Bennett APRN.CNM [address] [place] [address] annual OB/Gynecology Comment on above: annual Start: 09-22-2024 End: 09-22-2024 Patient encounter procedure 09/22/2024 2:45 PM EDT Office Visit OB/Gynecology [address] [place] [address] Wendy Bennett APRN.CNM [address] [place] [address] Irregular periods [N92.6 OB/Gynecology Comment on above: Irregular periods [N92.6 Start: 08-31-2024 End: 08-31-2024 Patient encounter procedure 08/31/2024 10:00 AM EDT Office Visit OB/Gynecology [address] [place] [address] Wendy Bennett APRN.CNSapphire [address] [place] [address] Discuss control OB/Gynecology Comment on above: Discuss control Start: 07-15-2024 End: 07-15-2024 Patient encounter procedure 07/15/2024 4:15 PM EDT Office Visit [facility] [address] [place] [address] More Galarza [address] [place] [address] f/u 6 weeks medication [facility] Comment on above: f/u 6 weeks medication Start: 07-15-2024 End: 07-15-2024 Patient encounter procedure 07/15/2024 2:30 PM EDT Office Visit [facility] [address] [place] [address] More Galarza DO [address] [place] [address] f/u 6 weeks medication [facility] Comment on above: f/u 6 weeks medication Start: 06-10-2024 End: 06-10-2024 Patient encounter procedure 06/10/2024 2:45 PM EST Office Visit [facility] [address] [place] [address] More Galarza, DO [address] [place] [address] F/u 1 week medication [facility] Comment on above: F/u 1 week medication Start: 06-08-2024 End: 06-08-2024 ambulatory 06/08/2024 4:00 PM EST Results Only [facility] [address] [place] [address] Labs [facility] Comment on above: Labs Start: 06-02-2024 End: 06-02-2024 Patient encounter procedure 06/02/2024 4:15 PM EST Office Visit [facility] [address] [place] [address] More Galarza DO [address] [place] [address] Discuss issue ( pt did not want to specify) [facility] Comment on above: Discuss issue ( pt did not want to speci fy) Start: 05-26-2024 End: 08-25-2024 CBC W Auto Differential panel - Blood COMPLETE BLOOD COUNT AND DIFFERENTIAL Lab Routine Screening for hyperlipidemia Expected: 05/26/2024, Expires: 08/25/2024 [facility] Work Phone: Comment on above: Expected: 05/26/2024, Expires: Start: 05-26-2024 End: 08-25-2024 Comprehensive metabolic 2000 panel - Serum or Plasma COMPREHENSIVE METABOLIC PANEL Lab Routine Screening for hyperlipidemia Expected: 05/26/2024, Expires: 08/25/2024 [facility] Comment on above: Expected: 05/26/2024, Expires: Start: 05-26-2024 End: 08-25-2024 Lipid 1996 panel - Serum or Plasma LIPID PANEL BASIC Lab Routine Screening for hyperlipidemia Expected: 05/26/2024, Expires: 08/25/2024 [facility] Comment on above: Expected: 05/26/2024, Expires: Start: 05-26-2024 End: 08-25-2024 Thyrotropin [Units/volume] in Serum or Plasma THYROID STIMULATING HORMONE Lab Routine Screening for thyroid disorder Expected: 05/26/2024, Expires: 08/25/2024 [facility] Comment on above: Expected: 05/26/2024, Expires: Start: 05-26-2024 End: 08-25-2024 Urinalysis complete panel - Urine URINALYSIS, WITH MICROSCOPIC Lab Routine Screening for hyperlipidemia Expected: 05/26/2024, Expires: 08/25/2024 [facility] Comment on above: Expected: 05/26/2024, Expires: Start: 03-19-2024 Screening for malignant neoplasm of cervix [facility] Start: 12-06-2023 Covid-19 Vaccine ( season) Covid-19 Vaccine () [facility] Start: 12-06-2023 Influenza vaccination Influenza Vaccine (#1) [facility] Start: 12-05-2021 Influenza vaccination [facility] Start: 07-30-2021 COVID-19 Vaccine (3 - Booster for Pfizer series) COVID-19 Vaccine (3 - Booster for Pfizer series) [facility] Start: 06-29-2021 COVID-19 Vaccine (3 - Booster for Pfizer series) COVID-19 Vaccine (3 - Booster for Pfizer series) [facility] Start: 03-26-2021 COVID-19 Vaccine (3 - Booster for Pfizer series) COVID-19 Vaccine (3 - Booster for Pfizer series) [facility] Start: 12-27-2020 End: 12-27-2020 Patient encounter procedure 12/27/2020 Office Visit Orthopedic Surgery Kelechi Polanco MD [address] [place] [id number] [facility] Start: 12-14-2020 End: 12-14-2020 Admission to same day surgery center 12/14/2020 Surgery Kelechi Polanco MD [address] [place] [id number] EXCISION RIGHT VOLAR WRIST GANGLION CYST [facility] Comment on above: EXCISION RIGHT VOLAR WRIST GANGLION CYST Start: 12-14-2020 End: 12-14-2020 EXCISION MASS HAND EXCISION MASS HAND Ganglion, right wrist 12/14/2020 10:40 AM EDT [facility] Start: 12-14-2020 End: 12-14-2020 Admission to same day surgery center 12/14/2020 Surgery Kelechi Polanco MD [address] [place] [address] EXCISION RIGHT VOLAR WRIST GANGLION CYST [facility] Comment on above: EXCISION RIGHT VOLAR WRIST GANGLION CYST Start: 12-14-2020 End: 12-14-2020 EXCISION MASS HAND EXCISION MASS HAND Ganglion, right wrist 12/14/2020 7:50 AM EDT [facility] Start: 12-14-2020 Subsequent hospital visit by physician 12/14/2020 Hospital Encounter Kelechi Polanco MD [address] [place] [address] [facility] Start: 12-10-2020 End: 12-10-2020 Patient encounter procedure 12/10/2020 Office Visit Lab Kelechi Polanco MD [address] [place] [address] [facility] Start: 12-07-2020 End: 12-07-2020 Patient encounter procedure 12/07/2020 Office Visit Pre-Admission Testing Kelechi Polanco MD [address] [place] [address] [facility] Preadmission Testing Start: 12-05-2020 Influenza vaccination [facility] Start: 12-04-2020 End: 12-04-2020 Telemedicine consultation with patient 12/04/2020 Telemedicine Primary Care Lele Al, DO [address] [address] [facility] Start: 11-21-2020 End: 11-21-2020 Patient encounter procedure 11/21/2020 Office Visit Orthopedic Surgery Kelechi Polanco MD [address] [place] [address] [phone] [facility] Start: 11-06-2020 End: 11-06-2020 Patient encounter procedure 11/06/2020 Office Visit Primary Care Lele Al, DO [address] [address] [phone] [facility] Start: 09-29-2020 End: 09-29-2021 Genital microscopy, culture and sensitivities Genital Aerobic Culture Microbiology Routine Vaginal discharge Expected: 09/29/2020, Expires: 09/29/2021 [facility] Comment on above: Expected: 09/29/2020, Expires: Start: 10-08-2014 Hepatitis B Vaccine (1 of 3 - 19+ 3-dose series) Hepatitis B Vaccine (1 of 3 - 19+ 3-dose series) [facility] Start: 2013 Hepatitis C screening Hepatitis C Screening [facility] Start: 2013 HIV screening HIV Screening [facility] Start: 2010 HIV screening HIV Screening [facility] Start: 2007 COVID-19 Vaccine (1) COVID-19 Vaccine (1) [facility] Start: 2007 Depression screening using PHQ-9 (Patient Health Questionnaire 9) score Depression Screening (PHQ9) [facility] Start: 2006 Vaccination for human papillomavirus HPV Vaccines (1 - 2-dose series) [facility] Start: 1998 History and physical examination, annual for health maintenance Wellness Visit [facility] Start: 1995 Screening for malignant neoplasm of cervix Pap Smear [facility] Start: 1995 Tetanus vaccination Tetanus: Every 10yrs [facility] BACTERIAL VAGINOSIS NAAT BACTERI AL VAGINOSIS NAAT Lab Routine Vaginal discharge Ordered: 10/10/2024 [facility] Comment on above: Ordered: 10/10/2024 VERÓNICA/TRICHOMONAS NAAT VERÓNICA /TRICHOMONAS NAAT Lab Routine Vaginal discharge Ordered: 10/10/2024 [facility] Comment on above: Ordered: 10/10/2024 COLPOSCOPY COLPOSCOPY Proce dur Routine Cervical high risk HPV (human papillomavirus) test positive Ordered: 10/19/2024 [facility] Work Phone: Comment on above: Ordered: 10/19/2024 End: 11-06-2021 Comprehensive metabolic 2000 panel - Serum or Plasma Comprehensive Metabolic Panel Lab Routine Depression, unspecified depression type 1 Occurrences starting 11/06/2020 until 11/06/2021 [facility] Comment on above: 1 Occurrences starting 11/06/2020 until 11/06/2021 Comprehensive metabo lic 2000 panel - Serum or Plasma Comprehensive Metabolic Panel Lab Routine Depression, unspecified depression type 11/06/2020 11:29 AM EDT [facility] EXCISION MASS HAND EXCISION MASS HAND Ganglion, right wrist [facility] Genital microscopy, culture and sensitivities Genital Aerobic Culture Microbiology Routine Vaginal discharge 09/29/2020 10:24 AM EDT [facility] Genital microscopy, culture and sensitivities Genital Aerobic Culture Microbiology Routine Vaginal discharge 02/27/2021 12:24 PM EST [facility] Work Phone: End: 11-06-2021 Hepatitis C antibody measurement Hepatitis C Antibody Lab Routine Depression, unspecified depression type 1 Occurrences starting 11/06/2020 until 11/06/2021 [facility] Comment on above: 1 Occurrences starting 11/06/2020 until 11/06/2021 Hepatitis C antibody measurement Hepatitis C Antibody Lab Routine Depression, unspecified depression type 11/06/2020 11:29 AM EDT [facility] End: 11-06-2021 Human immunodeficiency virus antibody test HIV 1/2 Screen (4th Generation) Lab Routine Depression, unspecified depression type 1 Occurrences starting 11/06/2020 until 11/06/2021 [facility] Comment on above: 1 Occurrences starting 11/06/2020 until 11/06/2021 Human immunodeficien cy virus antibody test HIV 1/2 Screen (4th Generation) Lab Routine Depression, unspecified depression type 11/06/2020 11:29 AM EDT [facility] End: 11-06-2021 Lipid 1996 panel - Serum or Plasma Lipid Panel Lab Routine Depression, unspecified depression type 1 Occurrences starting 11/06/2020 until 11/06/2021 [facility] Comment on above: 1 Occurrences starting 11/06/2020 until 11/06/2021 Lipid 1996 panel - S olga or Plasma Lipid Panel Lab Routine Depression, unspecified depression type 11/06/2020 11:29 AM EDT [facility] NEXPLANON INSERTION NEXPLANON IN SERTION Procedures Routine Irregular periods Ordered: 08/31/2024 [facility] Work Phone: Comment on above: Ordered: 08/31/2024 PAP TEST PAP TEST Lab Padilla odom Encounter for gynecological examination (general) (routine) without abnormal findings Screening for cervical cancer Encounter for screening for human papillomavirus (HPV) Ordered: 10/10/2024 [facility] Work Phone: Comment on above: Ordered: 10/10/2024 Patient Education ED Dental Pain ED Dental Cavity [facility] Work Phone: End: 11-27-2021 SARS-CoV-2 (COVID-19) RdRp gene [Presence] in Respiratory specimen by VICKY with probe detection COVID-19, Molecular Microbiology Routine Exposure to SARS-associated coronavirus 1 Occurrences starting 11/27/2020 until 11/27/2021 [facility] Work Phone: Comment on above: 1 Occurrences starting 11/27/2020 until 11/27/2021 End: 11-06-2021 Thyrotropin [Units/volume] in Serum or Plasma TSH with Reflex Free T4 Lab Routine Depression, unspecified depression type 1 Occurrences starting 11/06/2020 until 11/06/2021 [facility] Comment on above: 1 Occurrences starting 11/06/2020 until 11/06/2021 Thyrotropin [Units/volume] in Serum or Plasma TSH with Reflex Free T4 Lab Routine Depression, unspecified depression type 11/06/2020 11:29 AM EDT [facility] UA DIP,URINE HCG (POC) UA DIP,UR INE HCG (POC) Lab Routine Amenorrhea Ordered: 06/10/2024 [facility] Work Phone: Comment on above: Ordered: 06/10/2024 End: 08-14-2025 US Kidney - bilateral and Urinary bladder US KIDNEY/BLADDER Radiology Routine Family history of polycystic kidney 1 Occurrences starting 07/15/2024 until 08/14/2025 [facility] Work Phone: Comment on above: 1 Occurrences starting 07/15/2024 until 08/14/2025 Immunizations Immunization Date Immunization Notes Care Provider Will hanks 11-10-2021 tetanus toxoid, reduced diphtheria toxoid, and acellular pertussis vaccine, adsorbed Augusta Kerr SLEEVE IRONER Work Phone: [facility] 01-29-2021 Pfizer SARS-CoV-2 Vaccination Soco Stuart SLEEVE IRONER Work Phone: [facility] 01-08-2021 COVID-19 original vaccine, age 12+ yr, monovalent ([employer] - PURPLE TOP) Anusha Guillory 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 Work Phone: [facility] 11-18-2010 human papilloma viru s vaccine, quadrivalent [facility] DO Work Phone: [facility] 11-18-2010 Meningococcal, MCV4, unspecified conjugate formulation(groups A, C, Y and W-135) More Geovanni DO Work Phone: [facility] 11-18-2010 tetanus toxoid, reduced diphtheria toxoid, and acellular pertussis vaccine, adsorbed [facility] DO Work Phone: [facility] Work Phone: 12-11-1999 diphtheria, tetanus toxoids and acellular pertussis [facility] 12-11-1999 measles, mumps and rubella virus vaccine More Geovanni DO Work Phone: [facility] 12-11-1999 trivalent poliovirus vaccine, live, oral [facility] DO Work Phone: [facility] 04-25-1996 diphtheria, tetanus toxoids and acellular pertussis vaccine [facility] DO Work Phone: [facility] 04-25-1996 haemophilus influenz ae type b vaccine, HbOC conjugate [facility] DO Work Phone: [facility] 01-20-1996 measles, mumps and rubella virus vaccine [facility] DO Work Phone: [facility] 1995 hepatitis B immune globulin [facility] DO Work Phone: [facility] 1995 diphtheria, tetanus toxoids and acellular pertussis vaccine [facility] DO Work Phone: [facility] 1995 haemophilus influenz ae type b vaccine, HbOC conjugate [facility] DO Work Phone: [facility] 1995 trivalent poliovirus vaccine, live, oral [facility] DO Work Phone: [facility] 1995 diphtheria, tetanus toxoids and acellular pertussis vaccine [facility] DO Work Phone: [facility] 1995 haemophilus influenz ae type b vaccine, HbOC conjugate [facility] DO Work Phone: [facility] 1995 trivalent poliovirus vaccine, live, oral [place] Ge[facility] DO Work Phone: [facility] 1995 diphtheria, tetanus toxoids and acellular pertussis vaccine [facility] DO Work Phone: [facility] 1995 haemophilus influenz ae type b vaccine, HbOC conjugate [facility] DO Work Phone: [facility] 1995 hepatitis B immune globulin [facility] DO Work Phone: [facility] 1995 trivalent poliovirus vaccine, live, oral [facility] DO Work Phone: [facility] 1995 hepatitis B immune globulin [facility] DO Work Phone: [facility] Payers Date Payer Category Payer [facility] [id number] 2024 Unknown [id number] 2024 Self-pay 2020 Unknown [id number] 2017 Unknown [id number] 2017 Unknown [facility] UMR ALDANA CE PLUS [id number] 2017-Present [phone] [address] [address] [place] [address] [id number] 2005 Unknown [id number] 1995 Unknown [id number] [id number] 02 1995 Unknown [id number] 2.16.840.1.392991.3.579.2.9 02 1995 Unknown [id number] 2.16.840.1.241609.3.579.2.9 00 1995 Unknown [id number] 2.16.840.1.349628.3.579.2.9 00 1995 Unknown [id number] 2.16.840.1.769243.3.579.2.9 00 1995 Unknown [id number] 2.16.840.1.269400.3.579.2.9 00 1995 Unknown [id number] 2.16.840.1.928339.3.579.2.9 03 1995 Unknown [id number] 2.16.840.1.058446.3.579.2.9 03 1995 Unknown [id number] 2.16.840.1.869562.3.579.2.9 03 1995 Unknown [id number] 2.16.840.1.025664.3.579.2.9 03 1995 Unknown [id number] 2.840.1.475364.3.579.2.9 03 1995 Unknown [id number] 2.16.840.1.602319.3.579.2.9 03 1995 Unknown [id number] 2.16.840.1.671730.3.579.2.9 03 1995 Unknown [id number] 2.840.1.015313.3.579.2.9 03 1995 Unknown [id number] 2.16.840.1.906044.3.579.2.9 03 1995 Unknown [id number] 2.16.840.1.145775.3.579.2.9 02 1995 Unknown [id number] 2.16.840.1.871514.3.579.2.9 02 Unknown [id number] 2.16.840.1.287291.3.579.2.4 62 Unknown [id number] 2.840.1.137200.3.579.2.4 62 Unknown [id number] 2.840.1.204834.3.579.2.4 62 Social History Date Type Detail Facility Start: 09-29-2020 End: 10-24-2024 Tobacco smoking status NHIS Never smoker [facility] Start: 09-29-2020 End: 08-02-2024 Tobacco use and exposure Never used [facility] Start: 09-29-2020 End: 10-10-2024 Alcohol intake Current drinker of alcohol (finding) [facility] Start: 1995 Sex Assigned At Not on file [facility] Start: 06-26-2021 End: 03-05-2022 Exposure to SARS-CoV-2 (event) Not sure [facility] Start: 12-04-2020 End: 05-26-2024 Alcohol intake [facility] Start: 12-04-2020 History SDOH Alcohol Comment a drink every few weeks [facility] Start: 12-07-2020 History SDOH Alcohol Comment Occas [facility] Exposure to SARS-CoV -2 (event) Unable to assess [facility] Start: 05-26-2024 End: 10-10-2024 Tobacco use panel [facility] Adult Depression Screening Assessment 5 [facility] Start: 05-26-2024 Alcohol Comment socially [facility] Start: 1995 Sex Assigned At Female [facility] Functional Status Date Assessment Result Facility 07-20-2013 Are you deaf, or do you have serious difficulty hearing No 07/20/2013 2:24 PM Mary Jimenes LPN No [facility] 07-20-2013 Are you blind, or do you have serious difficulty seeing, even when wearing glasses No 07/20/2013 2:24 PM Mary Jimenes LPN No [facility] 07-20-2013 Do you have serious difficulty walking or climbing stairs No 07/20/2013 2:24 PM Mary Jimenes LPN No [facility] 07-20-2013 Do you have difficul ty dressing or bathing No 07/20/2013 2:24 PM Mary Jimense LPN No [facility] 07-20-2013 Because of a physica l, mental, or emotional condition, do you have difficulty doing errands alone such as visiting a physician's office or shopping No 07/20/2013 2:24 PM EDT Mary Zavala LPN No [facility] Mental Status Date Assessment Result Facility 07-20-2013 Because of a physica l, mental, or emotional condition, do you have serious difficulty concentrating, remembering, or making decisions No 07/20/2013 2:24 PM EDT Mary Zavala LPN No [facility] Clinical Notes 09-29-2020 to 10-24-2024 Note Date & Type Note Facility 10-24-[address] [facility] 10-24-2024 Discharge summary Note Date/Time October 24, 2024 4:30pm [facility] Medical Records Department [address] [place] [address] Emergency Department Summary 10/24/24 MR#: [id number] Acct: [id number] Name: RUFINA ASTUDILLO Rep #:[id number] : 1995 29 From: Ruslan Wade MD PCP: Dr. Gopal Galarza, Status :[facility] ER Location: ED HPI History of Present Illness Chief Complaint: Dental Informant: patient Onset/Context/Timing Onset: Days Context: Gradual Onset Timing: Intermittent Maximum Severity: Moderate Narrative Narrative: 28-year-old female no past medical history. Having left upper dental pain intermittently the last several days to weeks. Also has known cavities on the right lower jaw. Currently does not have dental insurance. Prior similar symptoms: Yes Recent Illness/Hospitalization: No PFSH PFS Medical History Physical exam, pre-employment Depression PCOS (polycystic ovarian syndrome) Home Medications ?Medication ?Instructions ?Recorded ?Last Taken ?Type cephalexin 500 mg capsule 500 mg PO Q6 #20 caps Unknown Rx norgestimate 0.25 mg-ethinyl 1 tab PO DAILY 09/19/18 0 09/19/18 History estradiol 0.035 mg tablet (Sprintec (28)) amoxicillin 875 mg-potassium 1 tab PO Q12H 7 days #14 tabs 01/17/24 Unknown Rx clavulanate 125 mg tablet penicillin V potassium 500 mg 500 mg PO 4X/DAY #40 tab s 10/24/24 Unknown Rx tablet Allergy/AdvReac Type Severity Reaction Status Date / Time No Known Allergies Allergy Verified 01/17/24 13:44 Social History Smoking Status: Never smoker ROS ROS ED ROS Narrative Denies recent illness. Constitutional Constitutional ED: Denies chills or fever(s) Eyes Eyes: Denies blurry vision ENT ENT ED: Denies ear pain Cardiovascular Cardiovascular: Denies chest pain Respiratory/Chest Respiratory/Chest: Denies cough or dyspnea Gastrointestinal Gastrointestinal: Denies abdominal pain Genitourinary Genitourinary ED: Denies dysuria or hematuria Musculoskeletal Musculoskeletal: Denies arthralgias or back pain Integumentary Denies abscess or Abrasions Neurologic Neurologic: Denies headache(s) Psychiatric Psychiatric: Denies anxiety Endocrine Endocrinology: Denies cold intolerance Hematologic/Lymphatic Hematologic/Lymphatic: Denies easy bleeding Allergic/Immunologic Allergic/Immunologic ED: Denies mouth swelling EXAM Physical Exam Narrative Exam Narrative: Well-appearing 29-year-old female sitting upright in bed. Vital signs stable afebrile. No distress. H EENT exam left upper dentition midportion third to last molar there is a chip in the posterior aspect. There is no gingival swelling or abscess. Mildly tender. Right lower jaw there is no swelling but she has 2 large cavities decaying the tooth down to the gingiva. There is no abscess. No trismus. Posterior pharynx normal. No trouble swallowing or breathing. Underneath the tongue is normal in appearance. No Toya's. Neck nontender no lymphadenopathy. Lungs clear to auscultation bilaterally. Heart regular rhythm no murmur. Abdomen soft nontender. Moving all 4 extremities. Awake and alert. Const Vital Signs: 10/24/24 15:56 Temperature 97.8 F Temperature Source Temporal Pulse Rate 101 H Respiratory Rate 16 Blood Pressure 128/89 H Blood Pressure Mean 102 Pulse Ox 100 Oxygen Delivery Method Room Air Positive well nourished and well developed; Negative for cachectic, contracturesor unkempt General Appearance ED: well developed and NAD; Negative for unkempt, cachectic or contractures Nutritional Appearance: Negative for cachectic HEENT HEENT Narrative: Left upper molar through from the back is chipped. Right lower jaw molars largecavity is decayed to the gumline. Minimal gingival swelling no abscess. No trismus. No trouble swallowing or breathing. Negative for trauma Mouth ED: Yes oral and palatal mucosa normal, Yes lips normal, Yes tongue normaland Yes salivary gland normal Mouth: oral and palatal mucosa normal, lips normal, tongue normal and salivary gland normal Teeth and Gingiva: abnormal tooth and associated gingiva, caries and poor dentition Throat: posterior oropharynx normal Eyes PERRL and EOMs intact bilaterally Neck no lymphadenopathy, supple and no JVD Lymph Lymphatic: no lymphadenopathy noted Chest Wall inspection of chest normal and palpation of chest normal Resp normal respiratory effort, no retractions and clear to auscultation bilaterally Cardio regular rate, regular rhythm, S1 normal heart sound, S2 normal heart sound and no murmurs GI normal to inspection, nondistended, normoactive bowel sounds, non-tender, non-distended and no masses Back/Spine no CVA tenderness Extremity no joint enlargement Neuro oriented x3, CN's II-XII intact bilaterally, moves all extremities and no focal motor deficits Sensorium / Orientation: oriented to person, oriented to place and oriented to time Motor Exam: strength 5/5 throughout Psych mental status grossly normal Appearance: Negative for unkempt Skin no rashes or lesions noted and no wounds Image ED - URI/Dental Diagram: 2 1. Fractured left upper third molar from the back. 2. Large cavity decay of the third molar on the right bottom and first premolar. MDM MDM MDM Narrative Medical decision making narrative: 29-year-old with placed on Pen-Vee K for dental cavities and gingival swelling. Also has a dental fracture. [facility]. History & Record Review Discussion w/independent historian: Patient Discharge Plan Triage Chief Complaint: Dental ED Provider: Ruslan Wade Dx/Rx/DC Orders Clinical Impression: Pain, dental, Fracture of tooth, Dental cavity Instructions: ED Dental Pain, ED Dental Cavity Prescriptions: New penicillin V potassium 500 mg tablet 500 mg PO 4X/DAY Qty: 40 0RF No Action norgestimate-ethinyl estradiol [Sprintec (28)] 1 TABLET tablet 1 tab PO DAILY Patient Comments: TAKE 1 TABLET BY MOUTH EVERY DAY cephalexin 500 MG capsule 500 mg PO Q6 Qty: 20 0RF amoxicillin-pot clavulanate 875-125 mg tablet 1 tab PO Q12H 7 Days Qty: 14 0RF Primary Care Provider: Gopal Galarza Referrals: Care Physician,No Primary [Non-Staff] - [facility] [Non-Staff] - As soon as possible Activity Restrictions/Additional Instructions: Ice to your jaw. Motrin and Tylenol for pain. Penicillin 4 times a day. Call the clinic tell them you need dental care for fractured tooth and cavities and get an appointment set up. They are across the street from the hospital. Print Language: Sierra Leonean Disposition Disposition: Home, Self Care What to do if you have Problems For any increased pain, shortness of breath, bleeding, nausea or vomiting, chestpain, or any unexpected problems, contact your Primary Care Provider. Call [facility] ([phone]) or report to the closest Emergency Room. Call 911 if necessary. 10/24/24 1630 <Electronically signed by Ruslan Wade MD> Cosigner Signature (if applicable): CC: Dr. Gopal Galarza DO ~ Signed [facility] Work Phone: [phone] 378-470707-16-2025 Telephone encounter Note* Telephone Encounter - Stephanie Rojas RN - 10/19/2024 5:05 PM EDT Patient notified of results, verbalizes understanding of instructions. Colposcopy appointment scheduled. Stephanie Rojas RN [facility]07-16-2025 Miscellaneous Notes* Telephone Encounter - Stephanie Rojas RN - 10/19/2024 5:05 PM EDT Patient notified of results, verbalizes understanding of instructions. Colposcopy appointment scheduled. Stephanie Rojas RN * Telephone Encounter - Jada Riley MD - 10/19/2024 4:51 PM EDT She will need colposcopy * Telephone Encounter - Stephanie Rojas RN - 10/19/2024 2:17 PM EDT Pap normal, HPV other type positive. Can you review in CP's absence? Stephanie Rojas RN [facility] Telephone encounter Note * Telephone Encounter - Jada Riley MD - 10/19/2024 4:51 PM EDT She will need colposcopy [facility]07-16-2025 Telephone encounter Note* Telephone Encounter - Stephanie Rojas RN - 10/19/2024 2:17 PM EDT Pap normal, HPV other type positive. Can you review in CP's absence? Stephanie Rojas RN [facility]07-07-2025 NoteHNO ID: [id number] Author: WENDY BENNETT APRN.CNM Service: ? 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 Rufina is a 29 year old who presents for an annual gynecologic exam without complaints. 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 History Comments: Sexual Activity: Yes; Male Contraception: Pill Menstrual Tracking History Flowsheet Row Office Visit from 08/31/2024 in OB/Gynecology Menstrual Flow Moderate PAST MEDICAL HISTORY Diagnosis Date Abnormal glandular Papanicolaou smear of cervix 2020 Anxiety Depression Insomnia PCOS (polycystic ovarian syndrome) PAST SURGICAL HISTORY Procedure Laterality Date CYST/MOLE REMOVAL gaglean NEXPLANON INSERTION Left 09/22/2024 Placed in office VAGINOSCOPY 2020 Pt reported FAMILY HISTORY Problem Relation Age of Onset other (iron deficient) Mother Kidney Disease Father No Known Problems Sister Hypothyroidism Sister Diabetes Maternal Grandmother SOCIAL HISTORY Social History Tobacco Use Smoking status: Never Smokeless tobacco: Never Vaping Use Vaping status: Never Used Substance Use Topics Alcohol use: Yes Comment: socially Drug use: Yes Types: Marijuana REVIEW OF SYSTEMS Abdomen: No abdominal pain, nausea, vomiting, diarrhea, or constipation. No bloating, early satiety, indigestion, or increased flatulence. Bladder: No dysuria, gross hematuria, urinary frequency, urinary urgency, or incontinence. Breast: No breast lumps, nipple d/c, overlying skin changes, redness or skin retraction. Allergies and current medication updated:Yes SENSITIVE EXAM: The sensitive examination was discussed with the Patient or Patient's Authorized Vice President Media Relations. As applicable, any other physician, advance practice provider, medical student, or other health professional student that will be observing or involved in the sensitive examination for educational or training purposes was discussed with the Patient or Authorized Vice President Media Relations. The Patient or Authorized Vice President Media Relations has agreed to proceed with the sensitive examination. (Sensitive examination includes inspection and/or palpation of the breasts, pelvis, prostate and anorectal regions). EXAM: BP 128/74 Ht 5' 4.094 (1.63m) Wt 201 lb 3.2 oz (91.3kg) LMP 09/07/2024 BMI 34.43 kg/(m2). GENERAL: pleasant, female in no apparent distress HEENT: Normocephalic and atraumatic NECK: Supple and full range of motion DERMATOLOGY: Normal and without lesions BREAST: soft, non-tender, symmetric, no dominant mass, normal nipple-areolar complex, no lymphadenopathy, no nipple discharge, and bilateral piercings CHEST: Normal inspiratory effort ABDOMEN: soft, non-tender, and no masses PELVIC: external genitalia normal, normal Bartholin's glands, urethra, Almanor's glands, no vulvar lesions, no cervical lesions, good vaginal support, normal appearing perineal body and perianal region. Increased white/yellow discharge present. Cervix friable BIMANUAL: uterus normal size, shape and consistency, no adnexal masses, non-tender, and no cervical motion tenderness RECTOVAGINAL: deferred. NEURO: alert and oriented x3,exam grossly non-focal EXTREMITIES: normal ASSESSMENT/PLAN: 1) Health maintenance: Pap done with HPV. Nutrition, exercise and routine health maintenance exams reviewed. HPV vaccine: discussed, not interested 2) Contraception: Nexplanon. Contraceptive options reviewed and information provided. 3) STD screening: Declined STD check. 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 Rufina is a 29 year old who presents for an annual gynecologic exam without complaints. 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 History Comments: Sexual Activity: Yes; Male Contraception: Pill Menstrual Tracking History Flowsheet Row Office Visit from 08/31/2024 in OB/Gynecology Menstrual Flow Moderate PAST MEDICAL HISTORY Diagnosis Date Abnormal glandular Papanicolaou smear of cervix 2020 Anxiety Depression Insomnia PCOS (polycystic ovarian syndrome) PAST SURGICAL HISTORY Procedure Laterality Date CYST/MOLE REMOVAL gaglean NEXPLANON INSERTION Left 09/22/2024 Placed in office VAGINOSCOPY 2020 Pt reported FAMILY HISTORY Problem Relation Age of Onset other (iron deficient) Mother Kidney Disease Father No Known Problems Sister Hypothyroidism Sister Diabetes Maternal Grandmother SOCIAL HISTORY Social History Tobacco Use Smoking status: Never Smokeless tobacco: Never Vaping Use Vaping status: Never Used Substance Use Topics Alcohol use: Yes Comment: socially Drug use: Yes Types: Marijuana REVIEW OF SYSTEMS Abdomen: No abdominal pain, nausea, vomiting, diarrhea, or constipation. No bloating, early satiety, indigestion, or increased flatulence. Bladder: No dysuria, gross hematuria, urinary frequency, urinary urgency, or incontinence. Breast: No breast lumps, nipple d/c, overlying skin changes, redness or skin retraction. Allergies and current medication updated:Yes SENSITIVE EXAM: The sensitive examination was discussed with the Patient or Patient's Authorized Vice President Media Relations. As applicable, any other physician, advance practice provider, medical student, or other health professional student that will be observing or involved in the sensitive examination for educational or training purposes was discussed with the Patient or Authorized Vice President Media Relations. The Patient or Authorized Vice President Media Relations has agreed to proceed with the sensitive examination. (Sensitive examination includes inspection and/or palpation of the breasts, pelvis, prostate and anorectal regions). EXAM: BP 128/74 Ht 5' 4.094 (1.63m) Wt 201 lb 3.2 oz (91.3kg) LMP 09/07/2024 BMI 34.43 kg/(m^2). GENERAL: pleasant, female in no apparent distress HEENT: Normocephalic and atraumatic NECK: Supple and full range of motion DERMATOLOGY: Normal and without lesions BREAST: soft, non-tender, symmetric, no dominant mass, normal nipple-areolar complex, no lymphadenopathy, no nipple discharge, and bilateral piercings CHEST: Normal inspiratory effort ABDOMEN: soft, non-tender, and no masses PELVIC: external genitalia normal, normal Bartholin's glands, urethra, Almanor's glands, no vulvar lesions, no cervical lesions, good vaginal support, normal appearing perineal body and perianal region. Increased white/yellow discharge present. Cervix friable BIMANUAL: uterus normal size, shape and consistency, no adnexal masses, non- tender, and no cervicalmotion tenderness RECTOVAGINAL: deferred. NEURO: alert and oriented x3,exam grossly non-focal EXTREMITIES: normal ASSESSMENT/PLAN: 1) Health maintenance: Pap done with HPV. Nutrition, exercise and routine health maintenance exams reviewed. HPV vaccine: discussed, not interested 2) Contraception: Nexplanon. Contraceptive options reviewed and information provided. 3) STD screening: Declined STD check. 4) YEAST/BV- collected and sent Follow up one year or sooner as needed Wendy Bennett APRN.CNM documented in [facility] encounterF[facility]06-[facility] Instructions* Patient Instructions* Tee Jamison MA - 09/22/2024 2:40 PM EDT NEXPLANON PATIENT EDUCATION You may remove dressing in 24 hours. Expect some bruising around insertion site. You may take over the counter pain medication (i.e. Tylenol, motrin, advil, etc) if you have discomfort. Call your provider with excessive bruising or pain. Continue to use condoms for STD prevention. You should use backup contraception for 7 days to prevent . documented in this encounterFulton [facility]06-19-2025 NoteHNO ID: [id number] Author: WENDY BENNETT APRN.CNM Service: ? Author Type: Light Adjuster Type: Progress Notes Filed: 09/22/2024 15:32 Note Text: Rufina is a 29 year old patient who presents for Nexplanon insertion. Patient's last menstrual period was 09/07/2024 (exact date). VITALS: BP 110/66 Wt 203 lb (92.1kg) LMP 09/07/2024 test: negative Nexplanon lot #: [id number] Exp date: 10/03/2026 [facility]: 66819-154-30 UNIVERSAL PROTOCOL / SAFETY CHECKLIST Procedure to be Performed: Nexplanon (contraceptive subdermal implant) insertion Sign In: A Moment of CARE was completed. Appropriate PPE (Personal Protective Equipment) worn by all providers involved with the procedure. Special equipment not required. Patient/Surrogate Stated/Verified: Patient name, Date of , Relevant allergies, and The intended procedure Time Out: Relevant labs, photos, and/or imaging studies have been reviewed. Intended patient and procedure match the source document(s) (e.g. consent, HANDP, associated studies [imaging, pathology]) match the intended patient and procedure. Consent obtained and matches the intended procedure. Yes. Correct side/site is not applicable. Medications required for this procedure are verified. Fire risk assessed and is not applicable. Implants: are not applicable. Sign Out: Specimens not collected. All instruments, equipment, possible retained foreign bodies are accounted for. Yes. The post-procedure plan of care has been communicated to the patient or surrogate. TECHNIQUE: Patient placed in supine position with left) bent at the elbow and placed over the head. Skin cleansed with betadine. 1mL of 1% lidocaine with 1:100,000 epi injected subQ along insertion site. Nexplanon felicia inserted under sterile technique. After insertion by the provider, the felicia was palpable under the skin by both patient and provider. Steristrips and sterile pressure dressing applied. AANDP: Nexplanon inserted without complications. The patient was instructed to remove the dressing after 24 hours. Advised to use backup contraception for 7 days. Wendy Bennett APRN.[facility]06-19-2025 History of Present illness Narrative* Wendy Bennett APRN.[facility] - 09/22/2024 2:39 PM EDT Rufina is a 29 year old patient who presents for Nexplanon insertion. Patient's last menstrual period was 09/07/2024 (exact date). VITALS: BP 110/66 Wt 203 lb (92.1kg) LMP 09/07/2024 test: negative Nexplanon lot #: [id number] Exp date: 10/03/2026 [facility]: [id number] UNIVERSAL PROTOCOL / SAFETY CHECKLIST Procedure to be Performed: Nexplanon (contraceptive subdermal implant) insertion Sign In: A Moment of CARE was completed. Appropriate PPE (Personal Protective Equipment) worn by all providers involved with the procedure. Special equipment not required. Patient/Surrogate Stated/Verified: Patient name, Date of , Relevant allergies, and The intended procedure Time Out: Relevant labs, photos, and/or imaging studies have been reviewed. Intended patient and procedure match the source document(s) (e.g. consent, H&P, associated studies [imaging, pathology]) match the intended patient and procedure. Consent obtained and matches the intended procedure. Yes. Correct side/site is not applicable. Medications required for this procedure are verified. Fire risk assessed and is not applicable. Implants: are not applicable. Sign Out: Specimens not collected. All instruments, equipment, possible retained foreign bodies are accounted for. Yes. The post-procedure plan of care has been communicated to the patient or surrogate. TECHNIQUE: Patient placed in supine position with left) bent at the elbow and placed over the head. Skin cleansed with betadine. 1mL of 1% lidocaine with 1:100,000 epi injected subQ along insertion site. Nexplanon felicia inserted under sterile technique. After insertion by the provider, the felicia was palpable under the skin by both patient and provider. Steristrips and sterile pressure dressing applied. A&P: Nexplanon inserted without complications. The patient was instructed to remove the dressing after 24 hours. Advised to use backup contraception for 7 days. Wendy Bennett APRN.CNM documented in this encounterFulton [facility]05-28-2025 NoteHNO ID: [id number] Author: WENDY BENNETT APRN.CNM Service: ? Author Type: Light Adjuster Type: Progress Notes Filed: 08/31/2024 12:46 Note Text: CONTRACEPTION Rufina Dickerson is a 29 year old No obstetric history on file. who presents today for contraception. Patient reported new Rx Mukesh started by PCP on 06/23/2024 reported LMP 07/17/2024 lasting 20 days. Patient's last menstrual period was 07/17/2024.. HPI: Dysmenorrhea Yes Heavy menses Yes Irregular menses Yes SUBJECTIVE Sexually active: Yes Smoking No Last PAP 03/19/2021 [facility]-US with +HPV. Method of control: oral contraceptives Mukesh unsatisfactory. Methods tried previously: Depo - Provea, Sprintec Liked Depo other than weight gain Patient currently interested in: oral contraceptives Interested in in the next 3 years? No Date of last test: Not applicable Relevant Past Medical History: OB History No obstetric history on file. PAST MEDICAL HISTORY Diagnosis Date Anxiety Depression Insomnia PCOS (polycystic ovarian syndrome) PAST SURGICAL HISTORY Procedure Laterality Date CYST/MOLE REMOVAL gaglean FAMILY HISTORY Problem Relation Age of Onset other (iron deficient) Mother Kidney Disease Father No Known Problems Sister Hypothyroidism Sister Diabetes Maternal Grandmother SOCIAL HISTORY Social History Tobacco Use Smoking status: Never Smokeless tobacco: Never Vaping Use Vaping status: Never Used Substance Use Topics Alcohol use: Yes Comment: socially Drug use: Yes Types: Marijuana PAST SURGICAL HISTORY Procedure Laterality Date CYST/MOLE REMOVAL gaglean Current Outpatient Medications Medication Sig citalopram (CELEXA) 40 mg tablet Take 1 tablet by mouth once daily. Drospirenone-Ethinyl Estradiol (MUKESH, 28,) 3-0.02 mg per tablet Take 1 tablet by mouth once daily. clonazePAM (KLONOPIN) 0.5 mg tablet Take 1 tablet by mouth two times a day as needed for anxiety for up to 7 days. (Patient not taking: Reported on 06/10/2024) metFORMIN (GLUCOPHAGE) 500 mg tablet Take 1 tablet by mouth daily with breakfast for 7 days, THEN 1 tablet two times a day with meals. No current facility-administered medications for this visit. Allergies As of Date: 08/31/2024 (No Known Allergies) Fully Assessed 08/02/2024 SENSITIVE EXAM: Sensitive exam not performed. OBJECTIVE: General Appearance: Well appearing, alert, in no acute distress, well-hydrated, well nourished. ASSESSMENT/PLAN: 1. Irregular periods 2. Personal history of contraception -Reviewed R/B/A to OCP, Mirena, Nuva Ring, and Nexplanon -Partner has vasectomy -Desires contraception to help regulate periods due to PCOS - Desires placement of Nexplanon- order placed - Due to PAP- hx of abnormal and colposcopy with NO follow up Wendy Bennett APRN.[facility]05-28-2025 History of Present illness Narrative* Wendy Bennett APRN.[facility] - 08/31/2024 9:58 AM EDT CONTRACEPTION Rufina Dickerson is a 29 year old No obstetric history on file. who presents today for contraception. Patient reported new Rx Mukesh started by PCP on 06/23/2024 reported LMP 07/17/2024 lasting 20 days. Patient's last menstrual period was 07/17/2024.. HPI: Dysmenorrhea Yes Heavy menses Yes Irregular menses Yes SUBJECTIVE Sexually active: Yes Smoking No Last PAP 03/19/2021 ASC-US with +HPV. Method of control: oral contraceptives Mukesh unsatisfactory. Methods tried previously: Depo - Provea, Sprintec Liked Depo other than weight gain Patient currently interested in: oral contraceptives Interested in in the next 3 years? No Date of last test: Not applicable Relevant Past Medical History: OB History No obstetric history on file. PAST MEDICAL HISTORY Diagnosis Date Anxiety Depression Insomnia PCOS (polycystic ovarian syndrome) PAST SURGICAL HISTORY Procedure Laterality Date CYST/MOLE REMOVAL gaglean FAMILY HISTORY Problem Relation Age of Onset other (iron deficient) Mother Kidney Disease Father No Known Problems Sister Hypothyroidism Sister Diabetes Maternal Grandmother SOCIAL HISTORY Social History Tobacco Use Smoking status: Never Smokeless tobacco: Never Vaping Use Vaping status: Never Used Substance Use Topics Alcohol use: Yes Comment: socially Drug use: Yes Types: Marijuana PAST SURGICAL HISTORY Procedure Laterality Date CYST/MOLE REMOVAL gaglean Current Outpatient Medications Medication Sig citalopram (CELEXA) 40 mg tablet Take 1 tablet by mouth once daily. Drospirenone-Ethinyl Estradiol (MUKESH, 28,) 3-0.02 mg per tablet Take 1 tablet by mouth once daily. clonazePAM (KLONOPIN) 0.5 mg tablet Take 1 tablet by mouth two times a day as needed for anxiety for up to 7 days. (Patient not taking: Reported on 06/10/2024) metFORMIN (GLUCOPHAGE) 500 mg tablet Take 1 tablet by mouth daily with breakfast for 7 days, THEN 1tablet two times a day with meals. No current facility-administered medications for this visit. Allergies As of Date: 08/31/2024 (No Known Allergies) Fully Assessed 08/02/2024 SENSITIVE EXAM: Sensitive exam not performed. OBJECTIVE: General Appearance: Well appearing, alert, in no acute distress, well-hydrated, well nourished. ASSESSMENT/PLAN: 1. Irregular periods 2. Personal history of contraception -Reviewed R/B/A to OCP, Mirena, Nuva Ring, and Nexplanon -Partner has vasectomy -Desires contraception to help regulate periods due to PCOS - Desires placement of Nexplanon- order placed - Due to PAP- hx of abnormal and colposcopy with NO follow up Wendy Bennett APRN.CNM documented in [facility]25 NoteHNO ID: [id number] Author: LOC BECKETT APRN.SLEEVE IRONER Service: ? Author Type: Nurse Practitioner Type: Progress Notes Filed: 08/02/2024 19:34 Note Text: [facility] Subjective Rufina Dickerson is a 29 year old female. Patient presents with: Vaginal Bleeding: X16 days, worse x3 days HPI Patient is a 29 year old female with a chronic history of PCOS that was put on mukesh control on June 10, she stopped her does last after talking to PCP who started her on the medication for a 5 day break and to start the pills tomorrow, she has been bleeding for 16 days but worsened when stopping her control pills. She does have a FORENSIC SCIENCE TECHNICIAN appointment but can't get established until august 31. NO fever, pelvic pain, she has felt tired and fatigued. She is sexually active, did take test when originally started that was negative. She is not soaking through pads in an hour, no dizziness or changes in vision. Review of Systems Constitutional: Negative for fatigue and fever. Genitourinary: Positive for menstrual problem and vaginal bleeding. Negative for dyspareunia, dysuria, flank pain, frequency, genital sores, pelvic pain, urgency, vaginal discharge and vaginal pain. Objective BP 121/80 Pulse 86 Temp 36.4 ?C (97.6 ?F) Resp 18 Wt 92.8 kg (204 lb 9.4 oz) LMP 07/17/2024 (Exact Date) SpO2 98% BMI 38.66 kg/m? PAST MEDICAL HISTORY Diagnosis Date Anxiety Depression Insomnia PCOS (polycystic ovarian syndrome) PAST SURGICAL HISTORY Procedure Laterality Date CYST/MOLE REMOVAL gaglean ALLERGIES Patient has no known allergies. MEDICATIONS metFORMIN (GLUCOPHAGE) 500 mg tablet Take 1 tablet by mouth daily with breakfast for 7 days, THEN 1 tablet two times a day with meals. citalopram (CELEXA) 20 mg tablet Take 0.5 tablets by mouth once daily for 7 days, THEN 1 tablet once daily. Drospirenone-Ethinyl Estradiol (MUKESH, 28,) 3-0.02 mg per tablet Take 1 tablet by mouth once daily. (Patient not taking: Reported on 08/02/2024) clonazePAM (KLONOPIN) 0.5 mg tablet Take 1 tablet by mouth two times a day as needed for anxiety for up to 7 days. (Patient not taking: Reported on 06/10/2024) FAMILY HISTORY Problem Relation Age of Onset other (iron deficient) Mother Kidney Disease Father No Known Problems Sister Hypothyroidism Sister Diabetes Maternal Grandmother Social History Tobacco Use Smoking status: Never Smokeless tobacco: Never Vaping Use Vaping status: Never Used Substance Use Topics Alcohol use: Yes Comment: socially Drug use: Yes Types: Marijuana Physical Exam Vitals reviewed. Constitutional: General: She is not in acute distress. Appearance: Normal appearance. She is not ill-appearing or toxic-appearing. Cardiovascular: Rate and Rhythm: Normal rate. Pulmonary: Effort: Pulmonary effort is normal. Breath sounds: Normal breath sounds. Abdominal: General: Abdomen is flat. Bowel sounds are normal. Tenderness: There is no abdominal tenderness. There is no right CVA tenderness, left CVA tenderness, guarding or rebound. Neurological: Mental Status: She is alert. {ASSESSMENT/PLAN: 1. Abnormal uterine bleeding - ICD9: 626.9, ICD10: N93.9 Discussed increased bleeding from the stop of birthcontrol pills for last 5 days, resume birthcontrol pills and follow up with FORENSIC SCIENCE TECHNICIAN scheduled appointment. Loc Beckett APRN.SLEEVE IRONER History and Record Review External record(s) reviewed: prior outpatient record. Findings from review of outpatient records: pcp plan of care for vaginal bleeding Differential Diagnoses - vaginal bleeding due to contraceptives is more likely for the following reason(s): suggested by HANDP Additional Tests or Interventions The following medication(s) were considered but not ordered: follow up with FORENSIC SCIENCE TECHNICIAN, discussed continue plan by pcp, not clinically indicated to change contraceptives at this time Disposition The patient was discharged. OTC Medications were advised: Tylenol and ibuprofen as needed. Patient is well appearing nontoxic in no acute distress. She presents with continued having vaginal bleeding from starting on mukesh control that is being medically managed by pcp. NO concerns for acute abdomen today of PID, pyelonephritis, sepsis, or acute dehydration. Patient has appointment on August 31, discussed Dr andrew snider accepting new patients and could be earlier appointment time (which is an [place] system) pt lived in [place] This is after hours, at 7pm unable to call office. 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 ER if worsening, patient verbalized understanding, in agreement with plan and discharged home. [facility]04-29-2025 History of Present illness Narrative* Loc Beckett APRN.SLEEVE IRONER - 08/02/2024 6:47 PM EDT [facility] Subjective Rufina Dickerson is a 29 year old female. Patient presents with: Vaginal Bleeding: X16 days, worse x3 days HPI Patient is a 29 year old female with a chronic history of PCOS that was put on mukesh control onJune 10, she stopped her does last after talking to PCP who started her on the medication for a 5 day break and to start the pills tomorrow, she has been bleeding for 16 days but worsened when stopping her control pills. She does have a FORENSIC SCIENCE TECHNICIAN appointment but can't get established until august 31. NO fever, pelvic pain, she has felt tired and fatigued. She is sexually active, did take test when originally started that was negative. She is not soaking through pads in an hour, no dizziness or changes in vision. Review of Systems Constitutional: Negative for fatigue and fever. Genitourinary: Positive for menstrual problem and vaginal bleeding. Negative for dyspareunia, dysuria, flank pain, frequency, genital sores, pelvic pain, urgency, vaginal discharge and vaginal pain. Objective BP 121/80 Pulse 86 Temp 36.4 C (97.6 F) Resp 18 Wt 92.8 kg (204 lb 9.4 oz) LMP 07/17/2024(Exact Date) SpO2 98% BMI 38.66 kg/m PAST MEDICAL HISTORY Diagnosis Date Anxiety Depression Insomnia PCOS (polycystic ovarian syndrome) PAST SURGICAL HISTORY Procedure Laterality Date CYST/MOLE REMOVAL gaglean ALLERGIES Patient has no known allergies. MEDICATIONS metFORMIN (GLUCOPHAGE) 500 mg tablet Take 1 tablet by mouth daily with breakfast for 7 days, THEN 1tablet two times a day with meals. citalopram (CELEXA) 20 mg tablet Take 0.5 tablets by mouth once daily for 7 days, THEN 1 tablet once daily. Drospirenone-Ethinyl Estradiol (MUKESH, 28,) 3-0.02 mg per tablet Take 1 tablet by mouth once daily. (Patient not taking: Reported on 08/02/2024) clonazePAM (KLONOPIN) 0.5 mg tablet Take 1 tablet by mouth two times a day as needed for anxiety for up to 7 days. (Patient not taking: Reported on 06/10/2024) FAMILY HISTORY Problem Relation Age of Onset other (iron deficient) Mother Kidney Disease Father No Known Problems Sister Hypothyroidism Sister Diabetes Maternal Grandmother Social History Tobacco Use Smoking status: Never Smokeless tobacco: Never Vaping Use Vaping status: Never Used Substance Use Topics Alcohol use: Yes Comment: socially Drug use: Yes Types: Marijuana Physical Exam Vitals reviewed. Constitutional: General: She is not in acute distress. Appearance: Normal appearance. She is not ill-appearing or toxic-appearing. Cardiovascular: Rate and Rhythm: Normal rate. Pulmonary: Effort: Pulmonary effort is normal. Breath sounds: Normal breath sounds. Abdominal: General: Abdomen is flat. Bowel sounds are normal. Tenderness: There is no abdominal tenderness. There is no right CVA tenderness, left CVA tenderness, guarding or rebound. Neurological: Mental Status: She is alert. {ASSESSMENT/PLAN: 1. Abnormal uterine bleeding - ICD9: 626.9, ICD10: N93.9 Discussed increased bleeding from the stop of birthcontrol pills for last 5 days, resume birthcontrol pills and follow up with FORENSIC SCIENCE TECHNICIAN scheduled appointment. Loc Beckett APRN.SLEEVE IRONER History and Record Review External record(s) reviewed: prior outpatient record. Findings from review of outpatient records: pcp plan of care for vaginal bleeding Differential Diagnoses - vaginal bleeding due to contraceptives is more likely for the following reason(s): suggested by H&P Additional Tests or Interventions The following medication(s) were considered but not ordered: follow up with FORENSIC SCIENCE TECHNICIAN, discussed continueplan by pcp, not clinically indicated to change contraceptives at this time Disposition The patient was discharged. OTC Medications were advised: Tylenol and ibuprofen as needed. Patient is well appearing nontoxic in no acute distress. She presents with continued having vaginalbleeding from starting on mukesh control that is being medically managed by pcp. NO concerns foracute abdomen today of PID, pyelonephritis, sepsis, or acute dehydration. Patient has appointment on August 31, discussed Dr andrew snider accepting new patients and could be earlier appointmenttime (which is an [place] system) pt lived in [place]. This is after hours, at 7pm unable to call office. 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 ER if worsening, patient verbalized understanding, in agreement with plan and discharged home. documented in [facility]04-[facility]25 NoteHNO ID: [id number] Author: MORE GALARZA DO Service: ? Author Type: Physician Type: Progress Notes Filed: 07/26/2024 19:41 Note Text: [facility] Medicine [place] More Galarza DO [address] [place] [address] Date of Evaluation: 07/15/2024 Patient Name: Rufina Dickerson : 1995 Chief Complaint: Patient presents with: Anxiety: Follow up for medication Feeling a little better Contraception: Would like to discuss changing control She would prefer to not have a period Subjective Ms. Dickerson is a 29 year old female who presents with the following complaint(s): The history is provided by the patient. No mind reader was used. Anxiety Pertinent negatives include no weakness. This is a chronic problem. The problem has been gradually improving (patient states that she is smiling more brother has commented that she seems happier.) since onset. Treatments tried: citalopram. The treatment provided significant relief. Review of Systems Constitutional: Negative for fatigue and unexpected weight change. HENT: Negative for nosebleeds. Eyes: Negative for redness and visual disturbance. Respiratory: Negative for apnea, cough and shortness of breath. Cardiovascular: Negative for chest pain, palpitations and leg swelling. Genitourinary: Negative for hematuria. Neurological: Negative for dizziness, weakness, light-headedness, numbness and headaches. Hematological: Does not bruise/bleed easily. Psychiatric/Behavioral: The patient is nervous/anxious. Denies feeling suicidal or any side effects with SSRI PAST MEDICAL HISTORY Diagnosis Date Anxiety Depression Insomnia PCOS (polycystic ovarian syndrome) PAST SURGICAL HISTORY Procedure Laterality Date CYST/MOLE REMOVAL gaglean FAMILY HISTORY Problem Relation Age of Onset other (iron deficient) Mother Kidney Disease Father No Known Problems Sister Hypothyroidism Sister Diabetes Maternal Grandmother Social History Tobacco Use Smoking status: Never Smokeless tobacco: Never Vaping Use Vaping status: Never Used Substance Use Topics Alcohol use: Yes Comment: socially Drug use: Yes Types: Marijuana Current Outpatient Medications Medication Sig Drospirenone-Ethinyl Estradiol (MUKESH, 28,) 3-0.02 mg per tablet Take 1 tablet by mouth once daily. metFORMIN (GLUCOPHAGE) 500 mg tablet Take 1 tablet by mouth daily with breakfast for 7 days, THEN 1 tablet two times a day with meals. citalopram (CELEXA) 20 mg tablet Take 0.5 tablets by mouth once daily for 7 days, THEN 1 tablet once daily. clonazePAM (KLONOPIN) 0.5 mg tablet Take 1 tablet by mouth two times a day as needed for anxiety for up to 7 days. (Patient not taking: Reported on 06/10/2024) No current facility-administered medications for this visit. I have confirmed and edited as necessary the past medical, family and social histories, HPI, and ROS obtained by others. Objective BP 100/80 Pulse 96 Wt 202 lb (91.6kg) SpO2 97% LMP 10/31/2015 Physical Exam Vitals and nursing note reviewed. Constitutional: General: She is not in acute distress. Appearance: Normal appearance. She is well-developed. She is obese. She is not ill-appearing. HENT: Head: Normocephalic. Nose: Nose normal. Mouth/Throat: Mouth: Mucous membranes are moist. Pharynx: Oropharynx is clear. Uvula midline. No oropharyngeal exudate or posterior oropharyngeal erythema. Eyes: General: Lids are normal. Vision grossly intact. Gaze aligned appropriately. No scleral icterus. Right eye: No discharge. Left eye: No discharge. Extraocular Movements: Extraocular movements intact. Conjunctiva/sclera: Conjunctivae normal. Pupils: Pupils are equal, round, and reactive to light. Neck: Thyroid: No thyroid mass, thyromegaly or thyroid tenderness. Vascular: No carotid bruit. Trachea: Trachea and phonation normal. Cardiovascular: Rate and Rhythm: Normal rate and regular rhythm. Pulses: Normal pulses. Heart sounds: Normal heart sounds. Pulmonary: Effort: Pulmonary effort is normal. Breath sounds: Normal breath sounds. Abdominal: General: Abdomen is flat. Bowel sounds are normal. Palpations: Abdomen is soft. Musculoskeletal: General: Normal range of motion. Right shoulder: Normal. Left shoulder: Normal. Cervical back: Normal, full passive range of motion without pain and neck supple. No tenderness. No spinous process tenderness. Thoracic back: Normal. Lumbar back: Normal. Right knee: Normal. Left knee: Normal. Right lower leg: No edema. Left lower leg: No edema. Lymphadenopathy: Cervical: No cervical adenopathy. Skin: General: Skin is warm and dry. Neurological: General: No focal deficit present. Mental Status: She is alert and oriented to person, place, and time. Mental status is at baseline. Sensory: Sensa (more content not included)...[facility] 07-15-2024 History of Present illness Narrative* More Galarza DO - 07/15/2024 4:08 PM EDT Images from the original note were not included. [facility] Troyn More Galarza DO [address] [place] [address] Date of Evaluation: 07/15/2024 Patient Name: Rufina Dickerson : 1995 Chief Complaint: Patient presents with: Anxiety: Follow up for medication Feeling a little better Contraception: Would like to discuss changing control She would prefer to not have a period Subjective Ms. Dickerson is a 29 year old female who presents with the following complaint(s): The history is provided by the patient. No mind reader was used. Anxiety Pertinent negatives include no weakness. This is a chronic problem. The problem has been gradually improving (patient states that she is smiling more brother has commented that she seems happier.) since onset. Treatments tried: citalopram. The treatment provided significant relief. Review of Systems Constitutional: Negative for fatigue and unexpected weight change. HENT: Negative for nosebleeds. Eyes: Negative for redness and visual disturbance. Respiratory: Negative for apnea, cough and shortness of breath. Cardiovascular: Negative for chest pain, palpitations and leg swelling. Genitourinary: Negative for hematuria. Neurological: Negative for dizziness, weakness, light-headedness, numbness and headaches. Hematological: Does not bruise/bleed easily. Psychiatric/Behavioral: The patient is nervous/anxious. Denies feeling suicidal or any side effects with SSRI PAST MEDICAL HISTORY Diagnosis Date Anxiety Depression Insomnia PCOS (polycystic ovarian syndrome) PAST SURGICAL HISTORY Procedure Laterality Date CYST/MOLE REMOVAL gaglean FAMILY HISTORY Problem Relation Age of Onset other (iron deficient) Mother Kidney Disease Father No Known Problems Sister Hypothyroidism Sister Diabetes Maternal Grandmother Social History Tobacco Use Smoking status: Never Smokeless tobacco: Never Vaping Use Vaping status: Never Used Substance Use Topics Alcohol use: Yes Comment: socially Drug use: Yes Types: Marijuana Current Outpatient Medications Medication Sig Drospirenone-Ethinyl Estradiol (MUKESH, 28,) 3-0.02 mg per tablet Take 1 tablet by mouth once daily. metFORMIN (GLUCOPHAGE) 500 mg tablet Take 1 tablet by mouth daily with breakfast for 7 days, THEN 1tablet two times a day with meals. citalopram (CELEXA) 20 mg tablet Take 0.5 tablets by mouth once daily for 7 days, THEN 1 tablet once daily. clonazePAM (KLONOPIN) 0.5 mg tablet Take 1 tablet by mouth two times a day as needed for anxiety for up to 7 days. (Patient not taking: Reported on 06/10/2024) No current facility-administered medications for this visit. I have confirmed and edited as necessary the past medical, family and social histories, HPI, and ROS obtained by others. Objective BP 100/80 Pulse 96 Wt 202 lb (91.6kg) SpO2 97% LMP 10/31/2015 Physical Exam Vitals and nursing note reviewed. Constitutional: General: She is not in acute distress. Appearance: Normal appearance. She is well-developed. She is obese. She is not ill-appearing. HENT: Head: Normocephalic. Nose: Nose normal. Mouth/Throat: Mouth: Mucous membranes are moist. Pharynx: Oropharynx is clear. Uvula midline. No oropharyngeal exudate or posterior oropharyngeal erythema. Eyes: General: Lids are normal. Vision grossly intact. Gaze aligned appropriately. No scleral icterus. Right eye: No discharge. Left eye: No discharge. Extraocular Movements: Extraocular movements intact. Conjunctiva/sclera: Conjunctivae normal. Pupils: Pupils are equal, round, and reactive to light. Neck: Thyroid: No thyroid mass, thyromegaly or thyroid tenderness. Vascular: No carotid bruit. Trachea: Trachea and phonation normal. Cardiovascular: Rate and Rhythm: Normal rate and regular rhythm. Pulses: Normal pulses. Heart sounds: Normal heart sounds. Pulmonary: Effort: Pulmonary effort is normal. Breath sounds: Normal breath sounds. Abdominal: General: Abdomen is flat. Bowel sounds are normal. Palpations: Abdomen is soft. Musculoskeletal: General: Normal range of motion. Right shoulder: Normal. Left shoulder: Normal. Cervical back: Normal, full passive range of motion without pain and neck supple. No tenderness. Nospinous process tenderness. Thoracic back: Normal. Lumbar back: Normal. Right knee: Normal. Left knee: Normal. Right lower leg: No edema. Left lower leg: No edema. Lymphadenopathy: Cervical: No cervical adenopathy. Skin: General: Skin is warm and dry. Neurological: General: No focal deficit present. Mental Status: She is alert and oriented to person, place, and time. Mental status is at baseline. Sensory: Sensation is intact. Motor: Motor function is intact. Psychiatric: Attention and Perception: Attention and perception normal. Mood and Affect: Mood normal. Speech: Speech normal. Behavior: Behavior normal. Thought Content: Thought content normal. Judgment: Judgment normal. Data Reviewed: No new labs ASSESSMENT/PLAN: 1. VIVIANA (generalized anxiety disorder) - ICD9: 300.02, ICD10: F41.1 (primary diagnosis) - Improving. Continue current medication. 2. Panic disorder - ICD9: 300.01, ICD10: F41.0 - Improving. Continue current medication. 3. Family history of polycystic kidney - ICD9: V18.61, ICD10: Z82.71 - Obtain US - US KIDNEY/BLADDER 4. Amenorrhea - ICD9: 626.0, ICD10: N91.2 - Refer to FORENSIC SCIENCE TECHNICIAN for further medication management. - CONSULT TO RETAIL RESET MERCHANDISER 5. Class 2 obesity with body mass index (BMI) of 38.0 to 38.9 in adult, unspecified obesity type, unspecified whether serious comorbidity present - ICD9: 278.00, V85.38, ICD10: E66.812, Z68.38 Return in about 6 months (around 01/14/2025) for medication follow up. More Galarza DO Attestation: Scribe Attestation: The patient is seen and examined by Dr. Galarza and the following reflects his/her service. Scribed by Beth Pastrana July 15, 2024 4:16 PMProvider Attestation: I, More Galarza DO personally performed the services described in this documentation. All medical record entries made by the scribe were at my direction and in my presence. I have reviewed the chart and discharge instructions (if applicable) and agree that the record reflects my personal per formance and is accurate and complete. Electronically Signed: More Galarza DO, July 15, 2024 4:29 PM documented in this encounterFulton [facility]03-07-2025 NoteHNO ID: [id number] Author: MORE GALARZA DO Service: ? Author Type: Physician Type: Progress Notes Filed: 06/20/2024 20:02 Note Text: [facility] Medicine [place] More Galarza DO [address] [place] [address] Date of Evaluation: 06/10/2024 Patient Name: Rufina Dickerson : 1995 Chief Complaint: Patient presents with: Anxiety: 1 week recheck. Patient states she stopped the clonazepam PCOS: Requesting control Results: Discuss recent labs Subjective Ms. Dickerson is a 29 year old female who presents with the following complaint(s): The history is provided by the patient. No mind reader was used. Anxiety Pertinent negatives include no weakness. This is a new problem. The current episode started more than 1 month ago. The problem has been gradually improving since onset. Treatments tried: Citalopram and Clonazepam. The treatment provided moderate (has stopped clonazepam, does not like the way it makes her feel- increased fatigue and sleepiness.) relief. Review of Systems Constitutional: Negative for fatigue and unexpected weight change. HENT: Negative for nosebleeds. Eyes: Negative for redness and visual disturbance. Respiratory: Negative for apnea, cough and shortness of breath. Cardiovascular: Negative for chest pain, palpitations and leg swelling. Genitourinary: Negative for hematuria. Neurological: Negative for dizziness, weakness, light-headedness, numbness and headaches. Hematological: Does not bruise/bleed easily. Psychiatric/Behavioral: The patient is nervous/anxious. PAST MEDICAL HISTORY Diagnosis Date Anxiety Depression Insomnia PCOS (polycystic ovarian syndrome) PAST SURGICAL HISTORY Procedure Laterality Date CYST/MOLE REMOVAL gaglean FAMILY HISTORY Problem Relation Age of Onset other (iron deficient) Mother Kidney Disease Father No Known Problems Sister Hypothyroidism Sister Diabetes Maternal Grandmother Social History Tobacco Use Smoking status: Never Smokeless tobacco: Never Vaping Use Vaping status: Never Used Substance Use Topics Alcohol use: Yes Comment: socially Drug use: Yes Types: Marijuana Current Outpatient Medications Medication Sig metFORMIN (GLUCOPHAGE) 500 mg tablet Take 1 tablet by mouth daily with breakfast for 7 days, THEN 1 tablet two times a day with meals. citalopram (CELEXA) 20 mg tablet Take 0.5 tablets by mouth once daily for 7 days, THEN 1 tablet once daily. Drospirenone-Ethinyl Estradiol (MUKESH, 28,) 3-0.02 mg per tablet Take 1 tablet by mouth once daily. clonazePAM (KLONOPIN) 0.5 mg tablet Take 1 tablet by mouth two times a day as needed for anxiety for up to 7 days. (Patient not taking: Reported on 06/10/2024) No current facility-administered medications for this visit. I have confirmed and edited as necessary the past medical, family and social histories, HPI, and ROS obtained by others. Objective BP 112/84 Pulse 85 Temp 98.4 Ht 5' 1 (1.55m) Wt 201 lb (91.2kg) SpO2 96% LMP 10/31/2015 BMI 38.00 kg/(m2). Physical Exam Vitals and nursing note reviewed. Constitutional: General: She is not in acute distress. Appearance: Normal appearance. She is well-developed. She is obese. She is not ill-appearing. HENT: Head: Normocephalic. Nose: Nose normal. Mouth/Throat: Pharynx: Uvula midline. Eyes: General: Lids are normal. Vision grossly intact. Gaze aligned appropriately. Extraocular Movements: Extraocular movements intact. Conjunctiva/sclera: Conjunctivae normal. Pupils: Pupils are equal, round, and reactive to light. Neck: Thyroid: No thyroid mass, thyromegaly or thyroid tenderness. Trachea: Trachea and phonation normal. Cardiovascular: Rate and Rhythm: Normal rate and regular rhythm. Pulses: Normal pulses. Heart sounds: Normal heart sounds. Pulmonary: Effort: Pulmonary effort is normal. Breath sounds: Normal breath sounds. Musculoskeletal: General: Normal range of motion. Right shoulder: Normal. Left shoulder: Normal. Cervical back: Normal, full passive range of motion without pain and neck supple. No spinous process tenderness. Thoracic back: Normal. Lumbar back: Normal. Right knee: Normal. Left knee: Normal. Right lower leg: No edema. Left lower leg: No edema. Skin: General: Skin is warm and dry. Neurological: General: No focal deficit present. Mental Status: She is alert and oriented to person, place, and time. Mental status is at baseline. Sensory: Sensation is intact. Motor: Motor function is intact. Psychiatric: Attention and Perception: Attention and perception normal. Mood and Affect: Mood is anxious. Speech: Speech normal. Behavior: Behavior normal. Thought Content: Thought content normal. Judgment: Judgment normal. Data Reviewed: Most recent labs ASSESSMENT/PLAN: 1. VIVIANA (genera (more content not included)...[facility] 06-10-2024 History of Present illness Narrative* More Galarza DO - 06/10/2024 2:48 PM EST Images from the original note were not included. [facility] More GalarzaDO [address] [place] [address] Date of Evaluation: 06/10/2024 Patient Name: Rufina Dickerson : 1995 Chief Complaint: Patient presents with: Anxiety: 1 week recheck. Patient states she stopped the clonazepam PCOS: Requesting control Results: Discuss recent labs Subjective Ms. Dickerson is a 29 year old female who presents with the following complaint(s): The history is provided by the patient. No mind reader was used. Anxiety Pertinent negatives include no weakness. This is a new problem. The current episode started more than 1 month ago. The problem has been gradually improving since onset. Treatments tried: Citalopram and Clonazepam. The treatment provided moderate (has stopped clonazepam, does not like the way it makes her feel- increased fatigue and sleepiness.) relief. Review of Systems Constitutional: Negative for fatigue and unexpected weight change. HENT: Negative for nosebleeds. Eyes: Negative for redness and visual disturbance. Respiratory: Negative for apnea, cough and shortness of breath. Cardiovascular: Negative for chest pain, palpitations and leg swelling. Genitourinary: Negative for hematuria. Neurological: Negative for dizziness, weakness, light-headedness, numbness and headaches. Hematological: Does not bruise/bleed easily. Psychiatric/Behavioral: The patient is nervous/anxious. PAST MEDICAL HISTORY Diagnosis Date Anxiety Depression Insomnia PCOS (polycystic ovarian syndrome) PAST SURGICAL HISTORY Procedure Laterality Date CYST/MOLE REMOVAL gaglean FAMILY HISTORY Problem Relation Age of Onset other (iron deficient) Mother Kidney Disease Father No Known Problems Sister Hypothyroidism Sister Diabetes Maternal Grandmother Social History Tobacco Use Smoking status: Never Smokeless tobacco: Never Vaping Use Vaping status: Never Used Substance Use Topics Alcohol use: Yes Comment: socially Drug use: Yes Types: Marijuana Current Outpatient Medications Medication Sig metFORMIN (GLUCOPHAGE) 500 mg tablet Take 1 tablet by mouth daily with breakfast for 7 days, THEN 1tablet two times a day with meals. citalopram (CELEXA) 20 mg tablet Take 0.5 tablets by mouth once daily for 7 days, THEN 1 tablet once daily. Drospirenone-Ethinyl Estradiol (MUKESH, 28,) 3-0.02 mg per tablet Take 1 tablet by mouth once daily. clonazePAM (KLONOPIN) 0.5 mg tablet Take 1 tablet by mouth two times a day as needed for anxiety for up to 7 days. (Patient not taking: Reported on 06/10/2024) No current facility-administered medications for this visit. I have confirmed and edited as necessary the past medical, family and social histories, HPI, and ROS obtained by others. Objective BP 112/84 Pulse 85 Temp 98.4 Ht 5' 1 (1.55m) Wt 201 lb (91.2kg) SpO2 96% LMP 10/31/2015 BMI 38.00 kg/(m^2). Physical Exam Vitals and nursing note reviewed. Constitutional: General: She is not in acute distress. Appearance: Normal appearance. She is well-developed. She is obese. She is not ill-appearing. HENT: Head: Normocephalic. Nose: Nose normal. Mouth/Throat: Pharynx: Uvula midline. Eyes: General: Lids are normal. Vision grossly intact. Gaze aligned appropriately. Extraocular Movements: Extraocular movements intact. Conjunctiva/sclera: Conjunctivae normal. Pupils: Pupils are equal, round, and reactive to light. Neck: Thyroid: No thyroid mass, thyromegaly or thyroid tenderness. Trachea: Trachea and phonation normal. Cardiovascular: Rate and Rhythm: Normal rate and regular rhythm. Pulses: Normal pulses. Heart sounds: Normal heart sounds. Pulmonary: Effort: Pulmonary effort is normal. Breath sounds: Normal breath sounds. Musculoskeletal: General: Normal range of motion. Right shoulder: Normal. Left shoulder: Normal. Cervical back: Normal, full passive range of motion without pain and neck supple. No spinous process tenderness. Thoracic back: Normal. Lumbar back: Normal. Right knee: Normal. Left knee: Normal. Right lower leg: No edema. Left lower leg: No edema. Skin: General: Skin is warm and dry. Neurological: General: No focal deficit present. Mental Status: She is alert and oriented to person, place, and time. Mental status is at baseline. Sensory: Sensation is intact. Motor: Motor function is intact. Psychiatric: Attention and Perception: Attention and perception normal. Mood and Affect: Mood is anxious. Speech: Speech normal. Behavior: Behavior normal. Thought Content: Thought content normal. Judgment: Judgment normal. Data Reviewed: Most recent labs ASSESSMENT/PLAN: 1. VIVIANA (generalized anxiety disorder) - ICD9: 300.02, ICD10: F41.1 (primary diagnosis) - Advised to continue Citalopram at this time still early to see max improvement. Advised can take 1/2 tablet of clonazepam if needed. - Refer to Behavioral health for further care - CONSULT BEHAVIORAL HEALTH 2. Panic disorder - ICD9: 300.01, ICD10: F41.0 - CONSULT BEHAVIORAL HEALTH 3. Amenorrhea - ICD9: 626.0, ICD10: N91.2 - Advised can start control if Preg test ordered is negative. - UA DIP,URINE HCG (POC) - HCG QUANTITATIVE 4. Encounter for initial prescription of contraceptive pills - ICD9: V25.01, ICD10: Z30.011 - RX for Mukesh given today. - discussed with patient on how to take OCP's. - counseled on benefits, risks and possible severe side effects of OCP's. - discussed need to use Condoms to help to prevent STD's including HIV etc. - DROSPIRENONE 3 MG-ETHINYL ESTRADIOL 0.02 MG TABLET Additional 35 min. 5. Class 2 obesity with body mass index (BMI) of 37.0 to 37.9 in adult, unspecified obesity type, unspecified whether serious comorbidity present - ICD9: 278.00, V85.37, ICD10: E66.812, Z68.37 Return if symptoms worsen or fail to improve, for medication follow up. More Galarza DO Attestation: Scribe Attestation: The patient is seen and examined by Dr. Galarza and the following reflects his/her service. Scribed by Beth Pastrana June 10, 2024 3:04 PMProvider Attestation: I, More Galarza DO personally performed the services described in this documentation. All medical record entries made by the scribe were at my direction and in my presence. I have reviewed the chart and discharge instructions (if applicable) and agree that the record reflects my personal per formance and is accurate and complete. Electronically Signed: More Galarza DO, June 10, 2024 3:17 PM documented in [facility] History of Present illness Narrative* Alesia Gilliland Tech - 06/07/2024 6:20 PM EST Radiology Service Progress Note PATIENT NAME: Rufina Dickerson DATE OF SERVICE: June 07, 2024 TIME: 6:24 PM PATIENT IDENTITY VERIFICATION COMPLETED USING TWO (2) IDENTIFIERS: Name and Date of confirmedby patient verbally. FALL SCREENING: Has the patient had 2 falls in the last year or 1 fall with injury or currently using an Ambulatory Assistive Device (Walker, Cane, Wheelchair, Crutches, etc.)? No PATIENT GENDER DATA: Assigned female at . status: : No status:NO. PATIENT RELEVANT IMPLANT DATA REVIEWED: Not Applicable PATIENT PRESENTS WITH AN IMPLANTABLE OR ATTACHED SENIOR PROGRAM PLANNER: No RADIOLOGY DEPARTMENT: General X-ray: Exam(s) Completed: Lower Extremity X- Ray(s): Ankle, Left PERIPHERAL IV DATA: Not applicable SIGNED BY: Fina Wells June 07, 2024 6:24 PM documented in this encounterFulton [facility]03-04-2025 NoteHNO ID: [id number] Author: ALESIA GILLILAND Tech Service: ? Author Type: Technologist Type: Progress Notes Filed: 06/07/2024 18:32 Note Text: Radiology Service Progress Note PATIENT NAME: Rufina Dickerson DATE OF SERVICE: June 07, 2024 TIME: 6:24 PM PATIENT IDENTITY VERIFICATION COMPLETED USING TWO (2) IDENTIFIERS: Name and Date of confirmed by patient verbally. FALL SCREENING: Has the patient had 2 falls in the last year or 1 fall with injury or currently using an Ambulatory Assistive Device (Walker, Cane, Wheelchair, Crutches, etc.)? No PATIENT GENDER DATA: Assigned female at . status: : No status: NO. PATIENT RELEVANT IMPLANT DATA REVIEWED: Not Applicable PATIENT PRESENTS WITH AN IMPLANTABLE OR ATTACHED SENIOR PROGRAM PLANNER: No RADIOLOGY DEPARTMENT: General X-ray: Exam(s) Completed: Lower Extremity X-Ray(s): Ankle, Left PERIPHERAL IV DATA: Not applicable SIGNED BY: Fina Wells June 07, 2024 6:24 [facility]03-04-2025 NoteHNO ID: [id number] Author: ANUSHA GUILLORY APRN.[facility] Service: ? Author Type: Nurse Practitioner Type: Progress Notes Filed: 06/07/2024 19:42 Note Text: This note was created using [employer]. Subjective Rufina Dickerson is a 29 year old female. 29 year old female with PCOS and anxiety present for ankle pain Acute onset 06/04/24 Left ankle Endorses that her foot fell asleep, As she went to stand [place] it crack and twisted Denies head injury Denies LOC Denies neck or back pain Denies abdominal pain Denies N/V/D +swelling +pain with walking The history is provided by the patient. No mind reader was used. Musculoskeletal Problem This is a new problem. The current episode started in the past 7 days. The problem occurs constantly. The problem has been unchanged. Pertinent negatives include no abdominal pain, anorexia, arthralgias, change in bowel habit, chest pain, chills, congestion, coughing, diaphoresis, fatigue, fever, headaches, joint swelling, myalgias, nausea, neck pain, numbness, rash, sore throat, swollen glands, urinary symptoms, vertigo, visual change, vomiting or weakness. Exacerbated by: walking, touching , activity. She has tried nothing for the symptoms. The treatment provided no relief. PAST MEDICAL HISTORY Diagnosis Date Anxiety Depression Insomnia PCOS (polycystic ovarian syndrome) PAST SURGICAL HISTORY Procedure Laterality Date CYST/MOLE REMOVAL gaglean ALLERGIES Patient has no known allergies. MEDICATIONS clonazePAM (KLONOPIN) 0.5 mg tablet Take 1 tablet by mouth two times a day as needed for anxiety for up to 7 days. metFORMIN (GLUCOPHAGE) 500 mg tablet Take 1 tablet by mouth daily with breakfast for 7 days, THEN 1 tablet two times a day with meals. citalopram (CELEXA) 20 mg tablet Take 0.5 tablets by mouth once daily for 7 days, THEN 1 tablet once daily. FAMILY HISTORY Problem Relation Age of Onset other (iron deficient) Mother Kidney Disease Father No Known Problems Sister Hypothyroidism Sister Diabetes Maternal Grandmother Social History Tobacco Use Smoking status: Never Smokeless tobacco: Never Vaping Use Vaping status: Never Used Substance Use Topics Alcohol use: Yes Comment: socially Drug use: Yes Types: Marijuana Review of Systems Constitutional: Negative for chills, diaphoresis, fatigue and fever. HENT: Negative for congestion and sore throat. Respiratory: Negative for cough. Cardiovascular: Negative for chest pain. Gastrointestinal: Negative for abdominal pain, anorexia, change in bowel habit, nausea and vomiting. Musculoskeletal: Negative for arthralgias, joint swelling, myalgias and neck pain. Left ankle pain Skin: Negative for rash. Allergic/Immunologic: Negative for environmental allergies, food allergies and immunocompromised state. Neurological: Negative for vertigo, weakness, numbness and headaches. Hematological: Negative for adenopathy. Does not bruise/bleed easily. Psychiatric/Behavioral: Negative for agitation and behavioral problems. Objective BP 124/70 Pulse 112 Temp 36.1 ?C (96.9 ?F) Resp 16 Wt 90.8 kg (200 lb 2.8 oz) LMP 10/31/2015 SpO2 97% BMI 33.31 kg/m? Physical Exam Vitals and nursing note reviewed. Constitutional: General: She is not in acute distress. Appearance: Normal appearance. She is normal weight. She is not ill-appearing, toxic-appearing or diaphoretic. HENT: Head: Normocephalic and atraumatic. Right Ear: Ear canal and external ear normal. Left Ear: Ear canal and external ear normal. Nose: Nose normal. No congestion or rhinorrhea. Mouth/Throat: Mouth: Mucous membranes are moist. Pharynx: No oropharyngeal exudate or posterior oropharyngeal erythema. Eyes: General: Right eye: No discharge. Left eye: No discharge. Extraocular Movements: Extraocular movements intact. Conjunctiva/sclera: Conjunctivae normal. Pupils: Pupils are equal, round, and reactive to light. Cardiovascular: Rate and Rhythm: Normal rate and regular rhythm. Pulses: Normal pulses. Heart sounds: Normal heart sounds. No murmur heard. No friction rub. Pulmonary: Effort: Pulmonary effort is normal. No respiratory distress. Breath sounds: Normal breath sounds. No stridor. No wheezing, rhonchi or rales. Chest: Chest wall: No tenderness. Abdominal: General: Abdomen is flat. There is no distension. Palpations: Abdomen is soft. There is no mass. Tenderness: There is no abdominal tenderness. There is no right CVA tenderness, left CVA tenderness, guarding or rebound. Hernia: No hernia is present. Musculoskeletal: General: Swelling, tenderness and signs of injury present. No deformity. Normal range of motion. Cervical back: Normal range of motion and neck supple. No rigidity. Right lower leg: No edema. Left lower leg: No edema. Comments: Ambulatory Negative tibial plateau TTP Left lateral malleolus with TTP +scant ecchy (more content not included)...[facility]03-04-2025 History of Present illness Narrative* Anusha Guillory APRN.[facility] - 06/07/2024 6:12 PM EST This note was created using NoteWriter. Subjective Rufina Dickerson is a 29 year old female. 29 year old female with PCOS and anxiety present for ankle pain Acute onset 06/04/24 Left ankle Endorses that her foot fell asleep, As she went to stand [place] it crack and twisted Denies head injury Denies LOC Denies neck or back pain Denies abdominal pain Denies N/V/D +swelling +pain with walking The history is provided by the patient. No mind reader was used. Musculoskeletal Problem This is a new problem. The current episode started in the past 7 days. The problem occurs constantly. The problem has been unchanged. Pertinent negatives include no abdominal pain, anorexia, arthralgias, change in bowel habit, chest pain, chills, congestion, coughing, diaphoresis, fatigue, fever, headaches, joint swelling, myalgias, nausea, neck pain, numbness, rash, sore throat, swollen glands, urinary symptoms, vertigo, visual change, vomiting or weakness. Exacerbated by: walking, touching , activity. She has tried nothing for the symptoms. The treatment provided no relief. PAST MEDICAL HISTORY Diagnosis Date Anxiety Depression Insomnia PCOS (polycystic ovarian syndrome) PAST SURGICAL HISTORY Procedure Laterality Date CYST/MOLE REMOVAL gaglean ALLERGIES Patient has no known allergies. MEDICATIONS clonazePAM (KLONOPIN) 0.5 mg tablet Take 1 tablet by mouth two times a day as needed for anxiety for up to 7 days. metFORMIN (GLUCOPHAGE) 500 mg tablet Take 1 tablet by mouth daily with breakfast for 7 days, THEN 1tablet two times a day with meals. citalopram (CELEXA) 20 mg tablet Take 0.5 tablets by mouth once daily for 7 days, THEN 1 tablet once daily. FAMILY HISTORY Problem Relation Age of Onset other (iron deficient) Mother Kidney Disease Father No Known Problems Sister Hypothyroidism Sister Diabetes Maternal Grandmother Social History Tobacco Use Smoking status: Never Smokeless tobacco: Never Vaping Use Vaping status: Never Used Substance Use Topics Alcohol use: Yes Comment: socially Drug use: Yes Types: Marijuana Review of Systems Constitutional: Negative for chills, diaphoresis, fatigue and fever. HENT: Negative for congestion and sore throat. Respiratory: Negative for cough. Cardiovascular: Negative for chest pain. Gastrointestinal: Negative for abdominal pain, anorexia, change in bowel habit, nausea and vomiting. Musculoskeletal: Negative for arthralgias, joint swelling, myalgias and neck pain. Left ankle pain Skin: Negative for rash. Allergic/Immunologic: Negative for environmental allergies, food allergies and immunocompromised state. Neurological: Negative for vertigo, weakness, numbness and headaches. Hematological: Negative for adenopathy. Does not bruise/bleed easily. Psychiatric/Behavioral: Negative for agitation and behavioral problems. Objective BP 124/70 Pulse 112 Temp 36.1 C (96.9 F) Resp 16 Wt 90.8 kg (200 lb 2.8 oz) LMP 10/31/2015 SpO2 97% BMI 33.31 kg/m Physical Exam Vitals and nursing note reviewed. Constitutional: General: She is not in acute distress. Appearance: Normal appearance. She is normal weight. She is not ill-appearing, toxic-appearing or diaphoretic. HENT: Head: Normocephalic and atraumatic. Right Ear: Ear canal and external ear normal. Left Ear: Ear canal and external ear normal. Nose: Nose normal. No congestion or rhinorrhea. Mouth/Throat: Mouth: Mucous membranes are moist. Pharynx: No oropharyngeal exudate or posterior oropharyngeal erythema. Eyes: General: Right eye: No discharge. Left eye: No discharge. Extraocular Movements: Extraocular movements intact. Conjunctiva/sclera: Conjunctivae normal. Pupils: Pupils are equal, round, and reactive to light. Cardiovascular: Rate and Rhythm: Normal rate and regular rhythm. Pulses: Normal pulses. Heart sounds: Normal heart sounds. No murmur heard. No friction rub. Pulmonary: Effort: Pulmonary effort is normal. No respiratory distress. Breath sounds: Normal breath sounds. No stridor. No wheezing, rhonchi or rales. Chest: Chest wall: No tenderness. Abdominal: General: Abdomen is flat. There is no distension. Palpations: Abdomen is soft. There is no mass. Tenderness: There is no abdominal tenderness. There is no right CVA tenderness, left CVA tenderness, guarding or rebound. Hernia: No hernia is present. Musculoskeletal: General: Swelling, tenderness and signs of injury present. No deformity. Normal range of motion. Cervical back: Normal range of motion and neck supple. No rigidity. Right lower leg: No edema. Left lower leg: No edema. Comments: Ambulatory Negative tibial plateau TTP Left lateral malleolus with TTP +scant ecchymosis Scant swelling Skin intact Negative Farris +neuro +sensation Lymphadenopathy: Cervical: No cervical adenopathy. Skin: General: Skin is warm and dry. Capillary Refill: Capillary refill takes less than 2 seconds. Coloration: Skin is not jaundiced or pale. Findings: No bruising, erythema, lesion or rash. Neurological: General: No focal deficit present. Mental Status: She is alert and oriented to person, place, and time. Cranial Nerves: No cranial nerve deficit. Sensory: No sensory deficit. Motor: No weakness. Coordination: Coordination normal. Gait: Gait normal. Psychiatric: Mood and Affect: Mood normal. Behavior: Behavior normal. Thought Content: Thought content normal. Judgment: Judgment normal. Assessment and Plan ASSESSMENT/PLAN: 1. Acute left ankle pain - ICD9: 719.47, ICD10: M25.572 (primary diagnosis) X 3 days Occurred related to fall No red flags Neuro intact Sensation intact - XR ANKLE GENERAL 3V AP/LAT/OBL LEFT-negative for acute process F/U with PCP for continue sx 2. Sprain of ligament of left ankle, initial encounter - ICD9: 845.00, ICD10: S93.402A RICE therapy OTC analgesics Swapnil wrap F/U with PCP for continue sx 3. Fall, initial encounter - ICD9: E888.9, ICD10: W19.XXXA Mechanical No red flags No head injury Anusha Guillory APRN.[facility] documented in this encounterFulton [facility]02-27-2025 NoteHNO ID: [id number] Author: MORE GALARZA DO Service: ? Author Type: Physician Type: Progress Notes Filed: 06/08/2024 17:44 Note Text: [facility] Medicine [place] More Galarza DO [address] [place] [address] Date of Evaluation: 06/02/2024 Patient Name: Rufina Dickerson : 1995 Chief Complaint: Patient presents with: Panic attacks: Had one Thursday and Thursday - felt this way around 4 hours Chest Pain: Chest gets very tight and difficult to breathe Anxiety: Very fidgety Dizziness Subjective Ms. Dickerson is a 29 year old female who presents with the following complaint(s): The history is provided by the patient. Anxiety Primary symptoms comment: chest pain, sob, increased anxiety, dizziness , feeling of doom. This is a chronic problem. The problem has been gradually worsening (with new increased panic attacks) since onset. Review of Systems Constitutional: Negative for fatigue and unexpected weight change. HENT: Negative for nosebleeds. Eyes: Negative for redness and visual disturbance. Respiratory: Negative for apnea, cough and shortness of breath. Cardiovascular: Negative for chest pain, palpitations and leg swelling. Genitourinary: Negative for hematuria. Neurological: Negative for dizziness, light-headedness, numbness and headaches. Hematological: Does not bruise/bleed easily. Psychiatric/Behavioral: The patient is not nervous/anxious. PAST MEDICAL HISTORY Diagnosis Date Anxiety Depression Insomnia PCOS (polycystic ovarian syndrome) PAST SURGICAL HISTORY Procedure Laterality Date CYST/MOLE REMOVAL gaglean FAMILY HISTORY Problem Relation Age of Onset other (iron deficient) Mother Kidney Disease Father No Known Problems Sister Hypothyroidism Sister Diabetes Maternal Grandmother Social History Tobacco Use Smoking status: Never Smokeless tobacco: Never Vaping Use Vaping status: Never Used Substance Use Topics Alcohol use: Yes Comment: socially Drug use: Yes Types: Marijuana Current Outpatient Medications Medication Sig metFORMIN (GLUCOPHAGE) 500 mg tablet Take 1 tablet by mouth daily with breakfast for 7 days, THEN 1 tablet two times a day with meals. citalopram (CELEXA) 20 mg tablet Take 0.5 tablets by mouth once daily for 7 days, THEN 1 tablet once daily. clonazePAM (KLONOPIN) 0.5 mg tablet Take 1 tablet by mouth two times a day as needed for anxiety for up to 7 days. No current facility-administered medications for this visit. I have confirmed and edited as necessary the past medical, family and social histories, HPI, and ROS obtained by others. Objective BP 90/60 Pulse 72 Ht 5' 5 (1.65m) Wt 200 lb (90.7kg) SpO2 96% LMP 10/31/2015 BMI 33.28 kg/(m2). Physical Exam Vitals and nursing note reviewed. Constitutional: General: She is not in acute distress. Appearance: Normal appearance. She is well-developed. She is obese. She is not ill-appearing. HENT: Head: Normocephalic. Nose: Nose normal. Mouth/Throat: Pharynx: Uvula midline. Eyes: General: Lids are normal. Vision grossly intact. Gaze aligned appropriately. Extraocular Movements: Extraocular movements intact. Conjunctiva/sclera: Conjunctivae normal. Pupils: Pupils are equal, round, and reactive to light. Neck: Thyroid: No thyroid mass, thyromegaly or thyroid tenderness. Trachea: Trachea and phonation normal. Cardiovascular: Rate and Rhythm: Regular rhythm. Pulses: Normal pulses. Heart sounds: Normal heart sounds. Pulmonary: Effort: Pulmonary effort is normal. Breath sounds: Normal breath sounds. Musculoskeletal: General: Normal range of motion. Right shoulder: Normal. Left shoulder: Normal. Cervical back: Normal, full passive range of motion without pain and neck supple. No spinous process tenderness. Thoracic back: Normal. Lumbar back: Normal. Right knee: Normal. Left knee: Normal. Right lower leg: No edema. Left lower leg: No edema. Skin: General: Skin is warm and dry. Neurological: General: No focal deficit present. Mental Status: She is alert and oriented to person, place, and time. Mental status is at baseline. Sensory: Sensation is intact. Motor: Motor function is intact. Psychiatric: Attention and Perception: Attention and perception normal. Mood and Affect: Mood is anxious. Speech: Speech normal. Behavior: Behavior normal. Thought Content: Thought content normal. Judgment: Judgment normal. Data Reviewed: No new labs Advised to get blood work previously ordered. ASSESSMENT/PLAN: 1. VIVIANA (generalized anxiety disorder) - ICD9: 300.02, ICD10: F41.1 (primary diagnosis) - Continue SSRI - Start Clonazepam as needed- advised to not drink alcohol, drive, or work with medication. Return to work note given if patient wants to take Thursday off to take medication and se (more content not included)...[facility]02-27-2025 History of Present illness Narrative* More Galarza DO - 06/02/2024 4:27 PM EST Images from the original note were not included. [facility] Medicine Uvaldeevangelsit Galarza DO [address] [place] [address] Date of Evaluation: 06/02/2024 Patient Name: Rufina Dickerson : 1995 Chief Complaint: Patient presents with: Panic attacks: Had one Thursday and Thursday - felt this way around 4 hours Chest Pain: Chest gets very tight and difficult to breathe \ Anxiety: Very fidgety Dizziness Subjective Ms. Dickerson is a 29 year old female who presents with the following complaint(s): The history is provided by the patient. Anxiety Primary symptoms comment: chest pain, sob, increased anxiety, dizziness , feeling of doom. This is a chronic problem. The problem has been gradually worsening (with new increased panic attacks) sinceonset. Review of Systems Constitutional: Negative for fatigue and unexpected weight change. HENT: Negative for nosebleeds. Eyes: Negative for redness and visual disturbance. Respiratory: Negative for apnea, cough and shortness of breath. Cardiovascular: Negative for chest pain, palpitations and leg swelling. Genitourinary: Negative for hematuria. Neurological: Negative for dizziness, light-headedness, numbness and headaches. Hematological: Does not bruise/bleed easily. Psychiatric/Behavioral: The patient is not nervous/anxious. PAST MEDICAL HISTORY Diagnosis Date Anxiety Depression Insomnia PCOS (polycystic ovarian syndrome) PAST SURGICAL HISTORY Procedure Laterality Date CYST/MOLE REMOVAL tessy FAMILY HISTORY Problem Relation Age of Onset other (iron deficient) Mother Kidney Disease Father No Known Problems Sister Hypothyroidism Sister Diabetes Maternal Grandmother Social History Tobacco Use Smoking status: Never Smokeless tobacco: Never Vaping Use Vaping status: Never Used Substance Use Topics Alcohol use: Yes Comment: socially Drug use: Yes Types: Marijuana Current Outpatient Medications Medication Sig metFORMIN (GLUCOPHAGE) 500 mg tablet Take 1 tablet by mouth daily with breakfast for 7 days, THEN 1tablet two times a day with meals. citalopram (CELEXA) 20 mg tablet Take 0.5 tablets by mouth once daily for 7 days, THEN 1 tablet once daily. clonazePAM (KLONOPIN) 0.5 mg tablet Take 1 tablet by mouth two times a day as needed for anxiety for up to 7 days. No current facility-administered medications for this visit. I have confirmed and edited as necessary the past medical, family and social histories, HPI, and ROS obtained by others. Objective BP 90/60 Pulse 72 Ht 5' 5 (1.65m) Wt 200 lb (90.7kg) SpO2 96% LMP 10/31/2015 BMI 33.28kg/(m^2). Physical Exam Vitals and nursing note reviewed. Constitutional: General: She is not in acute distress. Appearance: Normal appearance. She is well-developed. She is obese. She is not ill-appearing. HENT: Head: Normocephalic. Nose: Nose normal. Mouth/Throat: Pharynx: Uvula midline. Eyes: General: Lids are normal. Vision grossly intact. Gaze aligned appropriately. Extraocular Movements: Extraocular movements intact. Conjunctiva/sclera: Conjunctivae normal. Pupils: Pupils are equal, round, and reactive to light. Neck: Thyroid: No thyroid mass, thyromegaly or thyroid tenderness. Trachea: Trachea and phonation normal. Cardiovascular: Rate and Rhythm: Regular rhythm. Pulses: Normal pulses. Heart sounds: Normal heart sounds. Pulmonary: Effort: Pulmonary effort is normal. Breath sounds: Normal breath sounds. Musculoskeletal: General: Normal range of motion. Right shoulder: Normal. Left shoulder: Normal. Cervical back: Normal, full passive range of motion without pain and neck supple. No spinous process tenderness. Thoracic back: Normal. Lumbar back: Normal. Right knee: Normal. Left knee: Normal. Right lower leg: No edema. Left lower leg: No edema. Skin: General: Skin is warm and dry. Neurological: General: No focal deficit present. Mental Status: She is alert and oriented to person, place, and time. Mental status is at baseline. Sensory: Sensation is intact. Motor: Motor function is intact. Psychiatric: Attention and Perception: Attention and perception normal. Mood and Affect: Mood is anxious. Speech: Speech normal. Behavior: Behavior normal. Thought Content: Thought content normal. Judgment: Judgment normal. Data Reviewed: No new labs Advised to get blood work previously ordered. ASSESSMENT/PLAN: 1. VIVIANA (generalized anxiety disorder) - ICD9: 300.02, ICD10: F41.1 (primary diagnosis) - Continue SSRI - Start Clonazepam as needed- advised to not drink alcohol, drive, or work with medication. Return to work note given if patient wants to take Thursday off to take medication and see how she tolerates. - Refer to Behavioral health for counseling. 35 min spent in discussion about panic and anxiety, new medications. - CONSULT BEHAVIORAL HEALTH - CLONAZEPAM 0.5 MG TABLET 2. Panic disorder - ICD9: 300.01, ICD10: F41.0 - CLONAZEPAM 0.5 MG TABLET 3. Class 1 obesity with body mass index (BMI) of 33.0 to 33.9 in adult, unspecified obesity type, unspecified whether serious comorbidity present - ICD9: 278.00, V85.33, ICD10: E66.811, Z68.33 PDMP website checked and validated. All prescriptions have been APPROPRIATELY filled. No suspiciousactivity was identified. Return in about 1 week (around 06/09/2024) for medication follow up. Attestation: Scribe Attestation: The patient is seen and examined by Dr. Galarza and the following reflects his/her service. Scribed by Beth Pastrana June 02, 2024 4:27 PMProvider Attestation: I, More Galarza DO personally performed the services described in this documentation. All medical record entries made by the carlosibe were at my direction and in my presence. I have reviewed the chart and discharge instructions (if applicable) and agree that the record reflects my personal per formance and is accurate and complete. Electronically Signed: More Galarza DO,June 02, 2024 5:43 PM documented in [facility] Telephone encounter Note * Telephone Encounter - Shannan Rodriguez LPN - 05/31/2024 2:34 PM EST The patient has been scheduled for 06/02/24. This was the soonest the patient was able to come in. [facility]02-25-2025 Miscellaneous Notes* Telephone Encounter - Shannan Rodriguez LPN - 05/31/2024 2:34 PM EST The patient has been scheduled for 06/02/24. This was the soonest the patient was able to come in. documented in this encounterFulton [facility]02-20-2025 NoteHNO ID: [id number] Author: MORE GALARZA DO Service: ? Author Type: Physician Type: Progress Notes Filed: 05/29/2024 15:50 Note Text: [facility] Medicine Nav Galarza DO [address] [place] [address] Date of Evaluation: 05/26/2024 Patient Name: Rufina Dickerson : 1995 Chief Complaint: Patient presents with: Establish Care Depression Sleep Problem PCOS Subjective Ms. Dickerson is a 29 year old female who presents with the following complaint(s): The history is provided by the patient. No mind reader was used. Depression Pertinent negatives include no weakness. This is a chronic problem. The current episode started more than 1 year ago. The problem is unchanged. Past treatments include nothing. Anxiety Pertinent negatives include no weakness. This is a chronic problem. The current episode started more than 1 year ago. The problem is unchanged. Past treatments include nothing. Review of Systems Constitutional: Negative for fatigue and unexpected weight change. HENT: Negative for nosebleeds. Eyes: Negative for redness and visual disturbance. Respiratory: Negative for apnea, cough and shortness of breath. Cardiovascular: Negative for chest pain, palpitations and leg swelling. Genitourinary: Negative for hematuria. Neurological: Negative for dizziness, weakness, light-headedness, numbness and headaches. Hematological: Does not bruise/bleed easily. Psychiatric/Behavioral: Positive for depression, dysphoric mood and sleep disturbance. Suicidal ideas: has had thoughts in the past but never intentions or plans..The patient is nervous/anxious. PAST MEDICAL HISTORY Diagnosis Date Anxiety Depression Insomnia PCOS (polycystic ovarian syndrome) PAST SURGICAL HISTORY Procedure Laterality Date CYST/MOLE REMOVAL gaglean FAMILY HISTORY Problem Relation Age of Onset other (iron deficient) Mother Kidney Disease Father No Known Problems Sister Hypothyroidism Sister Diabetes Maternal Grandmother Social History Tobacco Use Smoking status: Never Smokeless tobacco: Never Vaping Use Vaping status: Never Used Substance Use Topics Alcohol use: Yes Comment: socially Drug use: Yes Types: Marijuana No current outpatient medications on file. No current facility-administered medications for this visit. I have confirmed and edited as necessary the past medical, family and social histories, HPI, and ROS obtained by others. Objective BP 120/84 Pulse 81 Temp 98.6 Ht 5' 5 (1.65m) Wt 200 lb (90.7kg) SpO2 98% LMP 10/31/2015 BMI 33.28 kg/(m2). Physical Exam Vitals and nursing note reviewed. Constitutional: General: She is not in acute distress. Appearance: Normal appearance. She is well-developed. She is obese. She is not ill-appearing. HENT: Head: Normocephalic. Nose: Nose normal. Mouth/Throat: Mouth: Mucous membranes are moist. Pharynx: Oropharynx is clear. Uvula midline. No oropharyngeal exudate or posterior oropharyngeal erythema. Eyes: General: Lids are normal. Vision grossly intact. Gaze aligned appropriately. No scleral icterus. Right eye: No discharge. Left eye: No discharge. Extraocular Movements: Extraocular movements intact. Conjunctiva/sclera: Conjunctivae normal. Pupils: Pupils are equal, round, and reactive to light. Neck: Thyroid: No thyroid mass, thyromegaly or thyroid tenderness. Vascular: No carotid bruit. Trachea: Trachea and phonation normal. Cardiovascular: Rate and Rhythm: Normal rate and regular rhythm. Pulses: Normal pulses. Heart sounds: Normal heart sounds. Pulmonary: Effort: Pulmonary effort is normal. Breath sounds: Normal breath sounds. Abdominal: General: Abdomen is flat. Bowel sounds are normal. Palpations: Abdomen is soft. Musculoskeletal: General: Normal range of motion. Right shoulder: Normal. Left shoulder: Normal. Cervical back: Normal, full passive range of motion without pain and neck supple. No tenderness. No spinous process tenderness. Thoracic back: Normal. Lumbar back: Normal. Right knee: Normal. Left knee: Normal. Right lower leg: No edema. Left lower leg: No edema. Lymphadenopathy: Cervical: No cervical adenopathy. Skin: General: Skin is warm and dry. Comments: Slight facial hair to face Neurological: General: No focal deficit present. Mental Status: She is alert and oriented to person, place, and time. Mental status is at baseline. Sensory: Sensation is intact. Motor: Motor function is intact. Psychiatric: Attention and Perception: Attention and perception normal. Mood and Affect: Mood is anxious. Speech: Speech normal. Behavior: Behavior normal. Thought Content: Thought content normal. Judgment: Judgment normal. Data Reviewed: No new labs ASSESSMENT/PLAN: 1. Anxiety with depression - (more content not included)...[facility]02-20-2025 History of Present illness Narrative* More Galarza DO - 05/26/2024 2:39 PM EST Images from the original note were not included. [facility] [place] More Galarza DO [address] [place] [address] Date of Evaluation: 05/26/2024 Patient Name: Rufina Dickerson : 1995 Chief Complaint: Patient presents with: Establish Care Depression Sleep Problem PCOS Subjective Ms. Dickerson is a 29 year old female who presents with the following complaint(s): The history is provided by the patient. No mind reader was used. Depression Pertinent negatives include no weakness. This is a chronic problem. The current episode started more than 1 year ago. The problem is unchanged. Past treatments include nothing. Anxiety Pertinent negatives include no weakness. This is a chronic problem. The current episode started more than 1 year ago. The problem is unchanged. Past treatments include nothing. Review of Systems Constitutional: Negative for fatigue and unexpected weight change. HENT: Negative for nosebleeds. Eyes: Negative for redness and visual disturbance. Respiratory: Negative for apnea, cough and shortness of breath. Cardiovascular: Negative for chest pain, palpitations and leg swelling. Genitourinary: Negative for hematuria. Neurological: Negative for dizziness, weakness, light-headedness, numbness and headaches. Hematological: Does not bruise/bleed easily. Psychiatric/Behavioral: Positive for depression, dysphoric mood and sleep disturbance. Suicidal ideas: has had thoughts in the past but never intentions or plans..The patient is nervous/anxious. PAST MEDICAL HISTORY Diagnosis Date Anxiety Depression Insomnia PCOS (polycystic ovarian syndrome) PAST SURGICAL HISTORY Procedure Laterality Date CYST/MOLE REMOVAL gaglean FAMILY HISTORY Problem Relation Age of Onset other (iron deficient) Mother Kidney Disease Father No Known Problems Sister Hypothyroidism Sister Diabetes Maternal Grandmother Social History Tobacco Use Smoking status: Never Smokeless tobacco: Never Vaping Use Vaping status: Never Used Substance Use Topics Alcohol use: Yes Comment: socially Drug use: Yes Types: Marijuana No current outpatient medications on file. No current facility-administered medications for this visit. I have confirmed and edited as necessary the past medical, family and social histories, HPI, and ROS obtained by others. Objective BP 120/84 Pulse 81 Temp 98.6 Ht 5' 5 (1.65m) Wt 200 lb (90.7kg) SpO2 98% LMP 10/31/2015 BMI 33.28 kg/(m^2). Physical Exam Vitals and nursing note reviewed. Constitutional: General: She is not in acute distress. Appearance: Normal appearance. She is well-developed. She is obese. She is not ill-appearing. HENT: Head: Normocephalic. Nose: Nose normal. Mouth/Throat: Mouth: Mucous membranes are moist. Pharynx: Oropharynx is clear. Uvula midline. No oropharyngeal exudate or posterior oropharyngeal erythema. Eyes: General: Lids are normal. Vision grossly intact. Gaze aligned appropriately. No scleral icterus. Right eye: No discharge. Left eye: No discharge. Extraocular Movements: Extraocular movements intact. Conjunctiva/sclera: Conjunctivae normal. Pupils: Pupils are equal, round, and reactive to light. Neck: Thyroid: No thyroid mass, thyromegaly or thyroid tenderness. Vascular: No carotid bruit. Trachea: Trachea and phonation normal. Cardiovascular: Rate and Rhythm: Normal rate and regular rhythm. Pulses: Normal pulses. Heart sounds: Normal heart sounds. Pulmonary: Effort: Pulmonary effort is normal. Breath sounds: Normal breath sounds. Abdominal: General: Abdomen is flat. Bowel sounds are normal. Palpations: Abdomen is soft. Musculoskeletal: General: Normal range of motion. Right shoulder: Normal. Left shoulder: Normal. Cervical back: Normal, full passive range of motion without pain and neck supple. No tenderness. Nospinous process tenderness. Thoracic back: Normal. Lumbar back: Normal. Right knee: Normal. Left knee: Normal. Right lower leg: No edema. Left lower leg: No edema. Lymphadenopathy: Cervical: No cervical adenopathy. Skin: General: Skin is warm and dry. Comments: Slight facial hair to face Neurological: General: No focal deficit present. Mental Status: She is alert and oriented to person, place, and time. Mental status is at baseline. Sensory: Sensation is intact. Motor: Motor function is intact. Psychiatric: Attention and Perception: Attention and perception normal. Mood and Affect: Mood is anxious. Speech: Speech normal. Behavior: Behavior normal. Thought Content: Thought content normal. Judgment: Judgment normal. Data Reviewed: No new labs ASSESSMENT/PLAN: 1. Anxiety with depression - ICD9: 300.4, ICD10: F41.8 (primary diagnosis) - Chronic, not treated. - Start Citalopram. - Advised if ever has any suicidal ideas to quit medication and go to ED. - Recheck in 6 weeks. - CITALOPRAM 20 MG TABLET 2. PCOS (polycystic ovarian syndrome) - ICD9: 256.4, ICD10: E28.2 - Restart Metformin, on previously started by FORENSIC SCIENCE TECHNICIAN. - METFORMIN 500 MG TABLET 3. Screening for hyperlipidemia - ICD9: V77.91, ICD10: Z13.220 - COMPLETE BLOOD COUNT AND DIFFERENTIAL - COMPREHENSIVE METABOLIC PANEL - LIPID PANEL BASIC - URINALYSIS, WITH MICROSCOPIC 4. Abnormal facial hair - ICD9: 704.1, ICD10: L67.8 - Contribute to PCOS. 5. Screening for thyroid disorder - ICD9: V77.0, ICD10: Z13.29 - THYROID STIMULATING HORMONE 6. Class 1 obesity with body mass index (BMI) of 33.0 to 33.9 in adult, unspecified obesity type, unspecified whether serious comorbidity present - ICD9: 278.00, V85.33, ICD10: E66.811, Z68.33 Return in about 6 weeks (around 07/07/2024) for medication follow up. More Galarza DO Attestation: Scribe Attestation: The patient is seen and examined by Dr. Galarza and the following reflects his/her service. Scribed by Beth Pastrana May 26, 2024 2:45 PMProvider Attestation: I, More Galarza DO personally performed the services described in this documentation. All medical record entries made by the scribe were at my direction and in my presence. I have reviewed the chart and discharge instructions (if applicable) and agree that the record reflects my personal per formance and is accurate and complete. Electronically Signed: More Galarza DO, May 2:56 PM documented in this encounterFulton [facility]08-07-2022 History of Present illness Narrative* Augusta KerrÁNGEL - 11/10/2021 5:03 PM EDT Images from the original note were not included. Patient Name: [facility] Location: [address] [place] [id number] Date Of : Date Of Visit: 1995 11/10/2021 MRN# Provider: [id number] Augusta KerrÁNGEL Chief Complaint Patient presents with Annual Exam Assessment & Plan 1. Encounter for physical examination related to employment Return if symptoms worsen or fail to improve. Medical Decision Making Patient very well-appearing exam benign. Tdap updated. MMR up-to-date. Additional Clinical Comments Discussed over the counter medications for symptomatic management and side effects of medications if ever needed. Recommended taking all medications with food and to stop medications if they develop any signs of an allergic reaction. Subjective 26 y.o. female presents with Annual Exam Other This is a new (here for a physical for work. feeling well today.) problem. Pertinent negatives include no abdominal pain, arthralgias, chest pain, congestion, coughing, fatigue, fever, headaches, joint swelling, nausea, neck pain, rash, sore throat, urinary symptoms, vertigo, visual change or vomiting. Nothing aggravates the symptoms. She has tried nothing for the symptoms. Review Of Systems Review of Systems Constitutional: Negative for fatigue and fever. HENT: Negative for congestion and sore throat. Eyes: Negative for photophobia and redness. Respiratory: Negative for cough. Cardiovascular: Negative for chest pain. Gastrointestinal: Negative for abdominal pain, nausea and vomiting. Musculoskeletal: Negative for arthralgias, joint swelling and neck pain. Skin: Negative for rash. Neurological: Negative for vertigo and headaches. Psychiatric/Behavioral: Negative for decreased concentration. The patient is not nervous/anxious. Medical History Past Medical History: Diagnosis Date Anxiety self diagnosed Depression 2011 was on antidepressants HSV-1 (herpes simplex virus 1) infection HSV-2 (herpes simplex virus 2) infection PCOS (polycystic ovarian syndrome) Past Surgical History: Procedure Laterality Date EXCISION LESION HAND Right 12/14/2020 Procedure: EXCISION RIGHT VOLAR WRIST GANGLION CYST; Surgeon: Kelechi Polanco MD; Location: [facility] OR; Service: Orthopedic WISDOM TOOTH EXTRACTION Patient Active Problem List Diagnosis Ganglion of wrist Depression Ganglion, right wrist Injury of right ankle PCOS (polycystic ovarian syndrome) Social History Social History Tobacco Use Smoking status: Never Smokeless tobacco: Never Vaping Use Vaping Use: Never used Substance Use Topics Alcohol use: Yes Alcohol/week: 0.0 standard drinks Comment: Occas Drug use: Never Family History Family History Problem Relation Age of Onset Polycystic kidney disease Father Kidney disease Father Arthritis Maternal Grandmother Diabetes Maternal Grandmother Kidney disease Maternal Grandmother Diabetes Maternal Uncle Diabetes Maternal Grandfather Surgical complications Neg Hx Anesthesia problems Neg Hx Heart disease Neg Hx Clotting disorder Neg Hx Deep vein thrombosis Neg Hx Pulmonary embolism Neg Hx Objective Physical Exam BP 107/76 Pulse 75 Temp 97.9 F (36.6 C) (Tympanic) Resp 16 Ht 5' 4.5 Wt 81.6 kg (180 lb) SpO2 95% BMI 30.42 kg/m Vision/Hearing Exam:No results found. Physical Exam Constitutional: Appearance: She is well-developed. HENT: Head: Normocephalic and atraumatic. Right Ear: External ear normal. Left Ear: External ear normal. Mouth/Throat: Pharynx: No oropharyngeal exudate. Cardiovascular: Rate and Rhythm: Normal rate and regular rhythm. Pulmonary: Effort: Pulmonary effort is normal. No respiratory distress. Breath sounds: Normal breath sounds. No wheezing. Chest: Chest wall: No tenderness. Abdominal: General: Bowel sounds are normal. Palpations: Abdomen is soft. Musculoskeletal: General: No tenderness. Normal range of motion. Skin: General: Skin is warm and dry. Findings: No erythema or rash. Neurological: Mental Status: She is alert and oriented to person, place, and time. Procedure Notes Procedures Results No results found for this or any previous visit (from the past 168 hour(s)). No orders to display Orders Placed This Visit No orders of the defined types were placed in this encounter. Medication List At End Of Visit Current Outpatient Medications Medication Sig Dispense Refill FLUoxetine (PROzac) 20 MG capsule Take 3 (three) capsules (60 mg total) by mouth daily . 270 capsule 0 metFORMIN (GLUCOPHAGE) 500 MG tablet Take 1 tablet by mouth 2 (two) times a day Reasons: polycysticovarian syndrome, a disease with cysts in the ovaries. No current facility-administered medications for this visit. There are no Patient Instructions on file for this visit. documented in this [id number] History of Present illness Narrative* Lele Al, - 07/11/2021 11:04 AM EDT Assessment and Plan: Problem List Items Addressed This Visit Endocrine PCOS (polycystic ovarian syndrome) Other Depression - Primary Relevant Medications FLUoxetine (PROzac) 20 MG capsule Injury of right ankle Relevant Orders Ambulatory referral to Orthopedics Depression. Continue Prozac 60 mg p.o. daily but she will try taking in the morning. Prozac is slightly activating compared to other SSRIs so I am not convinced that it is causing her drowsiness, perhaps it is disrupting her sleep leading to some daytime fatigue. If she does not feel better after 1to 2 weeks of trying this in the morning she will let me know. Otherwise follow-up in 3 to 6 months. I have referred her to orthopedics for eval of continued right ankle pain and swelling. Concern forsoft tissue damage. Reviewed x-ray of the right ankle from 06/12 with patient. If she is unable to get in with them in the next 1 to 2 weeks she will let me know. PCOS. Continue metformin prescribed by FORENSIC SCIENCE TECHNICIAN. For any new medications prescribed today, patient was educated about indications for the medication, how to take the medication, and potential side effects. Subjective Subjective: 26-year-old female with PCOS, depression, recent inversion injury to the right ankle here for follow-up and requests [facility] paperwork be filled out. She had a inversion ankle sprain to her right ankle 06/12/2021. She presented to the ER and an x-ray was negative for fracture. She has some continued swelling which I appreciated on exam today as wellas pain and difficulty standing all day. She works on the [employer] line at [employer] in [place]. For depression, she is happy with Prozac 60 mg daily. She takes it at night and thinks that Prozac may be causing some drowsiness. Otherwise mood is stable, no SI. Review of Systems All other systems reviewed and are negative. Pertinent positives are noted in HPI. I reviewed and updated the following as appropriate: Problem list, current medications, and allergies. Objective Objective: BP 97/64 Pulse 87 Temp 98.1 F (36.7 C) (Skin) Wt 78 kg (172 lb) LMP 07/02/2021 SpO2 97% BMI 29.52 kg/m Constitutional: AAOx3. NAD. HENT: Head NC/AT. No cervical adenopathy. Eyes: Conjunctiva normal. EOMI. PERRL. Neck: Normal range of motion. Neck supple. No thyromegaly present. Cardiovascular: No lower extremity swelling. Pulmonary/Chest: No respiratory distress. Abdominal: Nondistended Neurological: AAOx3, ultimate hoops referee 2-12 grossly intact. Skin: Skin is warm and dry. No rash noted. Musculoskeletal: There is some right pedal edema compared with the left, no bony tenderness. Gait is normal. Psychiatric: Appearance: appropriate dress Affect: appropriate; eye contact appropriate Speech: fluent, goal directed, appropriate in rate, amount, volume Activity: no psychomotor agitation, retardation Mood: good Thought process: linear, goal directed Thought content: no SI, no HI, no auditory/visual/tactile hallucinations, no delusions, no obsessions fund of knowledge: average insight: good judgement: good orientation: x4, alert neuro: face symmetric, no dysarthria, normal gait Lele Al DO 07/11/21 11:15 AM Note: To expedite correspondence, this note may have been generated by [employer]Way voice recognition software. Some grammatical or spelling errors may occur using the system. documented in this [id number] Miscellaneous Notes* Telephone Encounter - Julissa Robin MA - 04/02/2021 12:55 PM EST ----- Message from Crystal Wiggins sent at 04/02/2021 12:05 PM EST ----- Regarding: medication needs filled to another pharmacy Contact: Rufina/[phone] Pt called in and stated that she ran out of her medication Prozac but it was filled at her local pharmacy. Pt is not in town and was wondering if it could be sent to a [facility] where she is staying (down Below). Please call pt to let her know if this possible. Thank You FLUoxetine (PROzac) 20 MG [id number]/05/2021 Sig - Route: Take 3 (three) capsules (60 mg total) by mouth daily . - Oral Sent to pharmacy as: FLUoxetine 20 mg capsule (PROzac) E-Prescribing Status: Receipt confirmed by pharmacy (01/07/2021 1:33 PM EDT) [employer] [facility] [email or web address] [address] [facility], [place] [address] documented in this [id number] History of Present illness Narrative* Soco Stuart CNP - 02/27/2021 12:44 PM EST PATIENT NAME: Rufina Astudillo [facility] [address] [place] [id number] : 1995 DATE OF VISIT: 02/27/2021 #: [id number] PROVIDER: Soco Stuart CNP Chief Complaint Patient presents with Exposure to STD Pt states she has HSVII and is having an outbreak. Having symptoms x1 week SUBJECTIVE 26 y.o. female presents Exposure to STD (Pt states she has HSVII and is having an outbreak. Having symptoms x1 week) Pt has hx herpes. Not concerned for STD. Her and her are trying to get . Reports thinks her herpes is back. Feels pain in the crease of her labia above the clitoris. Reports some discharge noticed, but didn't think any of it. Vaginal Discharge The patient's primary symptoms include genital itching, a genital odor, a genital rash and vaginal discharge. This is a new problem. The current episode started in the past 7 days. The problem occursdaily. The problem has been gradually worsening. The patient is experiencing no pain. The problem affects both sides. She is not . Pertinent negatives include no chills, fever, nausea or vomiting. The vaginal discharge was white, yellow, copious and thin. There has been no bleeding. She hasnot been passing clots. She has not been passing tissue. Nothing aggravates the symptoms. She has tried nothing for the symptoms. MEDICAL ISSUES Past Medical History: Diagnosis Date Anxiety self diagnosed Depression 2011 was on antidepressants HSV-1 (herpes simplex virus 1) infection HSV-2 (herpes simplex virus 2) infection PCOS (polycystic ovarian syndrome) Patient Active Problem List Diagnosis Ganglion of wrist Depression Ganglion, right wrist SOCIAL HISTORY Social History Socioeconomic History Marital status: Tobacco Use Smoking status: Never Smoker Smokeless tobacco: Never Used Vaping Use Vaping Use: Never used Substance and Sexual Activity Alcohol use: Yes Alcohol/week: 0.0 standard drinks Comment: Occas Drug use: Never Sexual activity: Yes Partners: Male control/protection: None Comment: My and i are trying to get FAMILY HISTORY Family History Problem Relation Age of Onset Polycystic kidney disease Father Kidney disease Father Arthritis Maternal Grandmother Diabetes Maternal Grandmother Kidney disease Maternal Grandmother Diabetes Maternal Uncle Diabetes Maternal Grandfather Surgical complications Neg Hx Anesthesia problems Neg Hx Heart disease Neg Hx Clotting disorder Neg Hx Deep vein thrombosis Neg Hx Pulmonary embolism Neg Hx REVIEW OF SYSTEMS Review of Systems Constitutional: Negative for chills and fever. HENT: Negative for postnasal drip, rhinorrhea, sinus pressure, sinus pain and sneezing. Eyes: Negative for discharge and itching. Respiratory: Negative for chest tightness, shortness of breath and wheezing. Gastrointestinal: Negative for nausea and vomiting. Genitourinary: Positive for vaginal discharge. Negative for difficulty urinating. Musculoskeletal: Negative for neck pain and neck stiffness. Skin: Negative for color change. Allergic/Immunologic: Negative for environmental allergies. Neurological: Negative for dizziness and light-headedness. MEDICATIONS PRIOR TO VISIT Current Outpatient Medications on File Prior to Visit Medication Sig Dispense Refill FLUoxetine (PROzac) 20 MG capsule Take 3 (three) capsules (60 mg total) by mouth daily . 270 capsule 0 metFORMIN (GLUCOPHAGE) 500 MG tablet Take 1 tablet by mouth 2 (two) times a day Reasons: polycysticovarian syndrome, a disease with cysts in the ovaries. ibuprofen (ADVIL,MOTRIN) 800 MG tablet Take 800 mg by mouth every 6 (six) hours as needed for pain . No current facility-administered medications on file prior to visit. ALLERGIES/INTOLERANCES No Known Allergies OBJECTIVE BP 111/76 Pulse 77 Temp (!) 96.6 F (35.9 C) (Tympanic) Resp 14 Ht 5' 4 Wt 78.2 kg (172 lb 4.8 oz) LMP 01/25/2021 SpO2 95% BMI 29.58 kg/m Physical Exam Vitals and nursing note reviewed. Exam conducted with a miter grinder operator present (Xiomara Vital, DRIP BOX TENDER student ). Constitutional: General: She is not in acute distress. Appearance: She is well-developed and well-nourished. She is not diaphoretic. HENT: Head: Normocephalic and atraumatic. Right Ear: External ear normal. Left Ear: External ear normal. Nose: Nose normal. Mouth/Throat: Mouth: Mucous membranes are moist. Pharynx: Oropharynx is clear. Eyes: General: No scleral icterus. Right eye: No discharge. Left eye: No discharge. Extraocular Movements: EOM normal. Conjunctiva/sclera: Conjunctivae normal. Pupils: Pupils are equal, round, and reactive to light. Cardiovascular: Rate and Rhythm: Normal rate. Pulmonary: Effort: Pulmonary effort is normal. No respiratory distress. Genitourinary: Vagina: Vaginal discharge present. Comments: Yellowish in color. -malodorous. +copius. Very small superficial lac to crease of labia above clitoris. -bleeding. Discharge in crease. Outer vaginal region erythematous. -genital sore. Musculoskeletal: General: No edema. Normal range of motion. Cervical back: Normal range of motion. Skin: General: Skin is warm and dry. Findings: No erythema. Neurological: Mental Status: She is alert and oriented to person, place, and time. Psychiatric: Mood and Affect: Mood and affect normal. Behavior: Behavior normal. Thought Content: Thought content normal. Judgment: Judgment normal. PROCEDURE Procedures Results No results found for this or any previous visit (from the past 168 hour(s)). ASSESSMENT/PLAN (expressed as patient instructions): 1. Vaginal discharge fluconazole (DIFLUCAN) 150 MG tablet Genital Aerobic Culture Genital Aerobic Culture No follow-ups on file. Additional Comments Return precautions discussed in room, including when to seek care in ER or to follow up with PCP. All questions answered, pt voices agreement with treatment plan. See AVS for specific instructions. Pt refused STD testing and wants only genital culture. Genital culture sent. Treated for diflucan. Held off on flagyl until receiving culture result back. ORDERS PLACED THIS VISIT Orders Placed This Encounter Procedures Genital Aerobic Culture MEDICATION LIST AT END OF VISIT Current Outpatient Medications Medication Sig Dispense Refill FLUoxetine (PROzac) 20 MG capsule Take 3 (three) capsules (60 mg total) by mouth daily . 270 capsule 0 metFORMIN (GLUCOPHAGE) 500 MG tablet Take 1 tablet by mouth 2 (two) times a day Reasons: polycysticovarian syndrome, a disease with cysts in the ovaries. fluconazole (DIFLUCAN) 150 MG tablet Take 1tab today and repeat in 72 hours if sx persist . 2 tablet 0 ibuprofen (ADVIL,MOTRIN) 800 MG tablet Take 800 mg by mouth every 6 (six) hours as needed for pain . No current facility-administered medications for this visit. documented in this [id number] Instructions* Patient Instructions* Soco Stuart CNP - 02/27/2021 12:24 PM EST Images from the original note were not included. Push fluids. Take medications as prescribed Take OTC ibuprofen and tylenol as directed alternating between the two every 4 hours. Follow up with your PCP or FORENSIC SCIENCE TECHNICIAN if no improvement in 2-3 days for a recheck, sooner if symptoms worsen before then. We will call you with genital culture results and if you need an antibiotic for other concerns we discussed we will send it at that time Vaginal Yeast Infection: Care Instructions Overview A vaginal yeast infection is the growth of too many yeast cells in the vagina. This is common in women of all ages. Itching, vaginal discharge and irritation, and other symptoms can bother you. But yeast infections don't often cause other health problems. Some medicines can increase your risk of getting a yeast infection. These include antibiotics, control pills, hormones, and steroids. You may also be more likely to get a yeast infection if youare , have diabetes, douche, or wear tight clothes. With treatment, most yeast infections get better in 2 to 3 days. Follow-up care is a rizo part of your treatment and safety. Be sure to make and go to all appointments, and call your doctor if you are having problems. It's also a good idea to know your test resultsand keep a list of the medicines you take. How can you care for yourself at home? Take your medicines exactly as prescribed. Call your doctor if you think you are having a problem with your medicine. Ask your doctor about fkll-bpp-myeniam (OTC) medicines for yeast infections. They may cost less than prescription medicines. If you use an OTC treatment, read and follow all instructions on the label. Don't use tampons while using a vaginal cream or suppository. The tampons can absorb the medicine. Use pads instead. Wear loose cotton clothing. Don't wear nylon or other fabric that holds body heat and moisture close to the skin. Try sleeping without underwear. Don't scratch. Relieve itching with a cold pack or a cool bath. Don't wash your vaginal area more than once a day. Use plain water or a mild, unscented soap. Air-dry the vaginal area. Change out of wet swimsuits after swimming. If you are using a vaginal medicine, don't have sex until you have finished your treatment. But if you do have sex, don't depend on a condom or diaphragm for control. The oil in some vaginal medicines weakens latex. Don't douche. When should you call for help? Call your doctor now or seek immediate medical care if: You have unexpected vaginal bleeding. You have new or increased pain in your vagina or pelvis. Watch closely for changes in your health, and be sure to contact your doctor if: You have a fever. You are not getting better after 2 days. Your symptoms come back after you finish your medicines. Where can you learn more? Log into your personal health record on https://[employer] and enter F639 in the Education box to learn more about Vaginal Yeast Infection: Care Instructions. Current as of: May 17, 2020 Content Version: 13.0 [employer]. Care instructions adapted under license by your healthcare professional. If you have questions about a medical condition or this instruction, always ask your healthcare professional. [employer] disclaims any warranty or liability for your use of this information. documented in this [id number] History of Present illness Narrative* Lele Al, - 12/04/2020 10:57 AM EDT Video Visit Note [facility] [address] [facility] [address] [facility] [id number] Virtual Visit [facility] 12/04/20 Lele Al DO Provider Location: Office Patient Location Corporate Legal Secretary: None Patient Location: home Patient: Rufina Astudillo Date of : 1995 (25 y.o. female) PCP: Lele Al DO I instructed patient to contact me promptly with additional concerns. Virtual Visit Consent Statement: I discussed risks, benefits and alternatives of telemedicine consultation with the patient (and any accompanying persons) including the risks that the patient s personal health details and medical records will be discussed over interactive video/audio/telecommunication technology, may be recorded, and that there are inherent diagnostic limitations compared to agmi-lw-fnik evaluations. They elected to proceed with the telemedicine consultation. Assessment and Plan: Problem List Items Addressed This Visit Other Depression - Primary Relevant Medications FLUoxetine (PROZAC) 40 MG capsule She is happy with Prozac but thinks that she could benefit from an increase in the dose. Will increase Prozac from 20 mg daily to 40 mg daily. We had just started this medication in early November so we will give it another 4 to 6 weeks to assess for better efficacy. Recommend follow-up in 4 to 6 weeks or sooner if needed. I did recommend helping to get patient established with a counselor/therapist and she declines today. For any new medications prescribed today, patient was educated about indications for the medication, how to take the medication, and potential side effects. Subjective: 25-year-old female with depression recently started on Prozac 20 mg daily here for follow-up. Major depression. Started on Prozac 20 mg daily on November 06, 2020. Feeling better overall. Used to lay in bed all day. Depression is better. No side effects from medication. Her accompanies her for video visit today. Review of Systems All other systems reviewed and are negative. Pertinent positives are noted in HPI. I reviewed and updated the following as appropriate: Problem list, current medications, and allergies. Objective: LMP 11/14/2020 (Exact Date) Constitutional: AAOx3. NAD. HENT: Head NC/AT. Eyes: Conjunctiva normal. EOMI. Neck: Normal range of motion. No obvious thyromegaly present. Pulmonary/Chest: No respiratory distress. Neurological: AAOx3, ultimate hoops referee 2-12 appear grossly intact. Skin: Skin appears dry. No rash noted. Psychiatric: Appearance: appropriate dress Affect: appropriate; eye contact appropriate Speech: fluent, goal directed, appropriate in rate, amount, volume Activity: no psychomotor agitation, retardation Mood: good Thought process: linear, goal directed Thought content: no SI, no HI, no auditory/visual/tactile hallucinations, no delusions, no obsessions fund of knowledge: average insight: good judgement: good orientation: x4, alert neuro: face symmetric, no dysarthria Lele Al DO 12/04/20 11:14 AM documented in this [id number] History of Present illness Narrative* Kelechi Polanco MD - 11/21/2020 9:00 AM EDT 11/21/20 Rufina Astudillo 1995 CHIEF COMPLAINT Right wrist cyst. HISTORY Ms. Astudillo is a 25 y.o. year old kayud-tsly-rcwkwssd Female who presents for evaluation of right wrist cyst. Has been present for approximately 3 weeks localized to the volar aspect of his wrist. Patient does have associated pain. Denies change in size. Has utilized Voltaren with some improvement. REVIEW OF SYSTEMS Patient denies any recent fever, chills or skin changes. PAST MEDICAL HISTORY The patient's Medications, Allergies, Past Surgical History, Medical History, Family History and Social History were reviewed and can be found in their online medical record. PHYSICAL EXAM General: Patient is well developed, well nourished in no apparent distress. They are awake and oriented x 3. Appropriate mood and affect. Pt ambulates with a normal gait. Appropriate balance. Inspection: Examination of the Right upper extremity reveals the skin to be intact with no edema, erythema or ecchymosis. There is no obvious deformity. 1 cm x 1 cm volar wrist ganglion cyst. Palpation: Right Wrist: Nontender to palpation. ROM: Extension 70 , Flexion 70 , Supination 85 and Pronation 85 . Strength: Normal strength against resistance. Instability: None. Neurovascular: Right Hand: Sensation is intact to light touch in median, radial, and ulnar nerve distributions. Firing EPL, FPL, finger flexors, and interossei muscles. Fingers are pink and well-perfused with brisk capillary refill. No skin changes are noted. IMAGING XR Wrist Right 2 Views Result Date: 11/21/2020 X-rays 2 views of Right wrist (PA, lateral) were obtained and independently reviewed. Impression: Well-preserved joint spaces, negative for acute osseous abnormality. ASSESSMENT Right volar wrist ganglion cyst. PLAN I had a thorough discussion regarding the diagnosis and treatment options. We discussed both nonoperative and operative intervention. Patient has elected to proceed with operative intervention. Planned procedure will be excision of right volar wrist ganglion cyst. The risks involved with the procedure were discussed in detail including, but not limited to: bleeding, infection, neurovascular injury, incomplete relief of symptoms, pain, dysfunction, recurrence, and need for further surgery. Despite these risks, she elected to proceed. We will schedule surgery accordingly. Patient was amenable to the plan as stated. X-rays upon next visit:No. Cast:N/A. Thank you for allowing me to participate in her care. Kelechi Polanco MD Orthopedic Hand & Upper Extremity Surgeon Note: To expedite correspondence this note was generated by [employer] voice recognition software. Somegrammatical or spelling errors may occur using the system. documented in this [id number] History of Present illness Narrative* Lele Al, - 11/06/2020 9:37 AM EDT Assessment and Plan: Problem List Items Addressed This Visit Other Ganglion of wrist Relevant Medications diclofenac sodium (VOLTAREN) 75 MG EC tablet Depression - Primary Relevant Medications FLUoxetine (PROZAC) 20 MG capsule Other Relevant Orders CBC Comprehensive Metabolic Panel HIV 1/2 Screen (4th Generation) Hepatitis C Antibody Lipid Panel TSH with Reflex Free T4 Other Visit Diagnoses Establishing care with new doctor, encounter for For uncontrolled depression will start prozac 20 mg daily. RTO in 4-6 weeks. Pt has follow up with ortho in two weeks. Trial voltaren BID PRN. Will provide letter for work restrictions at [employer] sees ortho. S/sx necessitating urgent re-evaluation discussed. For any new medications prescribed today, patient was educated about indications for the medication, how to take the medication, and potential side effects. Subjective Subjective: Ganglion cyst on right wrist. Causing pain. Tylenol, advil, ice, and heat hasn't helped. Seeing orthopedics 11/22. Also having pain with flexion extension of her wrist at the dorsal forearm in the externsor musculature. No numbness, tingling, weakness. Depression since high school. Previously on anti depressant. More recently an issue. Low mood, angry, sad, disrupted sleep, complains a lot, anhedonia. Counseling in the past didn't help. Pt declinesthis. No SI. Admits to self-harm when she was in high school. Review of Systems Patient specifically denies fevers, chills, weight loss, headache, vision changes, chest pain, palpitations, shortness of breath, abdominal pain, N/V/D, dysuria or hematuria, bloody bowel movements, or edema. I reviewed and updated the following as appropriate: Problem list, current medications, and allergies. Objective Objective: BP 99/68 Pulse 88 Temp 98.1 F (36.7 C) (Skin) Ht 5' 5 Wt 82.1 kg (181 lb) LMP 10/09/2020 SpO2 98% BMI 30.12 kg/m Constitutional: AAOx3. NAD. HENT: Head NC/AT. No cervical adenopathy. Eyes: Conjunctiva normal. EOMI. PERRL. Neck: Normal range of motion. Neck supple. No thyromegaly present. Cardiovascular: RRR, normal S1/S2, no murmur appreciated. No lower extremity swelling. Pulmonary/Chest: CTAB, without wheezes, crackles, rhonchi. No respiratory distress. Abdominal: Bowel sounds present. Soft, nondistended, nontender to palpation. No palpable mass or organomegaly. Neurological: AAOx3, ultimate hoops referee 2-12 grossly intact. Skin: Skin is warm and dry. No rash noted. Musculoskeletal: There is a roughly 1.5 cm cyst on the palmar lateral wrist. No other obvious grossbony abnormalities. Psychiatric: Appearance: appropriate dress Affect: flat; eye contact appropriate Speech: fluent, goal directed, appropriate in rate, amount, volume Activity: no psychomotor agitation, retardation Mood: down Thought process: linear, goal directed Thought content: no SI, no HI, no auditory/visual/tactile hallucinations, no delusions, no obsessions fund of knowledge: average insight: good judgement: good orientation: x4, alert neuro: face symmetric, no dysarthria, normal gait Lele Al DO 11/06/20 10:34 AM Note: To expedite correspondence, this note may have been generated by Stellar[employer] recognition software. Some grammatical or spelling errors may occur using the system. documented in this [id number] Instructions* Patient Instructions* LabertArlinMarco Antonio, ÁNGEL - 10/26/2020 6:41 PM EDT Images from the original note were not included. An ortho consult has been ordered for you today. Please follow up by calling on at 8:00 a.m. Ganglions: Care Instructions Your Care Instructions A ganglion is a small sac, or cyst, filled with a clear fluid that is like jelly. A ganglion may look like a bump on the hand or wrist. It also can appear on your feet, ankles, knees, or shoulders. It is not cancer. A ganglion can grow out of the protective area, or capsule, around a joint. It alsocan grow on a tendon sheath, which covers the ropelike tendons that connect muscle to bone. A ganglion may hurt or cause numbness if it presses on a nerve. Many ganglions do not need treatment, and they often go away on their own. But if a ganglion hurts,becomes larger, causes numbness, or limits your activity, your doctor may want to drain it with a needle and syringe or remove it with minor surgery. Follow-up care is a rizo part of your treatment and safety. Be sure to make and go to all appointments, and call your doctor if you are having problems. It's also a good idea to know your test resultsand keep a list of the medicines you take. How can you care for yourself at home? Wear a wrist or finger splint as directed by your doctor. It will keep your wrist or hand from moving and help reduce the fluid in the cyst. This may be all you need for the ganglion to shrink and goaway. Do not smash a ganglion with a book or other heavy object. You may break a bone or otherwise injureyour wrist by trying this folk remedy, and the ganglion may return anyway. Do not try to drain the fluid by poking the ganglion with a pin or any other sharp object. You could cause an infection. When should you call for help? Call your doctor now or seek immediate medical care if: You have signs of infection, such as: ? Increased pain, swelling, warmth, or redness. ? Red streaks leading from the cyst. ? Pus draining from the cyst. ? A fever. Watch closely for changes in your health, and be sure to contact your doctor if: You have increasing pain. Your ganglion is getting larger. You still have pain or numbness from a ganglion. Where can you learn more? Log into your personal health record on?https://Dynasil.[employer]?and enter X828?in the Education box to learn more about Ganglions: Care Instructions. Current as of: February 20, 2020 Content Version: 12.9 Odersun. Care instructions adapted under license by your healthcare professional. If you have questions about a medical condition or this instruction, always ask your healthcare professional. [employer] disclaims any warranty or liability for your use of this information. documented in this [id number] History of Present illness Narrative* Marco Antonio Mix CNP - 10/26/2020 6:31 PM EDT Images from the original note were not included. Subjective: Patient ID: Rufina Astudillo is a 25 y.o. female. Chief Complaint: Pt denies . She presented to the clinic with a c/o a 1 week hx of a painful right wrist lump which is rated as an 5/10. She denies any injury to her wrist or associated elevated temps. She has not attempted to treat her symptoms with any medication. Past Medical History: Diagnosis Date PCOS (polycystic ovarian syndrome) History reviewed. No pertinent surgical history. Family History Problem Relation Age of Onset Polycystic kidney disease Father Review of Systems Constitutional: Negative for activity change, appetite change, chills, diaphoresis, fatigue and fever. Respiratory: Negative for chest tightness and shortness of breath. Cardiovascular: Negative for chest pain and palpitations. Gastrointestinal: Negative for abdominal pain, constipation, diarrhea, nausea and vomiting. Musculoskeletal: Positive for arthralgias (right wrist). Skin: Negative for rash. Neurological: Negative for dizziness, weakness, light-headedness, numbness and headaches. Objective: BP 117/80 Pulse 81 Temp 98.6 F (37 C) Resp 14 Wt 80.9 kg (178 lb 4.8 oz) LMP 10/09/2020 SpO2 99% BMI 29.67 kg/m Physical Exam Vitals and nursing note reviewed. Constitutional: General: She is not in acute distress. Appearance: She is well-developed. She is not diaphoretic. HENT: Head: Normocephalic and atraumatic. Right Ear: External ear normal. Left Ear: External ear normal. Eyes: General: Right eye: No discharge. Left eye: No discharge. Conjunctiva/sclera: Conjunctivae normal. Cardiovascular: Rate and Rhythm: Normal rate and regular rhythm. Heart sounds: Normal heart sounds. Pulmonary: Effort: Pulmonary effort is normal. No respiratory distress. Breath sounds: Normal breath sounds. Abdominal: General: There is no distension. Musculoskeletal: General: Normal range of motion. Right wrist: No swelling, deformity, effusion, lacerations, tenderness, bony tenderness, snuff box tenderness or crepitus. Normal range of motion. Normal pulse. Arms: Cervical back: Normal range of motion and neck supple. Skin: Findings: No rash. Neurological: General: No focal deficit present. Mental Status: She is alert. Psychiatric: Behavior: Behavior normal. Thought Content: Thought content normal. Judgment: Judgment normal. Assessment: Diagnoses and all orders for this visit: Ganglion, right wrist - Ambulatory Referral to [facility]; Future Plan: [facility] consult ordered. Pt to follow up up with [facility]. Pt to follow up with pcp in 1-2 days. Pt to return to care sooner for persistent, concerning or worsening symptoms. Red flag sx and sx which experienced the pt should immediately return to care/follow up with PCP/ Return to Urgent Care/Emergency room discussed with pt/parent and the patient/parent verbalized understanding regarding the plan of care. documented in this [id number] Instructions* Patient Instructions* Jesenia Moy CNP - 09/29/2020 10:27 AM EDT Images from the original note were not included. Vaginal Yeast Infection: Care Instructions Overview A vaginal yeast infection is the growth of too many yeast cells in the vagina. This is common in women of all ages. Itching, vaginal discharge and irritation, and other symptoms can bother you. But yeast infections don't often cause other health problems. Some medicines can increase your risk of getting a yeast infection. These include antibiotics, control pills, hormones, and steroids. You may also be more likely to get a yeast infection if youare , have diabetes, douche, or wear tight clothes. With treatment, most yeast infections get better in 2 to 3 days. Follow-up care is a rizo part of your treatment and safety. Be sure to make and go to all appointments, and call your doctor if you are having problems. It's also a good idea to know your test resultsand keep a list of the medicines you take. How can you care for yourself at home? Take your medicines exactly as prescribed. Call your doctor if you think you are having a problem with your medicine. Ask your doctor about [id number]-[id number] (OTC) medicines for yeast infections. They may cost less than prescription medicines. If you use an OTC treatment, read and follow all instructions on the label. Don't use tampons while using a vaginal cream or suppository. The tampons can absorb the medicine. Use pads instead. Wear loose cotton clothing. Don't wear nylon or other fabric that holds body heat and moisture close to the skin. Try sleeping without underwear. Don't scratch. Relieve itching with a cold pack or a cool bath. Don't wash your vaginal area more than once a day. Use plain water or a mild, unscented soap. Air-dry the vaginal area. Change out of wet swimsuits after swimming. If you are using a vaginal medicine, don't have sex until you have finished your treatment. But if you do have sex, don't depend on a condom or diaphragm for control. The oil in some vaginal medicines weakens latex. Don't douche. When should you call for help? Call your doctor now or seek immediate medical care if: You have unexpected vaginal bleeding. You have new or increased pain in your vagina or pelvis. Watch closely for changes in your health, and be sure to contact your doctor if: You have a fever. You are not getting better after 2 days. Your symptoms come back after you finish your medicines. Where can you learn more? Log into your personal health record on https://Snapkint.[employer] and enter F639 in the Education box to learn more about Vaginal Yeast Infection: Care Instructions. Current as of: October 21, 2019 Content Version: 12.8 Odersun. Care instructions adapted under license by your healthcare professional. If you have questions about a medical condition or this instruction, always ask your healthcare professional. [employer] disclaims any warranty or liability for your use of this information. documented in this [id number] History of Present illness Narrative* Jesenia Moy CNP - 09/29/2020 10:03 AM EDT Images from the original note were not included. Patient Name: [facility] Location: Rufina Astudillo [address] [place], [place] [id number] Date Of : Date Of Visit: 1995 09/29/2020 MRN# Provider: [id number] Jesenia Moy CNP Chief Complaint Patient presents with Vaginal Discharge with itching x4 days Assessment & Plan 1. Vaginal discharge Genital Aerobic Culture POC Bacterial Vaginosis Genital Aerobic Culture fluconazole (DIFLUCAN) 150 MG tablet 2. Bacterial vaginosis metroNIDAZOLE (FlagyL) 500 MG tablet No follow-ups on file. Medical Decision Making HPI and exam findings consistent with vulvovaginal candidiasis. POC Bacterial Vaginosis swab was positive. She declined STD testing today. Rx for Diflucan and Flagyl sent to patient's pharmacy. Advised patient no ETOH while taking Flagyl. Follow up with PCP or FORENSIC SCIENCE TECHNICIAN if symptoms worsen or persist. She verbalized understanding and agreement with this plan. Additional Clinical Comments Educated patient and/or guardian about signs and symptoms that would warrant further immediate evaluation. Recommended that they should return to urgent care, make an appointment with their family physician, or go to the emergency room if symptoms persist or get acutely worse. Recommended follow upwithin the next week with their PCP or to get established with a PCP soon in order to follow up appropriately. Subjective 25 y.o. female presents with Vaginal Discharge (with itching x4 days) 25 yo female presents to urgent care for vaginal itching, discharge, and discomfort x 4 days. She denies malodorous discharge. She has no UTI symptoms, pelvic pain, fevers, or N/V/D. LMP [address]. She'shad BV in the past. No STD concerns. Monogamous with her partner. Does not want STD testing today. Review Of Systems Review of Systems Constitutional: Negative for chills and fever. Gastrointestinal: Negative for abdominal pain, diarrhea, nausea and vomiting. Genitourinary: Positive for vaginal discharge and vaginal pain (itching and discomfort). Negative for decreased urine volume, difficulty urinating, dyspareunia, dysuria, enuresis, flank pain, frequency, genital sores, hematuria, menstrual problem, pelvic pain, urgency and vaginal bleeding. Skin: Negative for rash. Medical History Past Medical History: Diagnosis Date PCOS (polycystic ovarian syndrome) History reviewed. No pertinent surgical history. There is no problem list on file for this patient. Social History Social History Tobacco Use Smoking status: Never Smoker Smokeless tobacco: Never Used Vaping Use Vaping Use: Never used Substance Use Topics Alcohol use: Yes Drug use: Never Family History Family History Problem Relation Age of Onset Polycystic kidney disease Father Objective Physical Exam BP 121/81 Pulse 73 Temp 97.4 F (36.3 C) (Tympanic) Resp 14 Ht 5' 5 Wt 82.4 kg (181 lb 9.6 oz) LMP 08/27/2020 (Exact Date) SpO2 97% No BMI 30.22 kg/m Vision/Hearing Exam:No exam data present Physical Exam Vitals reviewed. Constitutional: General: She is awake. She is not in acute distress. Appearance: Normal appearance. She is well-developed and well-groomed. She is not ill-appearing, toxic-appearing or diaphoretic. Pulmonary: Effort: Pulmonary effort is normal. No respiratory distress. Genitourinary: Urethra: No prolapse, urethral pain, urethral swelling or urethral lesion. Vagina: No signs of injury and foreign body. Vaginal discharge (copious thick white clumpy discharge noted) and tenderness (discomfort with speculum insertion) present. No erythema, bleeding, lesionsor prolapsed vaginal ospina. Cervix: Normal. Skin: General: Skin is warm and dry. Neurological: Mental Status: She is alert and oriented to person, place, and time. Gait: Gait is intact. Psychiatric: Behavior: Behavior is cooperative. Procedure Notes Procedures Results Recent Results (from the past 168 hour(s)) POC Bacterial Vaginosis Collection Time: 09/29/20 10:55 AM Result Value Ref Range Bacterial Vaginosis Positive (A) Negative No orders to display Orders Placed This Visit Orders Placed This Encounter Procedures Genital Aerobic Culture POC Bacterial Vaginosis Medication List At End Of Visit Current Outpatient Medications Medication Sig Dispense Refill metFORMIN (GLUCOPHAGE) 500 MG tablet Take 1 tablet by mouth 2 (two) times a day . fluconazole (DIFLUCAN) 150 MG tablet Take 1 tab PO today, then repeat a dose in 3 days. . 2 tablet 0 metroNIDAZOLE (FlagyL) 500 MG tablet Take 1 (one) tablet (500 mg total) by mouth 2 (two) times a day for 7 days . 14 tablet 0 No current facility-administered medications for this visit. Patient Instructions Vaginal Yeast Infection: Care Instructions Overview A vaginal yeast infection is the growth of too many yeast cells in the vagina. This is common in women of all ages. Itching, vaginal discharge and irritation, and other symptoms can bother you. But yeast infections don't often cause other health problems. Some medicines can increase your risk of getting a yeast infection. These include antibiotics, control pills, hormones, and steroids. You may also be more likely to get a yeast infection if youare , have diabetes, douche, or wear tight clothes. With treatment, most yeast infections get better in 2 to 3 days. Follow-up care is a rizo part of your treatment and safety. Be sure to make and go to all appointments, and call your doctor if you are having problems. It's also a good idea to know your test resultsand keep a list of the medicines you take. How can you care for yourself at home? Take your medicines exactly as prescribed. Call your doctor if you think you are having a problem with your medicine. Ask your doctor about mwnn-jmr-rlssqgu (OTC) medicines for yeast infections. They may cost less than prescription medicines. If you use an OTC treatment, read and follow all instructions on the label. Don't use tampons while using a vaginal cream or suppository. The tampons can absorb the medicine. Use pads instead. Wear loose cotton clothing. Don't wear nylon or other fabric that holds body heat and moisture close to the skin. Try sleeping without underwear. Don't scratch. Relieve itching with a cold pack or a cool bath. Don't wash your vaginal area more than once a day. Use plain water or a mild, unscented soap. Air-dry the vaginal area. Change out of wet swimsuits after swimming. If you are using a vaginal medicine, don't have sex until you have finished your treatment. But if you do have sex, don't depend on a condom or diaphragm for control. The oil in some vaginal medicines weakens latex. Don't douche. When should you call for help? Call your doctor now or seek immediate medical care if: You have unexpected vaginal bleeding. You have new or increased pain in your vagina or pelvis. Watch closely for changes in your health, and be sure to contact your doctor if: You have a fever. You are not getting better after 2 days. Your symptoms come back after you finish your medicines. Where can you learn more? Log into your personal health record on https://Suksh Tech.hart.[employer] and enter F639 in the Education box to learn more about Vaginal Yeast Infection: Care Instructions. Current as of: October 21, 2019 Content Version: 12.8 Odersun. Care instructions adapted under license by your healthcare professional. If you have questions about a medical condition or this instruction, always ask your healthcare professional. O[employer]un disclaims any warranty or liability for your use of this information. documented in this encounterOhioHealthEvaluation note* Diagnosis Vaginal discharge- Primary Leukorrhea, not specified as infective Bacterial vaginosis Unspecified vaginitis and vulvovaginitis documented in this encounter [facility] note* Diagnosis Ganglion, right wrist- Primary documented in this encounter [facility] note* Diagnosis Depression, unspecified depression type- Primary Ganglion of wrist, unspecified laterality Establishing care with new doctor, encounter for documented in this encounter [facility] note* Diagnosis Ganglion, right wrist- Primary documented in this encounter [facility] note* Diagnosis Ganglion, right wrist- Primary Exposure to SARS-associated coronavirus Ganglion, right wrist- Primary documented in this encounter [facility] note* Diagnosis Ganglion, right wrist- Primary Depression, unspecified depression type- Primary Ganglion, right wrist documented in this encounter [facility] note* Diagnosis Ganglion, right wrist- Primary Exposure to SARS-associated coronavirus Ganglion, right wrist- Primary Ganglion, right wrist documented in this encounter [facility] note* Diagnosis Vaginal discharge- Primary Leukorrhea, not specified as infective documented in this encounter [facility] note* Diagnosis Depression, unspecified depression type- Primary Injury of right ankle, subsequent encounter PCOS (polycystic ovarian syndrome) Polycystic ovaries documented in this encounter [facility] note* Diagnosis Depression, unspecified depression type documented in this encounter [facility] note* Diagnosis Encounter for physical examination related to employment- Primary documented in this encounter [facility] note* Diagnosis Depression, unspecified depression type documented in this encounter [facility] note* Diagnosis Anxiety with depression- Primary PCOS (polycystic ovarian syndrome) Polycystic ovaries Abnormal facial hair Hirsutism Class 1 obesity with body mass index (BMI) of 33.0 to 33.9 in adult, unspecified obesity type, unspecified whether serious comorbidity present Screening for hyperlipidemia Screening for lipoid disorders Screening for thyroid disorder documented in this encounter [facility] note* Diagnosis Acute left ankle pain- Primary Sprain of ligament of left ankle, initial encounter Fall, initial encounter Acute left ankle pain documented in this encounter [facility] note* Diagnosis Acute left ankle pain documented in this encounter [facility] note* Diagnosis VIVIANA (generalized anxiety disorder)- Primary Generalized anxiety disorder Panic disorder Panic disorder without agoraphobia Class 1 obesity with body mass index (BMI) of 33.0 to 33.9 in adult, unspecified obesity type, unspecified whether serious comorbidity present [facility] VIVIANA (generalized anxiety disorder)- Primary Generalized anxiety disorder Panic disorder Panic disorder without agoraphobia Amenorrhea Absence of menstruation Encounter for initial prescription of contraceptive pills General counseling for prescription of oral contraceptives Class 2 obesity with body mass index (BMI) of 37.0 to 37.9 in adult, unspecified obesity type, unspecified whether serious comorbidity present [facility]* Diagnosis VIVIANA (generalized anxiety disorder)- Primary Generalized anxiety disorder Panic disorder Panic disorder without agoraphobia Amenorrhea Absence of menstruation Family history of polycystic kidney Class 2 obesity with body mass index (BMI) of 38.0 to 38.9 in adult, unspecified obesity type, unspecified whether serious comorbidity present [facility]* Diagnosis Abnormal uterine bleeding- Primary Unspecified disorder of menstruation and other abnormal bleeding from female genital tract Breakthrough bleeding on control pills Metrorrhagia [facility]* Diagnosis Irregular periods- Primary Irregular menstrual cycle Personal history of contraception Personal history of contraception, presenting hazards to health [facility]* Diagnosis Insertion of implantable subdermal contraceptive- Primary [facility]* Diagnosis Encounter for gynecological examination (general) (routine) without abnormal findings- Primary Screening for cervical cancer Screening for malignant neoplasm of the cervix Encounter for screening for human papillomavirus (HPV) Special screening examination for human papillomavirus (HPV) Vaginal discharge Leukorrhea, not specified as infective [facility]* Diagnosis Cervical high risk HPV (human papillomavirus) test positive- Primary Cervical high risk human papillomavirus (HPV) DNA test positive [facility] noteNo assessment information availableWMiddletown Hospital Work Phone: Hospital Discharge instructionsAdditional Instructions Ice to your jaw. Motrin and Tylenol for pain. Penicillin 4 times a day. Call the clinic tell them you need dental care for fractured tooth and cavities and get an appointment set up. They are across the [address] from the hospital.[facility] Work Phone: Instructions* Attachments The following attachments cannot be sent through Care Everywhere. * Lifestyle: Healthy ([place]) documented in this encounterOhioHealthReason for referral (narrative)No reason for referral information availableWMiddletown Hospital Work Phone: Reason for visit Narrative* Diagnostic Procedure Only (Urgent) - Closed Specialty Diagnoses / Procedures Referred By Guy colunga Referred To Contact XR IMAGING Diagnoses Acute left ankle pain Procedures XR ANKLE GENERAL 3V AP/LAT/OBL LEFT RADEX ANKLE COMPLETE MINIMUM 3 VIEWS Anusha Guillory APRN.SLEEVE IRONER [address] [place] [address] Phone: tel: fax: [place] [id number] Referral ID Status Reason Start Date Expiration Date V isits Requested Visits Authorized [id number] Closed Auto-Generate d Referral 06/07/2024 07/07/2025 1 1 [facility] Summary Purpose Family History No Family History Records FoundNo Family History Records FoundNo Family History Records FoundNo Family History Records FoundNo Family History Records FoundNo Family History Records FoundNo Family History Records FoundNo Family History Records FoundNo Family History Records FoundNo Family History Records Found Advance Directives Documents on File Type Date Recorded Patient Vice President Media Relations Expl anation Advance Directives and Living Will Documents on File Type Date Recorded Patient Vice President Media Relations Expl anation Advance Directives and Living Will Documents on File Type Date Recorded Patient Vice President Media Relations Expl anation Advance Directives and Livin g Will 12/03/2020 7:21 AM Documents on File Type Date Recorded Patient Vice President Media Relations Expl anation Advance Directives and Livin g Will 12/07/2020 12:02 PM Documents on File Type Date Recorded Patient Vice President Media Relations Expl anation Advance Directives and Livin g Will 12/14/2020 5:49 AM Documents on File Type Date Recorded Patient Vice President Media Relations Expl anation Advance Directives and Livin g Will 06/12/2021 9:13 PM Advance Directive Response Recorded Date/ Time Do you have a Healthcare Power of Cable Tender? No October 24, 2024 4:02pm Reason for Referral Status Reason Specialty Diagnoses / Procedures Referred By Contact Referred To Contact Authorized Orthopedic Surgery Diagnoses Ganglion, right wrist Roosevelt-Branden, Marco Antonio Diaz, SLEEVE IRONER [address] [place] [id number] Specialty Diagnoses / Procedures Referred By Guy t Referred To Contact Diagnoses Injury of right ankle, subsequent encounter Lele Al, DO [address] [place] [address] [place] [id number] [facility] [place] [id number] [place] [address] Phone: [phone] Fax: [phone] Referral ID Status Reason Start Date Expiration Date Visits Requested Visits Authorized [id number] Authorized Patient Preference 07/11/2021 07/11/2022 1 1 Chief Complaint and Reason for Visit Chief Complaint Admit Date dental October 24, 2024 3:55 pm Additional Source Comments INFORMATION SOURCE (unrecogn ized section and content) DATE CREATED AUTHOR 06/24/2019 [facility] DATE CREATED AUTHOR AUTHOR'S ORGANIZ ATION 08/25/2019 [facility] DATE CREATED AUTHOR AUTHOR'S ORGANIZ ATION 12/15/2020 [facility] DATE CREATED AUTHOR AUTHOR'S ORGANIZ ATION 05/10/2021 [facility] DATE CREATED AUTHOR AUTHOR'S ORGANIZ ATION 07/13/2021 [facility] DATE CREATED AUTHOR AUTHOR'S ORGANIZ ATION 11/10/2021 [facility] DATE CREATED AUTHOR AUTHOR'S ORGANIZ ATION 03/08/2022 [facility] DATE CREATED AUTHOR AUTHOR'S ORGANIZ ATION 02/13/2024 [facility] DATE CREATED AUTHOR AUTHOR'S ORGANIZ ATION 07/28/2024 [facility] DATE CREATED AUTHOR AUTHOR'S ORGANIZ ATION 10/14/2024 [facility] Reason for Visit (unrecogniz ed section and content) Reason Comments Vaginal Discharge with itching x4 days Reason Comments Mass R wrist x 1week tend er to touch NKI Reason Comments wrist pain with cyst worse with movement Reason Comments Pain Specialty Diagnoses / Procedures Referred By Contdaquan t Referred To Contact Orthopedic Surgery Diagnoses Ganglion, right wrist Marco Antonio Mix, ÁNGEL [address] [place] [address] Kelechi Polanco MD [address] [place] [address] Referral ID Status Reason Start Date Expiration Date Visits Re quested Visits Authorized [id number] Closed 10/26/2020 10/26/2021 1 1 Reason Comments Follow-up f/u on antidepressan ts, pt feels better with medications Reason Comments Exposure to STD 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 Having symptoms x1 week Reason Comments rt ankle pain and swelling cont froom in jury in june Asking for fmla paperwork Reason Onset Date Comments Medication Refill 08/22/2021 Reason Comments Immunizations TDAP given Reason Comments Annual Exam Reason Onset Date Comments Medication Refill 11/23/2021 Reason Onset Date Comments ED Follow-up 03/07/2022 Reason Comments Establish Care Depression Sleep Problem PCOS Reason Comments Ankle Injury left ankle swelling and bruising x 3 days, rolled it Reason Comments Panic attacks Had one Thursday and T - felt this way around 4 hours Chest Pain Chest gets very tigh t and difficult to breathe\ Anxiety Very fidgety Dizziness Reason Comments Anxiety 1 week recheck. Codi ent states she stopped the clonazepam PCOS Requesting con trol Results Discuss recent labs Reason Comments Anxiety Follow up for medica tionFeeling a little better Contraception Would like to discus s changing control She would prefer to not have a period Reason Comments Vaginal Bleeding X16 days, worse x3 d ays Reason Comments Contraception Reason Comments Nexplanon insertion Specialty Diagnoses / Procedures Referred By Guy colunga Referred To Contact [facility] Diagnoses Irregular periods Procedures NEXPLANON INSERTION ETONOGESTREL IMPLANT SYSTEM INSERT DRUG IMPLANT DEVICE Wendy Bennett APRN.NATHANIEL [address] [place] [address] Phone: tel: fax: [facility] [address] [place] [address] Referral ID Status Reason Start Date Expiration Date V isits Requested Visits Authorized [id number] Closed Auto-Generate d Referral 08/31/2024 08/31/2025 1 1 Reason Comments [facility] Teams (unrecognized sec tion and content) Proof Machine Operator Relationship Specialty Start Date End Date Lele Al DO [address] [place] [address] PCP - General Family Medicine 11/06/20 Proof Machine Operator Relationship Specialty Start Date End Date Servando, Lele Alvarado, DO [address] [place] [address] [place] [address], [place] [id number] PCP - General Family Medicine 11/06/20 Proof Machine Operator Relationship Specialty Start Date End Date Servando, Lele Alvarado, DO [address] [place] [address] [place] [address], [place] [id number] PCP - General Family Medicine 11/06/20 Proof Machine Operator Relationship Specialty Start Date End Date Servando, Lele Alvarado, DO [address] [place] [address] [place] [address], [place] [id number] PCP - General Family Medicine 11/06/20 Proof Machine Operator Relationship Specialty Start Date End Date ServandoLeleph, DO [address] [place] [address], [place] [id number] PCP - General Family Medicine 11/06/20 Proof Machine Operator Relationship Specialty Start Date End Date Servando Lele Reisph, DO [address] [place] [address], [place] [id number] PCP - General Family Medicine 11/06/20 Proof Machine Operator Relationship Specialty Start Date End Date ServandoLele bolesph, DO [address] [place] [address], [place] [id number] PCP - General Family Medicine 11/06/20 Proof Machine Operator Relationship Specialty Start Date End Date ServandoLeleph, DO [address] [place] [address], [place] [id number] PCP - General Family Medicine 11/06/20 Proof Machine Operator Relationship Specialty Start Date End Date ServandoLele bolesph, DO [address] [place] [address] PCP - General Family Medicine 11/06/20 Proof Machine Operator Relationship Specialty Start Date End Date No, Physician [facility] PCP - General 03/05/22 Keaton Sorenson Community [facility] Worker Case Management 03/07/2203/07/22 Proof Machine Operator Relationship Specialty Start Date End Date More Galarza [address] [place] [id number] PCP - General Family Medicine 05/26/24 Proof Machine Operator Relationship Specialty Start Date End Date More Galarza [address] [place] [id number] PCP - General Family Medicine 05/26/24 Proof Machine Operator Relationship Specialty Start Date End Date Favio Galarzaland Shraddha [address] [place] [id number] PCP - General Family Medicine 05/26/24 Proof Machine Operator Relationship Specialty Start Date End Date Favio Galarzaland Shraddha [address] [place] [id number] PCP - General Family Medicine 05/26/24 Proof Machine Operator Relationship Specialty Start Date End Date Favio Galarzaland Shraddha [address] [place] [id number] PCP - General Family Medicine 05/26/24 Proof Machine Operator Relationship Specialty Start Date End Date Geovanni More Shraddha [address] [place] [id number] PCP - General Family Medicine 05/26/24 Proof Machine Operator Relationship Specialty Start Date End Date oMre Galarza DO [address] [place] [address] PCP - General Family Medicine 05/26/24 Proof Machine Operator Relationship Specialty Start Date End Date More Galarza DO [address] [place] [id number] PCP - General Family Medicine 05/26/24 Proof Machine Operator Relationship Specialty Start Date End Date More Galarza DO [address] [place] [id number] PCP - General Family Medicine 05/26/24 Proof Machine Operator Relationship Specialty Start Date End Date More Galarza DO [address] [place] [id number] PCP - General Family Medicine 05/26/24 Proof Machine Operator Relationship Specialty Start Date End Date More Galarza DO [address] [place] [id number] PCP - General Family Medicine 05/26/24 Team Status: Active Member Role/Relationship Status Dates Dr. Gopal Galarza DO Primary Care Provider Acti ve Team Status: Inactive Member Role/Relationship Status Dates Dr. Ruslan Wade MD Emergency Provider Active S tart: October 24, 2024 End: October 24, 2024 Dr. Gopal Galarza DO Primary Care Provider Acti ve Start: October 24, 2024 End: October 24, 2024 Source Comments (unrecognize d section and content) In the event this informatio n is protected by the Federal Confidentiality of Alcohol and Drug Abuse Patient Records regulations: The Federal rules restrict any use of the information to criminally investigate or prosecute any alcohol or drug abuse patient.[facility] the event this information is protected by the Federal Confidentiality of Alcohol and Drug Abuse Patient Records regulations: The Federal rules restrict any use of the information to criminally investigate or prosecute any alcohol or drug abuse patient.[facility] the event this information is protected by the Federal Confidentiality of Alcohol and Drug Abuse Patient Records regulations: The Federal rules restrict any use of the information to criminally investigate or prosecute any alcohol or drug abuse patient.[facility] the event this information is protected by the Federal Confidentiality of Alcohol and Drug Abuse Patient Records regulations: The Federal rules restrict any use of the information to criminally investigate or prosecute any alcohol or drug abuse patient.[facility] the event this information is protected by the Federal Confidentiality of Alcohol and Drug Abuse Patient Records regulations: The Federal rules restrict any use of the information to criminally investigate or prosecute any alcohol or drug abuse patient.[facility] the event this information is protected by the Federal Confidentiality of Alcohol and Drug Abuse Patient Records regulations: The Federal rules restrict any use of the information to criminally investigate or prosecute any alcohol or drug abuse patient.[facility] the event this information is protected by the Federal Confidentiality of Alcohol and Drug Abuse Patient Records regulations: The Federal rules restrict any use of the information to criminally investigate or prosecute any alcohol or drug abuse patient.[facility] the event this information is protected by the Federal Confidentiality of Alcohol and Drug Abuse Patient Records regulations: The Federal rules restrict any use of the information to criminally investigate or prosecute any alcohol or drug abuse patient.[facility] the event this information is protected by the Federal Confidentiality of Alcohol and Drug Abuse Patient Records regulations: The Federal rules restrict any use of the information to criminally investigate or prosecute any alcohol or drug abuse patient.[facility] the event this information is protected by the Federal Confidentiality of Alcohol and Drug Abuse Patient Records regulations: The Federal rules restrict any use of the information to criminally investigate or prosecute any alcohol or drug abuse patient.[facility] the event this information is protected by the Federal Confidentiality of Alcohol and Drug Abuse Patient Records regulations: The Federal rules restrict any use of the information to criminally investigate or prosecute any alcohol or drug abuse patient.[facility] Center[facility] the event this information is protected by the Federal Confidentiality of Alcohol and Drug Abuse Patient Records regulations: The Federal rules restrict any use of the information to criminally investigate or prosecute any alcohol or drug abuse patient.[facility] Center[facility] the event this information is protected by the Federal Confidentiality of Alcohol and Drug Abuse Patient Records regulations: The Federal rules restrict any use of the information to criminally investigate or prosecute any alcohol or drug abuse patient.[facility] Center[facility] the event this information is protected by the Federal Confidentiality of Alcohol and Drug Abuse Patient Records regulations: The Federal rules restrict any use of the information to criminally investigate or prosecute any alcohol or drug abuse patient.[facility] Goals (unrecognized section and content) Goals may be documented in a n alternate section FOR RECORDS PERTAINING TO PATIENTS WHO ARE OR HAVE BEEN ENROLLED IN A CHEMICAL DEPENDENCY/SUBSTANCEABUSE PROGRAM, SOME INFORMATION MAY BE OMITTED. This clinical summary was aggregated from multiple sources. Caution should be exercised in using it in the provision of clinical care. This summary normalizes information from multiple sources, and as a consequence, information in this document may materially change the coding, format and clinical context of patient data. In addition, data may be omitted in some cases. CLINICAL DECISIONS SHOULD BE BASED ON THE PRIMARY CLINICAL RECORDS. [facility] Pay with a [employer] [facility]. provides no warranty or guarantee of the accuracy or completeness of information in this document.
== END 2024-10-24 16:43 | disposition home or self-care (01) ==
PROVIDERS: Emergency Provider Emergency Medicine; PCP Family Medicine; Visit Provider Emergency Medicine
DX: K02.9 Dental caries, unspecified (principal); S02.5XXA Fracture of tooth (traumatic), initial encounter for closed fracture
CPT/HCPCS: 99282